=== PATIENT | female | born 1950 | race Caucasian/White ===

== ENCOUNTER → 2016-06-20 | Day surgery (SDC) | payer OTHER ==
[2016-06-10 08:52] VITALS: Ht 162.6 cm; Wt 84.1 kg
[~2016-06-20] VITALS: Ht 162.6 cm; Wt 84.1 kg
[~2016-06-20] MED LIST: ASPI81TA28 PO; CALC600T37 PO; CHOL1TAB42 PO; COEN1CAP7 PO; DEXAMETHASONE SOD INJ 4 MG/ML VIAL ONE; DILT1CAP PO; FLEC100T21 PO; FLEC50TA20 PO; FURO-85 PO; LIDOCAINE HCL 1% MPF 5 ML VIAL ONE; MAGN400T6 PO; OMEP40CA PO; SIMV20TA2 PO; SPIR50TA2 PO
--- NOTE | 2016-06-20 08:09 | History & Physical Bridge - [place] ---
H&P Re-Evaluation Bridge Note: I have examined the patient, reviewed the History & Physical and in the interval since the performance of the History & Physical I have noted the following changes of clinical significance: No changes noted
--- NOTE | 2016-06-20 08:28 | Discharge Instructions-SurgCtr ---
Discharge Instructions Visit Reason for Visit: Scoliosis Of Lumbar Spine, Chronic Low Back Pain Discharge Discharge Diagnosis / Problem: scoliosis Discharge Goals Goal(s): Improve function Activity Recommendations Activity Limitations: resume your previous activity Lifting Limitations: none Exercise/Sports Limitations: none May Resume Sexual Activity: when tolerated Shower/Bathe: no limitations Driving or Machine Use: no limitations Anesthesia . Post Anesthesia Instructions: If you have had General Anesthesia or IV Sedation: * Do not drive today. * Resume driving when surgeon permits. * Do not make important decisions or sign legal documents today. * Call surgeon for: 1. Temperature elevations greater than 101 degrees F. 2. Uncontrollable pain. 3. Excessive bleeding. 4. Persistent nausea and vomiting. 5. Medication intolerance (nausea, vomiting or rash). * For nausea and vomiting use only clear liquids such as: tea, soda, bouillon until nausea subsides, then gradually increase diet as tolerated. * If you have any concerns or questions, call your surgeon's office. If physician is unavailable and it is an emergency, call 911 or go to the nearest emergency room. . Diet Recommendations Home Diet: resume previous diet Fluid Restriction: None Procedures Procedures Performed: LUMBAR EPIDURAL STEROID INJECTION Pending Studies Studies pending at discharge: no Medical Emergencies . Who to Call and When: Medical Emergencies: If at any time you feel your situation is an emergency, please call 911 immediately. . Non-Emergent Contact Non-Emergency issues call your: Surgeon Call Non-Emergent contact if: your pain is concerning you . . "Provider Documentation" section prepared by Tushar Hansen.
--- NOTE | 2016-06-20 08:29 | [facility] Post Operative Brief Note ---
Immediate Operative Summary Operative Date Jun 20, 2016. Pre-Operative Diagnosis SCOLIOSIS Post-Operative Diagnosis SCOLIOSIS Procedure(s) Performed LUMBAR EPIDURAL STEROID INJECTION Surgeon DR. Axel MORRISON Findings severe scoliosis Complication(s) None Disposition Recovery Room / PACU
[2016-06-20 08:32] VITALS: TEMP 36.9
--- NOTE | 2016-06-20 08:36 | OPERATIVE REPORT ---
DATE OF OPERATION: 06/20/2016 PREOPERATIVE DIAGNOSIS: Severe scoliosis lumbar spine. POSTOPERATIVE DIAGNOSIS: Same. PROCEDURE: Epidural steroid L5-S1 lumbar spine. SURGEON: Dr. Hansen. COMPLICATIONS: 0. BLOOD LOSS: 0. DESCRIPTION OF PROCEDURE: The patient was taken to the minor procedure room and placed prone, prepped and draped sterile. We engaged the 22 gauge Tuohy needle to the epidural space. 2 mL of dexamethasone injected without incident. There were no complications. There were no problems. She was discharged home in improved stable condition. I attest to the content of the Intraoperative Record and any orders documented therein. Any exceptio ns are noted below.
[2016-06-20 08:49] VITALS: BP 116/74; PULSE 54; O2SAT 94
== END | disposition home or self-care (01) ==
LOC: X.SURG 06:50
PROVIDERS: ATTEND Orthopaedic Surgery Orthopaedic Surgery of the Spine
DX: M41.87 Other forms of scoliosis, lumbosacral region (principal); I10 Essential (primary) hypertension; Z88.2 Allergy status to sulfonamides; Z96.649 Presence of unspecified artificial hip joint; Z98.890 Other specified postprocedural states; Z90.710 Acquired absence of both cervix and uterus

== ENCOUNTER → 2016-06-28 | Outpatient (CLI) | payer OTHER ==
[~2016-06-28] MED LIST changes: -DEXAMETHASONE SOD INJ 4 MG/ML VIAL ONE; -LIDOCAINE HCL 1% MPF 5 ML VIAL ONE
--- NOTE | 2016-06-28 12:18 | DIAGNOSTIC IMAGING REPORT ---
CHEST 2 VIEWS ROUTINE HISTORY: BRONCHITIS COMPARISON: Chest 11/09/2013. FINDINGS: Chronic elevation of the right hemidiaphragm. Moderate hiatus hernia, unchanged. The heart is normal in size. No new focal lung consolidations to suggest pneumonia. No evidence for pulmonary edema. Stable linear scarlike density within the right lung apex and mild right apical pleural thickening. No pleural effusions. No pneumothorax. Stable linear densities at the left lung base consistent with subsegmental atelectasis or scarring. IMPRESSION: No significant change compared to the prior study. No acute process. Electronically signed by: Stefano Dnonelly M.D. 06/28/2016 12:17 PM Dictated Date/Time: 06/28/2016 12:14 PM
== END | disposition home or self-care (01) ==
LOC: C.RADPV 11:51
PROVIDERS: ATTEND Family Medicine
DX: J40 Bronchitis, not specified as acute or chronic (principal)

== ENCOUNTER → 2017-05-21 | Day surgery (SDC) | payer OTHER ==
[2017-05-16 09:19] VITALS: Ht 160 cm; Wt 84.1 kg
[~2017-05-21] VITALS: Ht 160 cm; Wt 84.1 kg
[~2017-05-21] MED LIST changes: +DEXAMETHASONE SOD INJ 4 MG/ML VIAL ONE; +DILT-115 PO; +DILT120C68 PO; -DILT1CAP PO; -FURO-85 PO; +HYZ/50125 PO; +LIDOCAINE HCL 1% MPF 5 ML VIAL ONE; -OMEP40CA PO; +OMEP40CA41 PO; +SPIR25TA6 PO; -SPIR50TA2 PO; +ZYCAM PO
--- NOTE | 2017-05-21 07:35 | Discharge Instructions-SurgCtr ---
Discharge Instructions Date of Service May 21, 2017. Visit Reason for Visit: Scoliosis Discharge Discharge Diagnosis / Problem: SAME Discharge Goals Goal(s): Improve function Activity Recommendations Activity Limitations: resume your previous activity Anesthesia . Post Anesthesia Instructions: If you have had General Anesthesia or IV Sedation: * Do not drive today. * Resume driving when surgeon permits. * Do not make important decisions or sign legal documents today. * Call surgeon for: 1. Temperature elevations greater than 101 degrees F. 2. Uncontrollable pain. 3. Excessive bleeding. 4. Persistent nausea and vomiting. 5. Medication intolerance (nausea, vomiting or rash). * For nausea and vomiting use only clear liquids such as: tea, soda, bouillon until nausea subsides, then gradually increase diet as tolerated. * If you have any concerns or questions, call your surgeon's office. If physician is unavailable and it is an emergency, call 911 or go to the nearest emergency room. . Diet Recommendations Home Diet: no limitations Procedures Procedures Performed: L4-5, L5-S1 Epidural Steroid Injections Pending Studies Studies pending at discharge: no Medical Emergencies . Who to Call and When: Medical Emergencies: If at any time you feel your situation is an emergency, please call 911 immediately. . Non-Emergent Contact Non-Emergency issues call your: Primary Care Provider . . "Provider Documentation" section prepared by Tushar Hansen. .
--- NOTE | 2017-05-21 07:35 | [facility] Post Operative Brief Note ---
Immediate Operative Summary Operative Date May 21, 2017. Pre-Operative Diagnosis Scoliosis Post-Operative Diagnosis Scoliosis Procedure(s) Performed L4-5, L5-S1 Epidural Steroid Injections Surgeon Dr. Axel Hansen Forgeman Helper Surgeon(s) None Estimated Blood Loss 0 Findings SCOLIOSIS Specimens 0 Complication(s) None Disposition Recovery Room / PACU
[2017-05-21 07:38] VITALS: TEMP 36.6
[2017-05-21 07:45] VITALS: BP 124/77; PULSE 64; O2SAT 96
--- NOTE | 2017-05-21 08:37 | OPERATIVE REPORT ---
DATE OF OPERATION: 05/21/2017 PREOPERATIVE DIAGNOSIS: Stenosis and scoliosis lumbar spine. POSTOPERATIVE DIAGNOSIS: Same. PROCEDURE: Epidural steroid injection L4-L5 and L5-S1 lumbar spine. SURGEON: Dr. Hansen. COMPLICATIONS: None. DESCRIPTION OF PROCEDURE: The patient was taken to the minor procedure room and placed prone, scrubbed, prepped and draped sterile. I advanced the 22 gauge Tuohy needle to the epidural space centrally at L4-L5 and L5-S1. I used a volume acceptance technique. One mL of dexamethasone injected to these areas without incident. There were no complications. The patient returned to recovery room and discharged home. I attest to the content of the Intraoperative Record and any orders documented therein. Any exception s are noted below.
== END | disposition home or self-care (01) ==
LOC: X.SURG 06:30
PROVIDERS: ATTEND Orthopaedic Surgery Orthopaedic Surgery of the Spine
DX: M48.061 Spinal stenosis, lumbar region without neurogenic claudication (principal); M41.9 Scoliosis, unspecified; Z96.649 Presence of unspecified artificial hip joint; Z98.890 Other specified postprocedural states; Z90.710 Acquired absence of both cervix and uterus; Z86.718 Personal history of other venous thrombosis and embolism; I10 Essential (primary) hypertension; Z82.49 Family history of ischemic heart disease and other diseases of the circulatory system; Z82.3 Family history of stroke

== ENCOUNTER → 2017-06-17 | Outpatient (CLI) | payer OTHER ==
[~2017-06-17] MED LIST changes: -DEXAMETHASONE SOD INJ 4 MG/ML VIAL ONE; -HYZ/50125 PO; -LIDOCAINE HCL 1% MPF 5 ML VIAL ONE; -SPIR25TA6 PO; +SPR25 PO; -ZYCAM PO
--- NOTE | 2017-06-17 14:37 | MAMMOGRAPHY REPORT ---
BILATERAL DIGITAL SCREENING MAMMOGRAM TOMOSYNTHESIS WITH CAD: 06/17/2017 CLINICAL HISTORY: Routine screening. Patient has no complaints. TECHNIQUE: Breast tomosynthesis in addition to standard 2D mammography was performed. Current study was also evaluated with a Computer Aided Detection (CAD) system. COMPARISON: Comparison is made to exams dated: 05/07/2016 mammogram, 02/11/2011 mammogram, 09/06/2009 mammogram - [facility], 07/27/2008, 07/22/2007, and 07/16/2006. BREAST COMPOSITION: There are scattered areas of fibroglandular density in both breasts. FINDINGS: There is stable nodularity bilaterally, and stable focal asymmetry in the upper outer midd le one third of the left breast. Mild vascular calcification in the breasts. No new suspicious mass , architectural distortion or cluster of microcalcifications is seen. IMPRESSION: ACR BI-RADS CATEGORY 1: NEGATIVE There is no mammographic evidence of malignancy. A 1 year screening mammogram is recommended. The pa tient will receive written notification of the results. Approximately 10% of breast cancers are not detected with mammography. A negative mammographic report should not delay biopsy if a clinically suggestive mass is present. Debbie Gonzalez M.D. ay/:06/17/2017 08:16:33 V Belt Finisher: Chelle Oshea, [facility] letter sent: Normal 1/2 BI-RADS Code: ACR BI-RADS Category 1: Negative
== END | disposition home or self-care (01) ==
LOC: C.MAMM 07:20
PROVIDERS: ATTEND Family Medicine
DX: Z12.31 Encounter for screening mammogram for malignant neoplasm of breast (principal)

== ENCOUNTER → 2017-07-03 | Day surgery (SDC) | payer OTHER ==
[2017-06-26 09:12] VITALS: Ht 160 cm; Wt 84.1 kg
[~2017-07-03] VITALS: Ht 160 cm; Wt 84.1 kg
[~2017-07-03] MED LIST changes: +ALBUT/IPRATROP 3MG/0.5MG NEB 3 ML VIAL INH ONE; +FENTANYL CITRATE INJ 50 MCG/1 ML 2 ML VIAL ONE; +HYZ/50125 PO; +LIDOCAINE HCL 2% 2 ML VIAL (20MG/ML) ONE; +PROPOFOL IV EMULSION 10 MG/ML 20 ML VIAL IV ONE; +SODIUM CHLORIDE 0.9% 500ML 500 ML IV ONE; +ZYCAM PO
[2017-07-03 14:33] VITALS: TEMP 37
--- NOTE | 2017-07-03 14:33 | Endo History and Physical ---
History & Physical Date of Service: Jul 03, 2017. Chief Complaint: chronic reflux esophagitis Referring Physician: Dr. Amrik Martinez History of Present Illness 67 yo CF who presents for colonoscopy secondary to Chronic GERD. Past Medical History Atrial Fibrillation, Arthritis, Gastrointestinal Disorder, Pulmonary Emboli, Reflux, Hypertension Past Surgical History Hx Cardiac Surgery: Yes (CARDIOVERSION) Hx Internal Defibrillator: No Hx Pacemaker: No Hx Abdominal Surgery: Yes (HERNIA REPAIR, HYSTER (WITHIN 3 SURGERIES)) Hx of Implantable Prosthesis: No Hx Post-Op Nausea and Vomiting: No Hx Cancer Surgery: No Hx Thoracic Surgery: No Hx Orthopedic: Yes (LT DAVID, RT HIP ABCESS REMOVAL) Hx Urinary Tract Surgery: No Family History None Social History Smoking Status: Never Smoker Hx Substance Use: No Hx Alcohol Use: No Allergies Coded Allergies: Penicillins (Verified Allergy, Intermediate, UPSET STOMACH - CAN TOLERATE IF NEEDED, 06/26/17) Sulfa Drugs (Verified Allergy, Intermediate, RASH/HIVES, 06/26/17) Latex1 -Allergic Contact Dermititis (Verified Adverse Reaction, Mild, POWDER IN LATEX GLOVES-->ITCHING, SENSITIVITY NOT ALLERGY, 06/26/17) Codeine (Verified Adverse Reaction, Unknown, PROJECTILE VOMITING,HEADACHE , 06/26/17) Current Medications Reported Home Medications Medications Dose Route/Sig Max Daily Dose Days Date Category [Zycam] 1 Tab PO DAILY PRN 06/26/17 Reported Hyzaar 12.5MG/50MG (HCTZ/Losartan Potassium) Tab 1 Tab PO QAM 06/26/17 Reported Tiazac (Diltiazem HCl) 240 Mg Capcr 240 Mg PO QAM 05/16/17 Reported Tiazac (Diltiazem HCl) 120 Mg Capcr 120 Mg PO HS 05/16/17 Reported Prilosec (Omeprazole) 40 Mg Cap 40 Mg PO QAM 05/16/17 Reported Spironolactone 25 Mg Tab 25 Mg PO QAM 05/16/17 Reported Aspirin Ec (Aspirin) 81 Mg Tab 81 Mg PO QPM 06/20/16 Reported Vitamin D (Cholecalciferol) 5,000 Unit Tab 1 Tab PO QAM 06/10/16 Reported Calcium 600 Mg Tab 2 Tabs PO QAM 06/10/16 Reported Zocor (Simvastatin) 20 Mg Tab 20 Mg PO QPM 06/10/16 Reported Tambocor (Flecainide Acetate) 50 Mg Tab 50 Mg PO HS 06/10/16 Reported Tambocor (Flecainide Acetate) 100 Mg Tab 100 Mg PO QAM 06/10/16 Reported Coq10 (Coenzyme Q10 (Ubidecarenone)) 200 Mg Cap 200 Mg PO QAM 11/09/13 Reported Mag-Ox (Magnesium Oxide) 400 Mg Tab 400 Mg PO BID 11/09/13 Reported Vital Signs Weight (Kilograms): 84.09 Height (Feet): 5 Height (Inches): 3 Physical Exam General Appearance: WD/WN, no apparent distress Respiratory/Chest: Auscultation: breath sounds normal Cardiovascular: Heart Auscultation: RRR Abdomen: Bowel Sounds: normal Inspection & Palpation: soft, non-distended, no tenderness, guarding & rebound Assessment and Plan Assessment: 67 yo CF who presents for colonoscopy secondary to Chronic GERD. Plan: Proceed with EGD.
--- NOTE | 2017-07-03 15:42 | GI REPORT ---
Procedure Date: 07/03/2017 3:03 PM THIS REPORT HAS BEEN AMENDED Addendum Number: 1 Addendum Date: 07/03/2017 3:45:07 PM Start Carafate 1g by mouth Four times daily prior to each meal and at bedtime for 10 days. Procedure: Upper GI endoscopy Indications: Gastro-esophageal reflux disease Medicines: Monitored Anesthesia Care Complications: No immediate complications. Estimated Blood Loss: Estimated blood loss: none. Procedure: Pre-Anesthesia Assessment: - Prior to the procedure, a History and Physical was performed, and patient medications and allergies were reviewed. The patient's tolerance of previous anesthesia was also reviewed. The risks and benefits of the procedure and the sedation options and risks were discussed with the patient. All questions were answered, and informed consent was obtained. Prior Anticoagulants: The patient has taken no previous anticoagulant or antiplatelet agents. ASA Grade Assessment: II - A patient with mild systemic disease. After reviewing the risks and benefits, the patient was deemed in satisfactory condition to undergo the procedure. After obtaining informed consent, the endoscope was passed under direct vision. Throughout the procedure, the patient's blood pressure, pulse, and oxygen saturations were monitored continuously. The scope was introduced through the mouth, and advanced to the second part of duodenum. The upper GI endoscopy was accomplished without difficulty. The patient tolerated the procedure well. Findings: The esophagus was normal. A medium-sized hiatal hernia was present. Two non-bleeding cratered gastric ulcers with no stigmata of bleeding were found in the gastric antrum. The largest lesion was 5 mm in largest dimension. Biopsies were taken with a cold forceps for histology. The examined duodenum was normal. Impression: - Normal esophagus. - Medium-sized hiatal hernia. - Non-bleeding gastric ulcers with no stigmata of bleeding. Biopsied. - Normal examined duodenum. Recommendation: - Resume previous diet. - Continue present medications. - Await pathology results. - Return to primary care physician as previously scheduled. William Karolyn Sarmiento DO 07/03/2017 3:41:40 PM This report has been signed electronically. Note Initiated On: 07/03/2017 3:03 PM I attest to the content of the Intraoperative Record and orders documented therein, exceptions below William MccannRakesh Sarmiento, DO 07/03/2017 3:45:40 PM This report has been signed electronically.
--- NOTE | 2017-07-03 15:44 | Discharge Instructions ---
Endoscopy Patient Instructions Date / Procedure(s) Performed Jul 03, 2017. EGD Allergy Information Coded Allergies: Penicillins (Verified Allergy, Intermediate, UPSET STOMACH - CAN TOLERATE IF NEEDED, 06/26/17) Sulfa Drugs (Verified Allergy, Intermediate, RASH/HIVES, 06/26/17) Latex1 -Allergic Contact Dermititis (Verified Adverse Reaction, Mild, POWDER IN LATEX GLOVES-->ITCHING, SENSITIVITY NOT ALLERGY, 06/26/17) Codeine (Verified Adverse Reaction, Unknown, PROJECTILE VOMITING,HEADACHE , 06/26/17) Discharge Date / Findings Jul 03, 2017. Gastric ulcers s/p biopsies Hiatal hernia Medication Instructions Stopped Medication(s): last dose ASA 07/01 1) Start Carafate 1g by mouth four times daily prior to each meal and at bedtime for 10 days. 2) OK to resume all medications today as prescribed Reported Home Medications Medications Dose Route/Sig Max Daily Dose Days Date Category [Zycam] 1 Tab PO DAILY PRN 06/26/17 Reported Hyzaar 12.5MG/50MG (HCTZ/Losartan Potassium) Tab 1 Tab PO QAM 06/26/17 Reported Tiazac (Diltiazem HCl) 240 Mg Capcr 240 Mg PO QAM 05/16/17 Reported Tiazac (Diltiazem HCl) 120 Mg Capcr 120 Mg PO HS 05/16/17 Reported Prilosec (Omeprazole) 40 Mg Cap 40 Mg PO QAM 05/16/17 Reported Spironolactone 25 Mg Tab 25 Mg PO QAM 05/16/17 Reported Aspirin Ec (Aspirin) 81 Mg Tab 81 Mg PO QPM 06/20/16 Reported Vitamin D (Cholecalciferol) 5,000 Unit Tab 1 Tab PO QAM 06/10/16 Reported Calcium 600 Mg Tab 2 Tabs PO QAM 06/10/16 Reported Zocor (Simvastatin) 20 Mg Tab 20 Mg PO QPM 06/10/16 Reported Tambocor (Flecainide Acetate) 50 Mg Tab 50 Mg PO HS 06/10/16 Reported Tambocor (Flecainide Acetate) 100 Mg Tab 100 Mg PO QAM 06/10/16 Reported Coq10 (Coenzyme Q10 (Ubidecarenone)) 200 Mg Cap 200 Mg PO QAM 11/09/13 Reported Mag-Ox (Magnesium Oxide) 400 Mg Tab 400 Mg PO BID 11/09/13 Reported Provider Instructions Activity Restrictions - No exercising or heavy lifting for 24 hours. - Do not drink alcohol the day of the procedure. - Do not drive a car or operate machinery until the day after the procedure. - Do not make any important decisions or sign important papers in 24 hours after the procedure. Following Day: - Return to full activity which may include returning to work/school. Diet Start your diet with liquids and light foods (jello, soup, juice, toast). Then eat your usual diet if not nauseated. Treatment For Common After Affects For mild abdominal pain, bloating, or excessive gas: - Rest - Eat lightly - Lie on right side Follow-Up Information Follow-up with Dr. Amrik Martinez as scheduled Anesthesia Information What You Should Know You have had a procedure that required some medicine to reduce anxiety and discomfort. This treatment is called moderate sedation. After receiving the treatment, you may be sleepy, but you will be able to breathe on your own. The effects of the treatment may last for several hours. Follow these instructions along with Activity/Diet recommendations noted above: * Do NOT do anything where dizziness or clumsiness would be dangerous. * Rest quietly at home today, then you can be up and about tomorrow. * Have a responsible person stay with you the rest of today. * You may have had an I.V. today. If so, you may take the dressing off later today. Recommendations Call your doctor if: * Trouble breathing * Continuous vomiting for more than 24 hours * Temperature above 101 degrees * Severe abdominal pain or bloating * Pain not relieved by pain medicine ordered * There is increased drainage or redness from any incision * A large amount of rectal bleeding greater than 2-3 tablespoons. (If you had a polyp/s removed or have hemorrhoids, a small amount of blood - from the rectum is to be expected.) * You have any unanswered questions or concerns. IN THE EVENT OF A SERIOUS EMERGENCY, GO TO THE NEAREST EMERGENCY ROOM Your discharge instructions were prepared by provider William Sarmiento. Patient Instructions Signature Page Katya Orozco Patient (or Guardian) Signature/Date: I have read and understand the instructions given to me by my caregivers. Caregiver/RN/Doctor Signature/Date: The above-named patient and/or guardian has received patient instructions on this date. + Original Patient Signature Page (only) stays with chart. Please make copy for patient.
[2017-07-03 16:04] VITALS: BP 168/100; PULSE 71; O2SAT 94
--- NOTE | 2017-07-03 19:48 | Anesthesiology Progress Note ---
Anesthesia Post Op Note Date & Time Jul 03, 2017 at 19:48 Vital Signs Pain Intensity: 0 Vital Signs Past 12 Hours Date Time Temp Pulse Resp B/P (MAP) Pulse Ox O2 Delivery O2 Flow Rate FiO2 07/03/17 16:04 71 20 168/100 (122) 94 Room Air 07/03/17 15:52 74 20 145/69 (94) 96 Room Air 07/03/17 15:46 74 20 134/90 (105) 94 Room Air 07/03/17 15:41 73 20 141/67 (91) 95 Room Air 07/03/17 14:33 37 81 20 154/82 (106) 96 Room Air Notes Mental Status: alert / awake / arousable, participated in evaluation Pt Amnestic to Procedure: Yes Nausea / Vomiting: adequately controlled Pain: adequately controlled Airway Patency, RR, SpO2: stable & adequate BP & HR: stable & adequate Hydration State: stable & adequate Anesthetic Complications: no major complications apparent Patient seen prior. Noted entered in PM.
== END | disposition home or self-care (01) ==
LOC: C.GI 14:07
PROVIDERS: ATTEND Internal Medicine
DX: K21.0 Gastro-esophageal reflux disease with esophagitis (principal); K44.9 Diaphragmatic hernia without obstruction or gangrene; K25.9 Gastric ulcer, unspecified as acute or chronic, without hemorrhage or perforation; K29.00 Acute gastritis without bleeding; K29.50 Unspecified chronic gastritis without bleeding; I48.91 Unspecified atrial fibrillation; M19.90 Unspecified osteoarthritis, unspecified site; Z86.711 Personal history of pulmonary embolism; I10 Essential (primary) hypertension; Z91.040 Latex allergy status; Z88.2 Allergy status to sulfonamides; Z88.5 Allergy status to narcotic agent; Z88.0 Allergy status to penicillin; Z79.899 Other long term (current) drug therapy; Z90.89 Acquired absence of other organs; Z79.82 Long term (current) use of aspirin; Z90.710 Acquired absence of both cervix and uterus; Z98.890 Other specified postprocedural states; Z96.642 Presence of left artificial hip joint

== ENCOUNTER → 2017-08-27 | Day surgery (SDC) | payer OTHER ==
[2017-08-15 08:12] VITALS: Ht 160 cm; Wt 84.1 kg
[~2017-08-27] VITALS: Ht 160 cm; Wt 84.1 kg
[~2017-08-27] MED LIST changes: -ALBUT/IPRATROP 3MG/0.5MG NEB 3 ML VIAL INH ONE; -FENTANYL CITRATE INJ 50 MCG/1 ML 2 ML VIAL ONE; -SODIUM CHLORIDE 0.9% 500ML 500 ML IV ONE
--- NOTE | 2017-08-27 08:29 | Endo History and Physical ---
History & Physical Date of Service: Aug 27, 2017. Chief Complaint: F/U gastric ulcers Referring Physician: Dr Martinez History of Present Illness 67 yo CF who presents for EGD secondary to gastric ulcers. Past Medical History Atrial Fibrillation, Arthritis, Gastrointestinal Disorder, Pulmonary Emboli, Reflux, Hypertension Past Surgical History Hx Cardiac Surgery: Yes (CARDIOVERSION) Hx Internal Defibrillator: No Hx Pacemaker: No Hx Abdominal Surgery: Yes (HERNIA REPAIR, HYSTER (WITHIN 3 SURGERIES)) Hx of Implantable Prosthesis: No Hx Post-Op Nausea and Vomiting: No Hx Cancer Surgery: No Hx Thoracic Surgery: No Hx Orthopedic: Yes (LT DAVID, RT HIP ABCESS REMOVAL) Hx Urinary Tract Surgery: No Family History None Social History Smoking Status: Never Smoker Hx Substance Use: No Hx Alcohol Use: No Allergies Coded Allergies: Penicillins (Verified Allergy, Intermediate, UPSET STOMACH - CAN TOLERATE IF NEEDED, 08/15/17) Sulfa Drugs (Verified Allergy, Intermediate, RASH/HIVES, 08/15/17) Latex1 -Allergic Contact Dermititis (Verified Adverse Reaction, Mild, POWDER IN LATEX GLOVES-->ITCHING, SENSITIVITY NOT ALLERGY, 08/15/17) Codeine (Verified Adverse Reaction, Unknown, PROJECTILE VOMITING,HEADACHE , 08/15/17) Current Medications Reported Home Medications Medications Dose Route/Sig Max Daily Dose Days Date Category [Zycam] 1 Tab PO DAILY PRN 06/26/17 Reported Hyzaar 12.5MG/50MG (HCTZ/Losartan Potassium) Tab 1 Tab PO QAM 06/26/17 Reported Tiazac (Diltiazem HCl) 240 Mg Capcr 240 Mg PO QAM 05/16/17 Reported Tiazac (Diltiazem HCl) 120 Mg Capcr 120 Mg PO HS 05/16/17 Reported Prilosec (Omeprazole) 40 Mg Cap 40 Mg PO QAM 05/16/17 Reported Spironolactone 25 Mg Tab 25 Mg PO QAM 05/16/17 Reported Aspirin Ec (Aspirin) 81 Mg Tab 81 Mg PO QPM 06/20/16 Reported Vitamin D (Cholecalciferol) 5,000 Unit Tab 1 Tab PO QAM 06/10/16 Reported Calcium 600 Mg Tab 2 Tabs PO QAM 06/10/16 Reported Zocor (Simvastatin) 20 Mg Tab 20 Mg PO QPM 06/10/16 Reported Tambocor (Flecainide Acetate) 50 Mg Tab 50 Mg PO HS 06/10/16 Reported Tambocor (Flecainide Acetate) 100 Mg Tab 100 Mg PO QAM 06/10/16 Reported Coq10 (Coenzyme Q10 (Ubidecarenone)) 200 Mg Cap 200 Mg PO QAM 11/09/13 Reported Mag-Ox (Magnesium Oxide) 400 Mg Tab 400 Mg PO BID 11/09/13 Reported Vital Signs Weight (Kilograms): 84.09 Height (Feet): 5 Height (Inches): 3 Date Time Temp Pulse Resp B/P (MAP) Pulse Ox O2 Delivery O2 Flow Rate FiO2 08/27/17 08:24 36.7 71 18 174/80 (111) 96 Room Air Physical Exam General Appearance: WD/WN, no apparent distress Respiratory/Chest: Auscultation: breath sounds normal Cardiovascular: Heart Auscultation: RRR Abdomen: Bowel Sounds: normal Inspection & Palpation: soft, non-distended, no tenderness, guarding & rebound Assessment and Plan Assessment: 67 yo CF who presents for EGD secondary to gastric ulcers. Plan: Proceed with EGD.
--- NOTE | 2017-08-27 09:21 | Discharge Instructions ---
Endoscopy Patient Instructions Date / Procedure(s) Performed Aug 27, 2017. EGD Allergy Information Coded Allergies: Penicillins (Verified Allergy, Intermediate, UPSET STOMACH - CAN TOLERATE IF NEEDED, 08/15/17) Sulfa Drugs (Verified Allergy, Intermediate, RASH/HIVES, 08/15/17) Latex1 -Allergic Contact Dermititis (Verified Adverse Reaction, Mild, POWDER IN LATEX GLOVES-->ITCHING, SENSITIVITY NOT ALLERGY, 08/15/17) Codeine (Verified Adverse Reaction, Unknown, PROJECTILE VOMITING,HEADACHE , 08/15/17) Discharge Date / Findings Aug 27, 2017. Gastric ulcer s/p biopsies Hiatal hernia Medication Instructions 1) Increase Omeprazole to 40mg by mouth twice daily 1/2 hour prior to breakfast and dinner. 2) OK to resume all medications today as prescribed Reported Home Medications Medications Dose Route/Sig Max Daily Dose Days Date Category [Zycam] 1 Tab PO DAILY PRN 06/26/17 Reported Hyzaar 12.5MG/50MG (HCTZ/Losartan Potassium) Tab 1 Tab PO QAM 06/26/17 Reported Tiazac (Diltiazem HCl) 240 Mg Capcr 240 Mg PO QAM 05/16/17 Reported Tiazac (Diltiazem HCl) 120 Mg Capcr 120 Mg PO HS 05/16/17 Reported Prilosec (Omeprazole) 40 Mg Cap 40 Mg PO QAM 05/16/17 Reported Spironolactone 25 Mg Tab 25 Mg PO QAM 05/16/17 Reported Aspirin Ec (Aspirin) 81 Mg Tab 81 Mg PO QPM 06/20/16 Reported Vitamin D (Cholecalciferol) 5,000 Unit Tab 1 Tab PO QAM 06/10/16 Reported Calcium 600 Mg Tab 2 Tabs PO QAM 06/10/16 Reported Zocor (Simvastatin) 20 Mg Tab 20 Mg PO QPM 06/10/16 Reported Tambocor (Flecainide Acetate) 50 Mg Tab 50 Mg PO HS 06/10/16 Reported Tambocor (Flecainide Acetate) 100 Mg Tab 100 Mg PO QAM 06/10/16 Reported Coq10 (Coenzyme Q10 (Ubidecarenone)) 200 Mg Cap 200 Mg PO QAM 11/09/13 Reported Mag-Ox (Magnesium Oxide) 400 Mg Tab 400 Mg PO BID 6/17/14 Reported Provider Instructions Activity Restrictions - No exercising or heavy lifting for 24 hours. - Do not drink alcohol the day of the procedure. - Do not drive a car or operate machinery until the day after the procedure. - Do not make any important decisions or sign important papers in 24 hours after the procedure. Following Day: - Return to full activity which may include returning to work/school. Diet Start your diet with liquids and light foods (jello, soup, juice, toast). Then eat your usual diet if not nauseated. Treatment For Common After Affects For mild abdominal pain, bloating, or excessive gas: - Rest - Eat lightly - Lie on right side Follow-Up Information Follow-up with Dr Martinez as scheduled Anesthesia Information What You Should Know You have had a procedure that required some medicine to reduce anxiety and discomfort. This treatment is called moderate sedation. After receiving the treatment, you may be sleepy, but you will be able to breathe on your own. The effects of the treatment may last for several hours. Follow these instructions along with Activity/Diet recommendations noted above: * Do NOT do anything where dizziness or clumsiness would be dangerous. * Rest quietly at home today, then you can be up and about tomorrow. * Have a responsible person stay with you the rest of today. * You may have had an I.V. today. If so, you may take the dressing off later today. Recommendations Call your doctor if: * Trouble breathing * Continuous vomiting for more than 24 hours * Temperature above 101 degrees * Severe abdominal pain or bloating * Pain not relieved by pain medicine ordered * There is increased drainage or redness from any incision * A large amount of rectal bleeding greater than 2-3 tablespoons. (If you had a polyp/s removed or have hemorrhoids, a small amount of blood - from the rectum is to be expected.) * You have any unanswered questions or concerns. IN THE EVENT OF A SERIOUS EMERGENCY, GO TO THE NEAREST EMERGENCY ROOM Your discharge instructions were prepared by provider William Sarmiento. Patient Instructions Signature Page Katya Orozco Patient (or Guardian) Signature/Date: I have read and understand the instructions given to me by my caregivers. Caregiver/RN/Doctor Signature/Date: The above-named patient and/or guardian has received patient instructions on this date. + Original Patient Signature Page (only) stays with chart. Please make copy for patient.
--- NOTE | 2017-08-27 09:35 | GI REPORT ---
Procedure Date: 08/27/2017 8:18 AM Procedure: Upper GI endoscopy Indications: Follow-up of acute gastric ulcer Medicines: Monitored Anesthesia Care Complications: No immediate complications. Estimated Blood Loss: Estimated blood loss: none. Procedure: Pre-Anesthesia Assessment: - Prior to the procedure, a History and Physical was performed, and patient medications and allergies were reviewed. The patient's tolerance of previous anesthesia was also reviewed. The risks and benefits of the procedure and the sedation options and risks were discussed with the patient. All questions were answered, and informed consent was obtained. Prior Anticoagulants: The patient has taken aspirin, last dose was 1 day prior to procedure. ASA Grade Assessment: III - A patient with severe systemic disease. After reviewing the risks and benefits, the patient was deemed in satisfactory condition to undergo the procedure. After obtaining informed consent, the endoscope was passed under direct vision. Throughout the procedure, the patient's blood pressure, pulse, and oxygen saturations were monitored continuously. The Scope was introduced through the mouth, and advanced to the second part of duodenum. The upper GI endoscopy was accomplished without difficulty. The patient tolerated the procedure well. Findings: The esophagus was normal. A medium-sized hiatal hernia was present. One non-bleeding cratered gastric ulcer with no stigmata of bleeding was found in the gastric antrum. The lesion was 10 mm in largest dimension. Biopsies were taken with a cold forceps for Helicobacter pylori testing. The examined duodenum was normal. Impression: - Normal esophagus. - Medium-sized hiatal hernia. - Non-bleeding gastric ulcer with no stigmata of bleeding. Biopsied. - Normal examined duodenum. Recommendation: - Resume previous diet. - Use Prilosec (omeprazole) 40 mg PO BID. - Await pathology results. - Return to GI office as previously scheduled. William Sarmiento DO 08/27/2017 9:34:38 AM This report has been signed electronically. Note Initiated On: 08/27/2017 8:18 AM I attest to the content of the Intraoperative Record and orders documented therein, exceptions below
--- NOTE | 2017-08-27 09:43 | Anesthesiology Progress Note ---
Anesthesia Post Op Note Date & Time Aug 27, 2017 at 09:43 Vital Signs Vital Signs Past 12 Hours Date Time Temp Pulse Resp B/P (MAP) Pulse Ox O2 Delivery O2 Flow Rate FiO2 08/27/17 09:23 60 18 94/56 (69) 94 Room Air 08/27/17 08:24 36.7 71 18 174/80 (111) 96 Room Air Notes Mental Status: alert / awake / arousable, participated in evaluation Pt Amnestic to Procedure: Yes Nausea / Vomiting: adequately controlled Pain: adequately controlled Airway Patency, RR, SpO2: stable & adequate BP & HR: stable & adequate Hydration State: stable & adequate Anesthetic Complications: no major complications apparent
[2017-08-27 09:56] VITALS: BP 129/59; PULSE 63; O2SAT 98
== END | disposition home or self-care (01) ==
LOC: C.GI 07:44
PROVIDERS: ATTEND Internal Medicine
DX: K25.9 Gastric ulcer, unspecified as acute or chronic, without hemorrhage or perforation (principal); K29.00 Acute gastritis without bleeding; K44.9 Diaphragmatic hernia without obstruction or gangrene; E66.9 Obesity, unspecified; I48.0 Paroxysmal atrial fibrillation; I10 Essential (primary) hypertension; M19.90 Unspecified osteoarthritis, unspecified site; K21.9 Gastro-esophageal reflux disease without esophagitis; Z88.5 Allergy status to narcotic agent; Z88.2 Allergy status to sulfonamides; Z88.0 Allergy status to penicillin; Z91.040 Latex allergy status; Z86.711 Personal history of pulmonary embolism; Z96.642 Presence of left artificial hip joint; Z79.82 Long term (current) use of aspirin

== ENCOUNTER → 2017-09-10 | Outpatient (CLI) | payer OTHER ==
[~2017-09-10] MED LIST changes: -LIDOCAINE HCL 2% 2 ML VIAL (20MG/ML) ONE; -PROPOFOL IV EMULSION 10 MG/ML 20 ML VIAL IV ONE
[2017-09-10 13:24] LABS: ALBUMIN 3.9 gm/dl (3.4-5.0); ALT/SGPT 19 U/L (12-78); AST/SGOT 9 U/L (15-37); BLOOD UREA NITROGEN 20 mg/dl (7-18); CALCIUM 9.2 mg/dl (8.5-10.1); CARBON DIOXIDE 27 mmol/L (21-32); CHOLESTEROL 170 mg/dl (0-200); CREATININE 0.98 mg/dl (0.60-1.20); GLUCOSE 95 mg/dl (70-99); POTASSIUM 3.7 mmol/L (3.5-5.1); SODIUM 138 mmol/L (136-145)
[2017-09-10 13:27] LABS: ALKALINE PHOSPHATASE 80 U/L (45-117); LDL CHOLESTEROL CALCULATED 74 mg/dl
== END | disposition home or self-care (01) ==
LOC: C.LABPVFM 07:29
PROVIDERS: ATTEND Family Medicine
DX: M51.36 Other intervertebral disc degeneration, lumbar region (principal); E78.00 Pure hypercholesterolemia, unspecified; I10 Essential (primary) hypertension; I48.0 Paroxysmal atrial fibrillation; K25.3 Acute gastric ulcer without hemorrhage or perforation

== ENCOUNTER 2019-06-09 04:55 | Inpatient (IN) ==
[2019-06-09] MEDS ORDERED: ONDANSETRON INJ 2 MG/ML 2 ML VIAL IV STA (05:16)
[2019-06-09] MEDS: HYDROmorphone INJ 0.5 MG/0.5 ML SYR IV PRN ×3 (05:36→09:45)
[2019-06-09] MEDS ORDERED: IOVERSOL 100ml IV PRN (05:46)
[2019-06-09 05:51] LABS: Basophils # (auto) 0.05 K/uL (0-0.2); Basophils % (auto) 0.4 %; Eosinophils # (auto) 0.17 K/uL (0-0.5); Eosinophils % (auto) 1.3 %; Hemoglobin 16.6 g/dL (12.0-16.0); Immature Granulocytes # (auto) 0.03 K/uL (0.00-0.02); Immature Granulocytes % (auto) 0.2 %; Lymphocytes # (auto) 1.08 K/uL (1.2-3.4); Lymphocytes % (auto) 8.1 %; Mean Corpuscular Hemoglobin 28.5 pg (25-34); Mean Corpuscular Hgb Conc 33.2 g/dL (32-36); Mean Corpuscular Volume 85.8 fL (80-100); Mean Platelet Volume 10.9 fL (7.4-10.4); Monocytes % (auto) 10.5 %; Neutrophils # (auto) 10.62 K/uL (1.4-6.5); Neutrophils % (auto) 79.5 %; Platelet Count 323 K/uL (130-400); RDW Standard Deviation 46.9 fL (36.4-46.3); Red Blood Count 5.83 M/uL (4.2-5.4); White Blood Count 13.35 K/uL (4.8-10.8)
[2019-06-09 05:55] LABS: iSTAT Creatinine 0.9 mg/dl (0.6-1.3); iSTAT Hemoglobin 17.3 g/dl (12.0-16.0); iSTAT Ionized Calcium 1.15 mmol/l (1.12-1.32); iSTAT Potassium 3.4 mmol/L (3.3-5.0)
[2019-06-09 06:15] LABS: Alanine Aminotransferase 21 U/L (12-78); Albumin Level 3.8 gm/dl (3.4-5.0); Aspartate Aminotransferase 12 U/L (15-37); BUN Creatinine Ratio 16.5 (10-20); Blood Urea Nitrogen 17 mg/dl (7-18); Calcium 9.8 mg/dl (8.5-10.1); Carbon Dioxide 28 mmol/L (21-32); Chloride 101 mmol/L (98-107); Est GFR (African American) 64.9; Glucose 108 mg/dl (70-99); Lipase 55 U/L (73-393); Potassium 3.4 mmol/L (3.5-5.1); Sodium 137 mmol/L (136-145)
[2019-06-09 06:18] LABS: Alkaline Phosphatase 82 U/L (45-117); Bilirubin,Total 1.3 mg/dl (0.2-1); Globulin 3.8 gm/dl (2.5-4.0); Total Protein 7.6 gm/dl (6.4-8.2)
--- NOTE | 2019-06-09 07:25 | CT Scan Report ---
ABDOMEN AND PELVIS CT WITH IV CONTRAST CT DOSE: 1011.38 mGy.cm HISTORY: Acute left hip/groin pain Pt c/o left sided groin pain TECHNIQUE: Multiaxial CT images of the abdomen and pelvis were performed following the IV administrat ion of 93 cc of Optiray 320, A dose lowering technique was utilized adhering to the principles of AL LOLA. COMPARISON STUDY: Left thigh soft tissue ultrasound 03/22/2019, MRI of the pelvis 09/03/2013 FINDINGS: Linear subsegmental bibasilar atelectasis/scarring. Evaluation of the lung bases limited secondary to respiratory motion artifact. No pneumatosis or pneumoperitoneum identified. There is fusiform dilati on of the imaged aortic root, 4.4 x 4.4 cm. Coronary arterial calcifications are noted. Heart is uppe r limits of normal in size. Upper abdomen structures are suboptimally evaluated secondary to respirat ory motion artifact. Within the limitations of the exam, the spleen, adrenal glands and gallbladder a ppear unremarkable. Moderate generalized pancreatic atrophy. Unremarkable appearance of the liver. Multiple subcentimeter bilateral renal hypodensities suggest probable cysts. 2.7 cm renal sinus cyst of the inferior pole left kidney. No renal or ureteral calculi or obstructive uropathy. There is part ial distention of the urinary bladder. Hysterectomy. No adnexal mass lesions. Mild to moderate calcif ied plaque of the aorta without aneurysm. Unremarkable IVC. No adenopathy. Large hiatal hernia. There is no bowel obstruction or bowel wall thickening. Extensive colonic diverticulosis without acute div erticulitis. Terminal ileum is unremarkable. The appendix appears surgically absent. No ascites or me senteric inflammation. Left hip total joint arthroplasty. Streak artifact from the arthroplasty device limits evaluation of the adjacent tissues. Moderate right hip osteoarthritis. Severe levoscoliosis of the lumbar spine wit h multilevel advanced degeneration. No acute fracture identified. No evidence of hardware complicatio n. Small collection adjacent to the greater trochanter of the left proximal femur measures 3.1 x 1.7 cm image 390 series 3 suggestive of a small seroma. Additionally, there is mild to moderate asymmetri c prominence of the left iliacus muscle on image 334 series 3 with minimal adjacent stranding. IMPRESSION: 1. Left hip total joint arthroplasty. Streak artifact from the arthroplasty limits evaluation of the adjacent tissues. No acute fracture or evidence of hardware complication. There is however asymmetric prominence of the left iliacus muscle suggestive of a probable small intramuscular hematoma. This fi nding was called/faxed to the emergency department at time of dictation. 2. No acute intra-abdominal or intrapelvic abnormality. 3. Severe colonic diverticulosis without acute diverticulitis. 4. Large hiatal hernia. 5. Fusiform dilation of the aortic root, 4.4 x 4.4 cm. 6. Additional findings as above. ACT 112: Negative or not required by law. The above report was generated using voice recognition software. It may contain grammatical, syntax o r spelling errors. Electronically signed by: Alonzo Arevalo M.D. 06/09/2019 7:24 AM
[2019-06-09] MEDS ORDERED: cefTRIAXone SODIUM 2,000 MG/70 ML BAG IV STA (07:41)
[2019-06-09] MEDS ORDERED: VANCOMYCIN HCL 1,000 MG/270 ML BAG IV STA (07:43)
[2019-06-09] MEDS ORDERED: VANCOMYCIN CONSULT ACTIVE PRN (07:43)
--- NOTE | 2019-06-09 07:49 | Ultrasound Report ---
US extremity non-vascular ltd HISTORY: 69 years-old Female Pt c/o left leg pain hx of hematoma acute pain of the left inguinal reg ion COMPARISON: CT abdomen and pelvis of same day, ultrasound 03/22/2019 TECHNIQUE: Multiple real-time sonographic images of the left inguinal tissues were obtained assessing grayscale appearance and color flow. FINDINGS: Within the area of clinical concern there is a mildly complex hypoechoic collection measuring 4.9 x 5 .7 x 1.8 cm which appears to be located within the iliacus muscle, deep to the femoral vessels. On pr ior study from 03/14/2019, this collection measured 3.9 x 2.5 x 1.2 cm and on the January exam beatriz ured up to 9.3 cm. IMPRESSION: Mildly increased size of the complex hypoechoic collection of the proximal left thigh sug gestive of an intramuscular hematoma of the iliacus muscle. ACT 112: Negative or not required by law. The above report was generated using voice recognition software. It may contain grammatical, syntax o r spelling errors. Electronically signed by: Alonzo Arevalo M.D. 06/09/2019 7:48 AM
--- NOTE | 2019-06-09 08:16 | History & Physical Report ---
Date of Service June 09, 2019 Assessment & Plan (1) Psoas hematoma, left, secondary to anticoagulant therapy: Will admit to medical with tele due to history of A. fib Consulted surgery and cardiology. Patient states to not have been in a. fib for past 7 year, but patient can silently be in A. fib. will hold eliquis for now. Will place on cardac montior. Patient may need to have eliquis held for an extended period of time. Given her age and sex though her CHADSVASC score is 3. will discuss case with cardiology. (2) Leukocytosis: Patient currently with WBC elevation, however no other signs of infection. Antibiotics ordered prior to admission by other provider in ER. No cultures were drawn prior to ANTIBIOTICS ADMINISTRATION. Order procalcitonin. Doubt underlying infection as patient has no other signs of SIRS. (3) Hypertension: resume home medications (4) Paroxysmal atrial fibrillation: resume home meds (5) Hypercholesterolemia: may need to switch to atorvastatin due to diltiazem interaction History of Present Illness Chief Complaint: Left groin pain Primary Care Provider: Amrik Martinez MD Patient with history of paroxysmal atrial fibrillation, had an injury on August of 2018, and multiple ecchymosis from a fall. In december she noticed L groin pain and was found to have a hematoma diagnosed via ultrasound in January. It was monitored and treated conservatively by Surgery. It decreased in size and was improving on repeat US in February. However yesterday pain in the left groin returned. She did not notice an ecchymosis or swelling in the area. Patient also denies any fever, chills, nausea vomiting, sweats. Patient reports she was doing some house cleaning but did not have any trauma. She recently switched her anticoagulant from xarelto to eliquis as per cardiology for Atrial fibrillation. Allergies Allergy/AdvReac Type Severity Reaction Status Date / Time Penicillins Allergy Intermediate UPSET Verified 06/09/19 06:11 STOMACH - CAN TOLERATE IF NEEDED Sulfa (Sulfonamide Allergy Intermediate RASH/HIVES Verified 06/09/19 06:11 Antibiotics) aspirin Allergy Unknown Unknown Verified 06/09/19 06:11 NSAIDS (Non-Steroidal Allergy Unknown Unknown Verified 06/09/19 06:11 Anti-Inflamma latex AdvReac Mild POWDER IN Verified 06/09/19 06:11 LATEX GLOVES-->ITCHING, SENSITIVITY NOT ALLERGY codeine AdvReac Unknown PROJECTILE Verified 06/09/19 06:11 VOMITING,HEADACHE Home Medications Home Medications Medication Instructions Recorded Confirmed Type calcium carbonate [Calcium 600] 600 mg PO BIDM 08/06/18 06/09/19 History cholecalciferol (vitamin D3) 5,000 unit PO QAM 08/06/18 06/09/19 History [Vitamin D3] coenzyme Q10 [CoQ-10] 200 mg PO QAM 08/06/18 06/09/19 History diltiazem HCl 120 mg PO HS 08/06/18 06/09/19 History flecainide 50 mg PO HS 08/06/18 06/09/19 History omeprazole 40 mg PO QAM 08/06/18 06/09/19 History simvastatin 20 mg PO HS 08/06/18 06/09/19 History magnesium oxide 400 mg PO BID 08/17/18 06/09/19 History loratadine 10 mg tablet 10 mg PO PM PRN tab 11/05/18 06/09/19 History diltiazem HCl 240 mg 240 mg PO QAM #90 cap 12/25/18 06/09/19 Rx capsule,extended release 24 hr spironolactone 25 mg tablet 25 mg PO QAM #90 tab 04/19/19 06/09/19 Rx apixaban 5 mg tablet 5 mg PO BID #60 tab 04/27/19 06/09/19 Rx flecainide 100 mg tablet 100 mg PO QAM #90 tab 05/06/19 06/09/19 Rx losartan 50 mg tablet 50 mg PO QAM #90 tab 05/31/19 06/09/19 Rx hydrochlorothiazide 25 mg PO DAILY 06/09/19 06/09/19 History Past Med/Surg History Medical History Atrial fibrillation Chronic reflux esophagitis (Acute) GERD (gastroesophageal reflux disease) Hypercholesterolemia (Acute) Hyperlipidemia Hypertension Migraine HX OF Osteoarthritis Paroxysmal atrial fibrillation (Acute) Pulmonary embolism OVER 20 YEARS AGO (CAUSED BY HORMONE REPLACEMENT THERAPY) Scoliosis Stomach ulcer Temporomandibular joint disorder Surgical History History of adenoidectomy History of bladder surgery History of dilatation and curettage History of esophagogastroduodenoscopy (EGD) History of hernia repair History of herniorrhaphy History of hysterectomy History of incision and drainage Of Skin Abscess History of knee surgery History of laparoscopy History of tonsillectomy History of tooth extraction History of total abdominal hysterectomy History of total hip arthroplasty LEFT Family History Father Atrial fibrillation COPD (chronic obstructive pulmonary disease) Mother Coronary heart disease Hx of CABG Grandfather (Maternal) Cerebral hemorrhage Sister Atrial fibrillation Leaky heart valve Celiac disease Social History Preferred Language: Czech Communication Ability: Effective Cycle Consultant Required: No Beliefs That Will Affect Care: None marital status: Current Living Situation: Spouse current occupational status: retired Other Information That Helps Us Care for You: No Feels Safe at Home: Yes Safety Concerns: Feels Safe At This Time Smoking Status: Never smoker Second Hand Exposure: Yes ( A CHILD) ; Hx Alcohol Use: Yes Alcohol type: wine Alcohol Intake Frequency: Holidays/Special Occasions Hx Substance Use: No Dental Care, Regularly: Yes Physical Activity Frequency: Does not Exercise Physical Activity Frequency Comment: Due to hematoma Seatbelt Use: always Review of Systems Constitutional: no sweats, no malaise and no weight loss Eyes: no diplopia and no decreased night vision Ear, Nose, Mouth, Throat: no ear trauma and no hyperacusis Respiratory: no change in sputum and no hemoptysis Cardiovascular: no chest pain and no chest pain with activity Gastrointestinal: no bloating Genitourinary: no urinary frequency Musculoskeletal: no radicular pain Integumentary: no rash Neurologic: no falls Psychiatric: no behavioral changes Physical Exam Constitutional: well developed and well nourished Eyes: PERRL, conjunctivae normal, anicteric sclerae ENMT: external ear and nose normal, oropharynx normal Neck: trachea midline, no thyromegaly Respiratory: normal respiratory effort, lungs clear to auscultation Cardiovascular: RRR, no murmur, no edema Gastrointestinal (Abdomen): normal bowel sounds, soft, nontender, no hepatosplenomegaly Musculoskeletal: no cyanosis or clubbing, extremities motor strength 5/5 Neurologic: normal touch/pain/proprioception Psychiatric: A+Ox3, euthymic affect Results & Data Vital Signs (Past 12 Hours) Vital Signs Temp Pulse Pulse Resp BP BP Pulse Ox 06/09/19 07:43 73 20 128/66 91 06/09/19 06:39 68 16 134/84 96 06/09/19 04:57 36.5 C 93 H 16 152/86 H 93 PG Care Time/CCT Total # of Minutes Spent Total Time Spent with Patient: Total time spent is greater than 50% in coordination of care (as documented) at patient's floor/unit and/or counseling patient:
[2019-06-09] MEDS ORDERED: LORATADINE 10 MG TAB PO PRN (08:56)
[2019-06-09 09:23] LABS: Appearance Urine Clear (Clear); Bilirubin Urine Negative (Negative); Blood Urine Negative (Negative); Color Urine Yellow; Glucose Urine UA Negative (Negative); Ketones Urine Negative (Negative); Leukocyte Esterase Urine Negative (Negative); Nitrite Urine Negative (Negative); Protein Urine Negative (Negative); Specific Gravity Urine > 1.045 (1.000-1.030); Urobilinogen Urine Negative (Negative); pH Urine 7.5 (4.5-7.5)
--- NOTE | 2019-06-09 09:23 | Surgery Consultation ---
Date of Consultation June 09, 2019 Assessment & Plan (1) Psoas hematoma, left, secondary to anticoagulant therapy: Hematoma slightly enlarged compared to Oct. Discussed with Dr. Shore, would continue empiric antibiotics. May need to hold anticoagulants for extended time, ? up to 6 months. pt seen. had been doing well with no pain until recently. pain with LE movement/ambulation. hematoma only slightly larger. Unclear to me why this small increase in size would create new pain unless the collection has become infected. pt now with leukocytosis. ? infected hematoma. will start antibiotics. not in an area where we could surgically drain. will consult Ortho to make sure left hip hardware not involved/infected as the source of the pain/leukocytosis. pt requesting Roque/Iman. Could consider seeing if IR could aspirate some fluid/tissue for culture/gram stain. May need to stop anticoagulation for prolonged time until hematoma resolves. Will follow along. History of Present Illness History of Present Illness 69 y/o female with left groin hematoma in Jan 2019 while on Xarelto and was crawling in her camper. Pain improved but never resolved and increased yesterday afternoon while cleaning out her filing cabinet. In the interim she had been changed to Eliquis, she had PT, and had seen Dr. Shore in Oct when hematoma was smaller on U/S. Allergies Allergy/AdvReac Type Severity Reaction Status Date / Time Penicillins Allergy Intermediate UPSET Verified 06/09/19 06:11 STOMACH - CAN TOLERATE IF NEEDED Sulfa (Sulfonamide Allergy Intermediate RASH/HIVES Verified 06/09/19 06:11 Antibiotics) aspirin Allergy Unknown Unknown Verified 06/09/19 06:11 NSAIDS (Non-Steroidal Allergy Unknown Unknown Verified 06/09/19 06:11 Anti-Inflamma latex AdvReac Mild POWDER IN Verified 06/09/19 06:11 LATEX GLOVES-->ITCHING, SENSITIVITY NOT ALLERGY codeine AdvReac Unknown PROJECTILE Verified 06/09/19 06:11 VOMITING,HEADACHE Home Medications Home Medications Medication Instructions Recorded Confirmed Type calcium carbonate [Calcium 600] 600 mg PO BIDM 08/06/18 06/09/19 History cholecalciferol (vitamin D3) 5,000 unit PO QAM 08/06/18 06/09/19 History [Vitamin D3] coenzyme Q10 [CoQ-10] 200 mg PO QAM 08/06/18 06/09/19 History diltiazem HCl 120 mg PO HS 08/06/18 06/09/19 History flecainide 50 mg PO HS 08/06/18 06/09/19 History omeprazole 40 mg PO QAM 08/06/18 06/09/19 History simvastatin 20 mg PO HS 08/06/18 06/09/19 History magnesium oxide 400 mg PO BID 08/17/18 06/09/19 History loratadine 10 mg tablet 10 mg PO PM PRN tab 11/05/18 06/09/19 History diltiazem HCl 240 mg 240 mg PO QAM #90 cap 12/25/18 06/09/19 Rx capsule,extended release 24 hr spironolactone 25 mg tablet 25 mg PO QAM #90 tab 04/19/19 06/09/19 Rx apixaban 5 mg tablet 5 mg PO BID #60 tab 04/27/19 06/09/19 Rx flecainide 100 mg tablet 100 mg PO QAM #90 tab 05/06/19 06/09/19 Rx losartan 50 mg tablet 50 mg PO QAM #90 tab 05/31/19 06/09/19 Rx hydrochlorothiazide 25 mg PO DAILY 06/09/19 06/09/19 History Patient History Medical History Atrial fibrillation Chronic reflux esophagitis (Acute) GERD (gastroesophageal reflux disease) Hypercholesterolemia (Acute) Hyperlipidemia Hypertension Migraine HX OF Osteoarthritis Paroxysmal atrial fibrillation (Acute) Pulmonary embolism OVER 20 YEARS AGO (CAUSED BY HORMONE REPLACEMENT THERAPY) Scoliosis Stomach ulcer Temporomandibular joint disorder Surgical History History of adenoidectomy History of bladder surgery History of dilatation and curettage History of esophagogastroduodenoscopy (EGD) History of hernia repair History of herniorrhaphy History of hysterectomy History of incision and drainage Of Skin Abscess History of knee surgery History of laparoscopy History of tonsillectomy History of tooth extraction History of total abdominal hysterectomy History of total hip arthroplasty LEFT Family History Father Atrial fibrillation COPD (chronic obstructive pulmonary disease) Mother Coronary heart disease Hx of CABG Grandfather (Maternal) Cerebral hemorrhage Sister Atrial fibrillation Leaky heart valve Celiac disease Social History Preferred Language: Estonian Communication Ability: Effective Sprinkler Tender Required: No Beliefs That Will Affect Care: None marital status: Current Living Situation: Spouse current occupational status: retired Other Information That Helps Us Care for You: No Feels Safe at Home: Yes Safety Concerns: Feels Safe At This Time Smoking Status: Never smoker Second Hand Exposure: Yes ( A CHILD) ; Hx Alcohol Use: Yes Alcohol type: wine Alcohol Intake Frequency: Holidays/Special Occasions Hx Substance Use: No Dental Care, Regularly: Yes Physical Activity Frequency: Does not Exercise Physical Activity Frequency Comment: Due to hematoma Seatbelt Use: always Review of Systems Constitutional: no fever and no chills Physical Exam Constitutional: WD/WN, vitals as above Musculoskeletal: Hip: no ecchymosis and normal ROM of hip (pain with internal rotation) Results & Data Vital Signs (Past 12 Hours) Vital Signs Temp Pulse Pulse Resp BP BP Pulse Ox 06/09/19 09:03 77 17 131/65 92 06/09/19 07:43 73 20 128/66 91 06/09/19 06:39 68 16 134/84 96 06/09/19 04:57 36.5 C 93 H 16 152/86 H 93 PG Care Time/CCT Total # of Minutes Spent Total Time Spent with Patient: Total time spent is greater than 50% in coordination of care (as documented) at patient's floor/unit and/or counseling patient:
[2019-06-09] MEDS ORDERED: PATIENT'S HEIGHT AND/OR WEIGHT NEEDED SCH (11:00)
[2019-06-09] MEDS: CHOLECALCIFEROL 1,000 UNITS TAB PO SCH (12:16)
--- NOTE | 2019-06-09 13:20 | Cardiology Consultation ---
Date of Consultation June 09, 2019 Assessment & Plan (1) Psoas hematoma, left, secondary to anticoagulant therapy: Hematoma: This hematoma occurred with what sounds like an injury in December 2018 and has remained, it appears that there was some resolution and now worsening. It could be a rebleed or some other problem such as infection. I agree with withholding anticoagulation for now. (2) Paroxysmal atrial fibrillation: Paroxysmal atrial fibrillation: In the past she has been aware of her atrial arrhythmia, however she could have asymptomatic episodes. If we are going withhold anticoagulation for a long period of time we might want to consider a loop recorder implantation, that way we can be confident as to whether she has atrial fibrillation or not. Since her [id number] score is relatively low (it is 3 by my evaluation, one-point for age, female sex and hypertension) it may not be unreasonable to keep her off of anticoagulation if we are confident she does not have atrial fibrillation. Based on the [id number] score her stroke risk is 3.2 %/year. (3) Anticoagulant long-term use: Anticoagulation: I had switched her to Eliquis hoping that this would have a lower bleeding risk than Xarelto, if this turns out to be a bleed then we may need to consider not using anticoagulant as noted above. For now I agree with withholding it until we are confident as to whether this is a rebleed or some other issue. (4) Hypertension: Hypertension: She does have a history of hypertension, blood pressure was elevated on presentation and has been at other times as well although for the most part it is reasonably well controlled. I have not adjusted her medications. History of Present Illness Reason for Consultation: Psoas bleed Attending Physician: Carlos Sagastume History of Present Illness This is a 69-year-old woman who has a history of atrial fibrillation dating back to about 2006. The first documented episode was in January of 2007 during a hospitalization for an infected hip prosthesis. Subsequently she has continued to have intermittent episodes of atrial fibrillation that have always self terminated and lasted from about one half hour up to 12 hours. She was admitted to [facility] on May 06, 2010 with an episode that lasted about 12 hours and was quite rapid, her heart rate was documented to be about 176 beats per minute and she had some ST-T abnormalities. She also gets chest tightness occasionally with the palpitations which could represent angina although a stress echo (February 15, 2010) was negative for ischemia. She was treated with increasing her rate control medications, and addition of flecainide to try to minimize the frequency of the episodes, and anticoagulation initially with aspirin as outlined below and later with anticoagulants. She was hospitalized with chest discomfort, that appeared to be due to esophageal spasm. This appeared to be associated with a vagal event resulting in bradycardia, endoscopy was unrevealing but a barium swallow did demonstrate spasm. We therefore treated this with diltiazem, on 180 mg daily she had improvement but did have recurrence therefore the dose was increased to 240 mg daily. She also has had hypertension, both here and at home when she takes it. I did add lisinopril 5 mg daily on 06/10/2014 and that has helped with her blood pressure. She developed a dry cough around that time possibly due to her BENJAMIN- inhibitor. We therefore switched this to losartan which seems to be helping with both her blood pressure and her cough. I had initially started flecainide 50 mg twice a day for control of her atrial fibrillation but increased it to 100 milligrams twice a day, she felt she didn't tolerate it and therefore dropped it back to 50 b.i.d. but then with recurrent symptoms she gradually increased the dose to 100 mg in the morning and 50 mg a evening. We discussed anticoagulation but she had preferred to use aspirin, in part because of the high cost of the newer agents. With development of gastric ulcers that was not a option, therefore we had planned on starting Eliquis 5 mg twice daily. That was prescribed but she did not start it due to cost and concern about bleeding. She had a number of endoscopies subsequently and apparently still has a nonhealed ulcer. She was also worried about the risk of bleeding with her ulcers, and additionally she needs back injections every 9-12 months and was concerned about the risk of bleeding at those times. She therefore did not start the medication, however ultimately she did take Xarelto 20 mg daily starting November 05, 2017. She also has hypercholesterolemia and did agree to starting simvastatin, this was started 06/10/2014. She was having dyspnea on exertion and dependent edema when I saw her February 06, 2018, therefore I arranged a dobutamine stress echo which was done March 08, 2018 and was negative for ischemia and her left ventricular function was normal with normal wall motion and mild left ventricular hypertrophy. This continued but did not worsen. She has had some difficulty with bleeding over the last year, it started with a left leg hematoma from an injury in the spring 2018 which per her description ended up with cellulitis, that ultimately resolved. Then more recently in December of 2018 pulled a muscle in her left leg and ended up with a large groin hematoma, that took a long time but had mostly resolved symptomatically by April 2019. She has not had any palpitations recently to suggest recurrent AF. She presents now with recurrent pain in her left groin since June 08, 2019. She came into the emergency room and a vascular ultrasound on June 09, 2019 showed a complex hypoechoic collection located in the iliopsoas muscle, by prior studies the collection was a little bit smaller on March 14, 2019 ultrasound but larger on a January 2019 ultrasound. She has been on Eliquis 5 mg twice a day for treatment of her paroxysmal atrial fibrillation, she took her last dose on the evening of June 08, 2019. She also has an elevated white count for unclear reasons. By symptoms she has no recurrence of her atrial fibrillation, historically she has been quite aware of when she has it but we have not had long-term monitoring recently to see whether she has asymptomatic episodes. She is now on telemetry. Allergies Allergy/AdvReac Type Severity Reaction Status Date / Time Penicillins Allergy Intermediate UPSET Verified 06/09/19 06:11 STOMACH - CAN TOLERATE IF NEEDED Sulfa (Sulfonamide Allergy Intermediate RASH/HIVES Verified 06/09/19 06:11 Antibiotics) aspirin Allergy Unknown Unknown Verified 06/09/19 06:11 NSAIDS (Non-Steroidal Allergy Unknown Unknown Verified 06/09/19 06:11 Anti-Inflamma latex AdvReac Mild POWDER IN Verified 06/09/19 06:11 LATEX GLOVES-->ITCHING, SENSITIVITY NOT ALLERGY codeine AdvReac Unknown PROJECTILE Verified 06/09/19 06:11 VOMITING,HEADACHE Home Medications Home Medications Medication Instructions Recorded Confirmed Type calcium carbonate [Calcium 600] 600 mg PO BIDM 08/06/18 06/09/19 History cholecalciferol (vitamin D3) 5,000 unit PO QAM 08/06/18 06/09/19 History [Vitamin D3] coenzyme Q10 [CoQ-10] 200 mg PO QAM 08/06/18 06/09/19 History diltiazem HCl 120 mg PO HS 08/06/18 06/09/19 History flecainide 50 mg PO HS 08/06/18 06/09/19 History omeprazole 40 mg PO QAM 08/06/18 06/09/19 History simvastatin 20 mg PO HS 08/06/18 06/09/19 History magnesium oxide 400 mg PO BID 08/17/18 06/09/19 History loratadine 10 mg tablet 10 mg PO PM PRN tab 11/05/18 06/09/19 History diltiazem HCl 240 mg 240 mg PO QAM #90 cap 12/25/18 06/09/19 Rx capsule,extended release 24 hr spironolactone 25 mg tablet 25 mg PO QAM #90 tab 04/19/19 06/09/19 Rx apixaban 5 mg tablet 5 mg PO BID #60 tab 04/27/19 06/09/19 Rx flecainide 100 mg tablet 100 mg PO QAM #90 tab 05/06/19 06/09/19 Rx losartan 50 mg tablet 50 mg PO QAM #90 tab 05/31/19 06/09/19 Rx hydrochlorothiazide 25 mg PO DAILY 06/09/19 06/09/19 History Patient History Medical History Atrial fibrillation Chronic reflux esophagitis (Acute) GERD (gastroesophageal reflux disease) Hypercholesterolemia (Acute) Hyperlipidemia Hypertension Migraine HX OF Osteoarthritis Paroxysmal atrial fibrillation (Acute) Pulmonary embolism OVER 20 YEARS AGO (CAUSED BY HORMONE REPLACEMENT THERAPY) Scoliosis Stomach ulcer Temporomandibular joint disorder Surgical History History of adenoidectomy History of bladder surgery History of dilatation and curettage History of esophagogastroduodenoscopy (EGD) History of hernia repair History of herniorrhaphy History of hysterectomy History of incision and drainage Of Skin Abscess History of knee surgery History of laparoscopy History of tonsillectomy History of tooth extraction History of total abdominal hysterectomy History of total hip arthroplasty LEFT Family History Father Atrial fibrillation COPD (chronic obstructive pulmonary disease) Mother Coronary heart disease Hx of CABG Grandfather (Maternal) Cerebral hemorrhage Sister Atrial fibrillation Leaky heart valve Celiac disease Social History Preferred Language: Kenyan Communication Ability: Effective Diagnostic Tech Required: No Beliefs That Will Affect Care: None marital status: Current Living Situation: Spouse current occupational status: retired Other Information That Helps Us Care for You: No Feels Safe at Home: Yes Safety Concerns: Feels Safe At This Time Smoking Status: Never smoker Second Hand Exposure: Yes ( A CHILD) ; Hx Alcohol Use: Yes Alcohol type: wine Alcohol Intake Frequency: Holidays/Special Occasions Hx Substance Use: No Dental Care, Regularly: Yes Physical Activity Frequency: Does not Exercise Physical Activity Frequency Comment: Due to hematoma Seatbelt Use: always Review of Systems Review of Systems: All systems reviewed & are unremarkable except as noted in HPI & below Physical Exam Physical Exam: Constitutional: Alert, cooperative and in no distress. HEENT: Unremarkable Neck: No jugular venous distention, carotid pulses are normal and equal bilaterally without bruits. Pulmonary: Clear to auscultation bilaterally. Cardiac: Regular rhythm with no murmur, gallop or rub. Abdomen: Soft, nontender with normal bowel sounds. Extremities: No edema. Distal pulses intact. Neurologic: No focal findings. Gait is steady. Skin: No rash, ecchymoses or petechiae. Results & Data Vital Signs (Past 12 Hours) Vital Signs Temp Pulse Pulse Resp BP BP Pulse Ox 06/09/19 11:32 37.1 C 77 16 119/72 93 06/09/19 09:49 73 16 129/89 91 06/09/19 09:03 77 17 131/65 92 06/09/19 07:43 73 20 128/66 91 06/09/19 06:39 68 16 134/84 96 06/09/19 04:57 36.5 C 93 H 16 152/86 H 93 Laboratory Results Cardiac Enzymes 06/09/19 Range/Units 05:37 AST 12 L (15-37) U/L CBC 06/09/19 Range/Units 05:37 WBC 13.35 H (4.8-10.8) K/uL RBC 5.83 H (4.2-5.4) M/uL Hgb 16.6 H (12.0-16.0) g/dL Hct 50.0 H (37-47) % Plt Count 323 (130-400) K/uL Neut # (Auto) 10.62 H (1.4-6.5) K/uL Lymph # (Auto) 1.08 L (1.2-3.4) K/uL [place] # (Auto) 1.40 H (0.11-0.59) K/uL Eos # (Auto) 0.17 (0-0.5) K/uL Baso # (Auto) 0.05 (0-0.2) K/uL Comprehensive Metabolic Panel 06/09/19 Range/Units 05:37 Sodium 137 (136-145) mmol/L Potassium 3.4 L (3.5-5.1) mmol/L Chloride 101 (98-107) mmol/L Carbon Dioxide 28 (21-32) mmol/L BUN 17 (7-18) mg/dl Creatinine 1.01 (0.6-1.2) mg/dl Glucose 108 H (70-99) mg/dl Calcium 9.8 (8.5-10.1) mg/dl AST 12 L (15-37) U/L ALT 21 (12-78) U/L Alkaline Phosphatase 82 (45-117) U/L Total Protein 7.6 (6.4-8.2) gm/dl Albumin 3.8 (3.4-5.0) gm/dl Intake and Output 06/08/19 06/09/19 06/09/19 22:59 06:59 14:59 Intake Total 340 / 340 Balance 340 / 340 Intake: IV 340 / 340 VANCOMYCIN HCL 1,000 mg In 270 270 / 270 ml @ 125 mls/hr IV NOW STA Rx#: [id number] ROCEPHIN 2,000 mg In 70 ml @ 70 / 70 140 mls/hr IV NOW STA Rx#: [id number] Other: Weight 0 g 89.9 kg Patient Weight 06/10/19 06:59 Weight 89.9 kg Diagnostic Findings Telemetry: Sinus rhythm, no atrial fibrillation PG Care Time/CCT Total # of Minutes Spent Total Time Spent with Patient: Total time spent is greater than 50% in coordination of care (as documented) at patient's floor/unit and/or counseling patient:
--- NOTE | 2019-06-09 15:02 | Orthopedic Consultation ---
Date of Consultation June 09, 2019 Assessment & Plan (1) Left hip pain: I saw and examined the patient with Dr. Lechuga. We did order a CRP and ESR to be done. We will check those results. If either of those are elevated we did discuss the potential of having radiology aspirating her hip to culture the fluid. However, given her IV antibiotics, the results could be falsely negative. We reviewed her CT of her abdomen and pelvis which was difficult to visualize the left hip due to the metal artifact. We did order a plain x-ray of her left hip. We will review that once it is completed. (2) Leukocytosis: (3) Psoas hematoma, left, secondary to anticoagulant therapy: Supervising Physician Co-Signing Physician Notes I agree with the physicians assistants evaluation note. I also interviewed and examined the patient, as well as reviewed her studies regarding the hip dating back to December. There is a low clinical suspicion for involvement of the hip prosthesis based on her history. Aspiration the hip will provide the best data. If the ESR and CRP are elevated, I recommend contacting radiology for fluoroscopy guided aspiration of the hip. We will continue to follow with these results. History of Present Illness Attending Physician: Carlos Sagastume History of Present Illness Katya is a 69 year old white female who was admitted for a left psoas hematoma early this morning. She says that she woke up this morning with severe pain in her left groin which was similar to the pain she had in December of 2018 when she was rolling on the ground trying to prepare her camper and ended up with a psoas hematoma on the left side. She was treated conservatively by her PCP and last ultrasound showed regression in the size of the hematoma. We were consulted this afternoon due to an WBC count of 13.35 and some concern about the source of her infection coming from her left hip as she had a left DAVID done in [address] Das. She has not had any issues with her hip since then. She has a history of infection into her right hip from 15 years ago which was treated surgically with an I&D. She has not had any problems with her right hip since then. She has received IV antibiotics including Vancomycin and Ceftriaxone since her admission. She denies any weakness, fatigue, fever, chills, weight loss or weight gain. She also denies any night sweats. No other aches or pains. Allergies Allergy/AdvReac Type Severity Reaction Status Date / Time Penicillins Allergy Intermediate UPSET Verified 06/09/19 06:11 STOMACH - CAN TOLERATE IF NEEDED Sulfa (Sulfonamide Allergy Intermediate RASH/HIVES Verified 06/09/19 06:11 Antibiotics) aspirin Allergy Unknown Unknown Verified 06/09/19 06:11 NSAIDS (Non-Steroidal Allergy Unknown Unknown Verified 06/09/19 06:11 Anti-Inflamma latex AdvReac Mild POWDER IN Verified 06/09/19 06:11 LATEX GLOVES-->ITCHING, SENSITIVITY NOT ALLERGY codeine AdvReac Unknown PROJECTILE Verified 06/09/19 06:11 VOMITING,HEADACHE Home Medications Home Medications Medication Instructions Recorded Confirmed Type calcium carbonate [Calcium 600] 600 mg PO BIDM 08/06/18 06/09/19 History cholecalciferol (vitamin D3) 5,000 unit PO QAM 08/06/18 06/09/19 History [Vitamin D3] coenzyme Q10 [CoQ-10] 200 mg PO QAM 08/06/18 06/09/19 History diltiazem HCl 120 mg PO HS 08/06/18 06/09/19 History flecainide 50 mg PO HS 08/06/18 06/09/19 History omeprazole 40 mg PO QAM 08/06/18 06/09/19 History simvastatin 20 mg PO HS 08/06/18 06/09/19 History magnesium oxide 400 mg PO BID 08/17/18 06/09/19 History loratadine 10 mg tablet 10 mg PO PM PRN tab 11/05/18 06/09/19 History diltiazem HCl 240 mg 240 mg PO QAM #90 cap 12/25/18 06/09/19 Rx capsule,extended release 24 hr spironolactone 25 mg tablet 25 mg PO QAM #90 tab 04/19/19 06/09/19 Rx apixaban 5 mg tablet 5 mg PO BID #60 tab 04/27/19 06/09/19 Rx flecainide 100 mg tablet 100 mg PO QAM #90 tab 05/06/19 06/09/19 Rx losartan 50 mg tablet 50 mg PO QAM #90 tab 05/31/19 06/09/19 Rx hydrochlorothiazide 25 mg PO DAILY 06/09/19 06/09/19 History Patient History Medical History Atrial fibrillation Chronic reflux esophagitis (Acute) GERD (gastroesophageal reflux disease) Hypercholesterolemia (Acute) Hyperlipidemia Hypertension Migraine HX OF Osteoarthritis Paroxysmal atrial fibrillation (Acute) Pulmonary embolism OVER 20 YEARS AGO (CAUSED BY HORMONE REPLACEMENT THERAPY) Scoliosis Stomach ulcer Temporomandibular joint disorder Surgical History History of adenoidectomy History of bladder surgery History of dilatation and curettage History of esophagogastroduodenoscopy (EGD) History of hernia repair History of herniorrhaphy History of hysterectomy History of incision and drainage Of Skin Abscess History of knee surgery History of laparoscopy History of tonsillectomy History of tooth extraction History of total abdominal hysterectomy History of total hip arthroplasty LEFT Family History Father Atrial fibrillation COPD (chronic obstructive pulmonary disease) Mother Coronary heart disease Hx of CABG Grandfather (Maternal) Cerebral hemorrhage Sister Atrial fibrillation Leaky heart valve Celiac disease Social History Preferred Language: Georgian Communication Ability: Effective Delinquency Prevention Social Worker Required: No Beliefs That Will Affect Care: None marital status: Current Living Situation: Spouse current occupational status: retired Other Information That Helps Us Care for You: No Feels Safe at Home: Yes Safety Concerns: Feels Safe At This Time Smoking Status: Never smoker Second Hand Exposure: Yes ( A CHILD) ; Hx Alcohol Use: Yes Alcohol type: wine Alcohol Intake Frequency: Holidays/Special Occasions Hx Substance Use: No Dental Care, Regularly: Yes Physical Activity Frequency: Does not Exercise Physical Activity Frequency Comment: Due to hematoma Seatbelt Use: always Review of Systems Review of Systems: All systems reviewed & are unremarkable except as noted in HPI & below Physical Exam Constitutional: WD/WN, vitals as above no acute distress ENMT: external ear and nose normal, oropharynx normal Ears: no hearing impairment Neck: trachea midline, no thyromegaly normal visual inspection and trachea midline Respiratory: normal respiratory effort, lungs clear to auscultation normal respiratory effort; no labored breathing Cardiovascular: Extremities: normal capillary refill; no edema Gastrointestinal (Abdomen): Inspection/Auscultation: abdomen normal to inspection; abdomen not distended Musculoskeletal: no cyanosis or clubbing, extremities motor strength 5/5 Extremities: extremities normal to inspection No pain with hip IR or ER of the left hip. Unable to perform left straight leg raise. Passive hip flexion does illicit mild discomfort. Non-tender to palpation left greater trochanter bursa. Skin: no rashes, warm and dry normal turgor; no rashes and no erythema Skin is normal tone and temperature. Incision over the left hip is well-healed. Psychiatric: A+Ox3, euthymic affect Results & Data Vital Signs (Past 12 Hours) Vital Signs Temp Pulse Pulse Resp BP BP Pulse Ox 06/09/19 11:32 37.1 C 77 16 119/72 93 06/09/19 09:49 73 16 129/89 91 06/09/19 09:03 77 17 131/65 92 06/09/19 07:43 73 20 128/66 91 06/09/19 06:39 68 16 134/84 96 06/09/19 04:57 36.5 C 93 H 16 152/86 H 93 PG Care Time/CCT Total # of Minutes Spent Total Time Spent with Patient: Total time spent is greater than 50% in coordination of care (as documented) at patient's floor/unit and/or counseling patient: Coding Level of Care Code 87379 Initial Inpt Care Lvl 3 Diagnoses Left hip pain M25.552 Leukocytosis D72.829 Psoas hematoma, left, secondary to anticoagulant therapy S30.1XXA
--- NOTE | 2019-06-09 16:31 | XRay Report ---
XR hip LT 2V w pelvis CLINICAL HISTORY: evaluation of hip pain COMPARISON: January 10, 2019 DISCUSSION: There are postsurgical changes of a total left hip arthroplasty. No acute fractures are v isualized. There is an old greater trochanteric avulsion. There is no dislocation IMPRESSION: 1. Postsurgical changes of a total left hip arthroplasty. No acute fractures or dislocations. ACT 112: Negative or not required by law. Electronically signed by: Alexander Nuñez M.D. 06/09/2019 4:30 PM
[2019-06-09] MEDS: CALCIUM CARBONATE 1250MG TAB PO SCH (17:11)
[2019-06-09] MEDS: MAGNESIUM OXIDE 400 MG TAB PO SCH (20:43)
[2019-06-09] MEDS ORDERED: dilTIAZem HCL 120 MG CAPCR PO SCH (21:00)
[2019-06-09] MEDS ORDERED: SIMVASTATIN 20 MG TAB PO SCH (21:00)
[2019-06-09] MEDS ORDERED: FLECAINIDE ACETATE 100 MG TABLET PO SCH (21:00)
[2019-06-10] MEDS: ACETAMINOPHEN 325 MG TAB PO PRN ×3 (00:04→11:26)
[2019-06-10] MEDS ORDERED: CEFAZOLIN 2000MG 2,000 MG/15 ML SYR IV SCH (06:00)
[2019-06-10 06:32] LABS: Basophils # (auto) 0.03 K/uL (0-0.2); Basophils % (auto) 0.4 %; Eosinophils # (auto) 0.27 K/uL (0-0.5); Eosinophils % (auto) 3.3 %; Hematocrit (blood only) 44.7 % (37-47); Hemoglobin 14.9 g/dL (12.0-16.0); Immature Granulocytes # (auto) 0.01 K/uL (0.00-0.02); Immature Granulocytes % (auto) 0.1 %; Lymphocytes # (auto) 1.39 K/uL (1.2-3.4); Lymphocytes % (auto) 16.9 %; Mean Corpuscular Hemoglobin 28.8 pg (25-34); Mean Corpuscular Hgb Conc 33.3 g/dL (32-36); Mean Corpuscular Volume 86.3 fL (80-100); Mean Platelet Volume 10.5 fL (7.4-10.4); Monocytes # (auto) 0.96 K/uL (0.11-0.59); Monocytes % (auto) 11.7 %; Neutrophils # (auto) 5.57 K/uL (1.4-6.5); Neutrophils % (auto) 67.6 %; Platelet Count 260 K/uL (130-400); RDW Coefficient of Variation 15.1 % (11.5-14.5); Red Blood Count 5.18 M/uL (4.2-5.4); White Blood Count 8.23 K/uL (4.8-10.8)
[2019-06-10] MEDS: CALCIUM CARBONATE 1250MG TAB PO SCH ×2 (08:12→16:22)
[2019-06-10] MEDS: CHOLECALCIFEROL 1,000 UNITS TAB PO SCH (08:12)
[2019-06-10] MEDS: MAGNESIUM OXIDE 400 MG TAB PO SCH (08:12)
[2019-06-10] MEDS ORDERED: PANTOprazole 40 MG TAB PO SCH (09:00)
[2019-06-10] MEDS ORDERED: NON-FORMULARY MEDICATION (Coenzyme Q10 [Coq-10] 200 MG) PO SCH (09:00)
[2019-06-10] MEDS ORDERED: dilTIAZem HCL 240 MG CAPCR PO SCH (09:00)
[2019-06-10] MEDS ORDERED: SPIRONOLACTONE 25 MG TAB PO SCH (09:00)
[2019-06-10] MEDS ORDERED: LOSARTAN POTASSIUM 50 MG TAB PO SCH (09:00)
[2019-06-10] MEDS ORDERED: FLECAINIDE ACETATE 100 MG TABLET PO SCH (09:00)
[2019-06-10] MEDS ORDERED: hydroCHLOROthiazide 25 MG TAB PO SCH (09:00)
[2019-06-10] MEDS ORDERED: cefTRIAXone SODIUM 2,000 MG in DEXTROSE 5% 50 ML IV SCH (09:00)
--- NOTE | 2019-06-10 09:14 | Surgery Progress Note ---
Date of Service June 10, 2019 Assessment & Plan (1) Psoas hematoma, left, secondary to anticoagulant therapy: hematoma not in an area where we would drain she is seeing some improvement since starting antibiotics. +elevated ESR and CRP. WBC improved today. will defer to ID and ortho agree with potential aspiration for gram stain/culture will sign off. please call if we can assist. (2) Left hip pain: Subjective pt seen. still having groin pain with movement but improved since admission. no new complaints. Physical Exam Physical Exam: alert. nad abd: soft. mild groin ttp. pain with hip motion Results & Data Vital Signs (Past 12 Hours) Vital Signs Temp Pulse Pulse Resp BP Pulse Ox 06/10/19 07:28 70 06/10/19 07:20 37.1 C 72 18 109/71 95 06/10/19 04:37 74 06/10/19 04:00 36.8 C 70 18 96/56 L 94 06/09/19 23:17 36.9 C 84 19 111/74 93 PG Care Time/CCT Total # of Minutes Spent Total Time Spent with Patient: Total time spent is greater than 50% in coordination of care (as documented) at patient's floor/unit and/or counseling patient:
[2019-06-10 09:19] LABS: Blood Urea Nitrogen 16 mg/dl (7-18); Calcium 8.8 mg/dl (8.5-10.1); Carbon Dioxide 30 mmol/L (21-32); Chloride 104 mmol/L (98-107); Est GFR (African American) 73.6; Est GFR (Non-African American) 63.5; Glucose 92 mg/dl (70-99); Potassium 3.4 mmol/L (3.5-5.1); Sodium 139 mmol/L (136-145)
--- NOTE | 2019-06-10 09:38 | Infectious Disease Consult ---
Date of Consultation June 10, 2019 Assessment & Plan (1) Psoas hematoma, left, secondary to anticoagulant therapy: Her elevated wbc and esr may be due to hematoma, now wbc normal. she is afrebile with negative procalcitonin, agree with holding additional abx at this time, especially if she is to have an aspiration of fluid/hematoma - holding abx will maximize yield of fluid culture. will check blood cultures as well. History of Present Illness Attending Physician: Carlos Sagastume pt admitted with left hip pain. she has known hematoma which is now slightly larger. she had wbc in ER13, now 8. given ctx and vanco in ER, currently on no abx. ESR mildly elevated 48. afebrile since admission. eating breakfast on my exam. denies cp,sob, cough, no n/v/d/abd pain. states hip is sore. surgery came in for eval during my exam. states no surgical indication but now ortho is following and will be discussing with IR for drainage of fluid - unsure if from hip joint or hematoma. no blood cultures obtained. ID consulted to determine if abx appropriate at this time. Allergies Allergy/AdvReac Type Severity Reaction Status Date / Time Penicillins Allergy Intermediate UPSET Verified 06/09/19 06:11 STOMACH - CAN TOLERATE IF NEEDED Sulfa (Sulfonamide Allergy Intermediate RASH/HIVES Verified 06/09/19 06:11 Antibiotics) aspirin Allergy Unknown Unknown Verified 06/09/19 06:11 NSAIDS (Non-Steroidal Allergy Unknown Unknown Verified 06/09/19 06:11 Anti-Inflamma latex AdvReac Mild POWDER IN Verified 06/09/19 06:11 LATEX GLOVES-->ITCHING, SENSITIVITY NOT ALLERGY codeine AdvReac Unknown PROJECTILE Verified 06/09/19 06:11 VOMITING,HEADACHE Home Medications Home Medications Medication Instructions Recorded Confirmed Type calcium carbonate [Calcium 600] 600 mg PO BIDM 08/06/18 06/09/19 History cholecalciferol (vitamin D3) 5,000 unit PO QAM 08/06/18 06/09/19 History [Vitamin D3] coenzyme Q10 [CoQ-10] 200 mg PO QAM 08/06/18 06/09/19 History diltiazem HCl 120 mg PO HS 08/06/18 06/09/19 History flecainide 50 mg PO HS 08/06/18 06/09/19 History omeprazole 40 mg PO QAM 08/06/18 06/09/19 History simvastatin 20 mg PO HS 08/06/18 06/09/19 History magnesium oxide 400 mg PO BID 08/17/18 06/09/19 History loratadine 10 mg tablet 10 mg PO PM PRN tab 11/05/18 06/09/19 History diltiazem HCl 240 mg 240 mg PO QAM #90 cap 12/25/18 06/09/19 Rx capsule,extended release 24 hr spironolactone 25 mg tablet 25 mg PO QAM #90 tab 04/19/19 06/09/19 Rx apixaban 5 mg tablet 5 mg PO BID #60 tab 04/27/19 06/09/19 Rx flecainide 100 mg tablet 100 mg PO QAM #90 tab 05/06/19 06/09/19 Rx losartan 50 mg tablet 50 mg PO QAM #90 tab 05/31/19 06/09/19 Rx hydrochlorothiazide 25 mg PO DAILY 06/09/19 06/09/19 History Patient History Medical History Atrial fibrillation Chronic reflux esophagitis (Acute) GERD (gastroesophageal reflux disease) Hypercholesterolemia (Acute) Hyperlipidemia Hypertension Migraine HX OF Osteoarthritis Paroxysmal atrial fibrillation (Acute) Pulmonary embolism OVER 20 YEARS AGO (CAUSED BY HORMONE REPLACEMENT THERAPY) Scoliosis Stomach ulcer Temporomandibular joint disorder Surgical History History of adenoidectomy History of bladder surgery History of dilatation and curettage History of esophagogastroduodenoscopy (EGD) History of hernia repair History of herniorrhaphy History of hysterectomy History of incision and drainage Of Skin Abscess History of knee surgery History of laparoscopy History of tonsillectomy History of tooth extraction History of total abdominal hysterectomy History of total hip arthroplasty LEFT Family History Father Atrial fibrillation COPD (chronic obstructive pulmonary disease) Mother Coronary heart disease Hx of CABG Grandfather (Maternal) Cerebral hemorrhage Sister Atrial fibrillation Leaky heart valve Celiac disease Social History Preferred Language: [place] Communication Ability: Effective Wheel Inspector Required: No Beliefs That Will Affect Care: None marital status: Current Living Situation: Spouse current occupational status: retired Other Information That Helps Us Care for You: No Feels Safe at Home: Yes Safety Concerns: Feels Safe At This Time Smoking Status: Never smoker Second Hand Exposure: Yes ( A CHILD) ; Hx Alcohol Use: Yes Alcohol type: wine Alcohol Intake Frequency: Holidays/Special Occasions Hx Substance Use: No Dental Care, Regularly: Yes Physical Activity Frequency: Does not Exercise Physical Activity Frequency Comment: Due to hematoma Seatbelt Use: always Review of Systems Review of Systems: All systems reviewed & are unremarkable except as noted in HPI & below Physical Exam Constitutional: WD/WN, vitals as above Eyes: PERRL, conjunctivae normal, anicteric sclerae ENMT: external ear and nose normal, oropharynx normal Neck: normal visual inspection Respiratory: normal respiratory effort, lungs clear to auscultation Cardiovascular: RRR, no murmur, no edema Gastrointestinal (Abdomen): normal bowel sounds, soft, nontender, no hepatosplenomegaly Musculoskeletal: no cyanosis or clubbing, extremities motor strength 5/5 Skin: no rashes, warm and dry Psychiatric: A+Ox3, euthymic affect Results & Data Vital Signs (Past 12 Hours) Vital Signs Temp Pulse Pulse Resp BP Pulse Ox 06/10/19 07:28 70 06/10/19 07:20 37.1 C 72 18 109/71 95 06/10/19 04:37 74 06/10/19 04:00 36.8 C 70 18 96/56 L 94 06/09/19 23:17 36.9 C 84 19 111/74 93 PG Care Time/CCT Total # of Minutes Spent Total Time Spent with Patient: Total time spent is greater than 50% in coordination of care (as documented) at patient's floor/unit and/or counseling patient:
--- NOTE | 2019-06-10 14:58 | Cardiology Progress Note ---
Date of Service June 10, 2019 Assessment & Plan (1) Psoas hematoma, left, secondary to anticoagulant therapy: Hematoma: This hematoma occurred with what sounds like an injury in December 2018 and has remained, it appears that there was some resolution and now worsening. It could be a rebleed or some other problem such as infection. I agree with withholding anticoagulation for now. It does not appear to be infected but I believe the final determination has yet to be made. (2) Paroxysmal atrial fibrillation: Paroxysmal atrial fibrillation: In the past she has been aware of her atrial arrhythmia, however she could have asymptomatic episodes. If we are going withhold anticoagulation for a long period of time we might want to consider a loop recorder implantation, that way we can be confident as to whether she has atrial fibrillation or not. Since her [id number] score is relatively low (it is 3 by my evaluation, one-point for age, female sex and hypertension) it may not be unreasonable to keep her off of anticoagulation if we are confident she does not have atrial fibrillation. Based on the [id number] score her stroke risk is 3.2 %/year. She is agreeable to a loop recorder. I discussed the indications, procedure, risks and alternatives with her and her and she agrees to proceed. Consent obtained. We will not be using sedation. (3) Anticoagulant long-term use: Anticoagulation: I had switched her to Eliquis hoping that this would have a lower bleeding risk than Xarelto, we may want to consider not using anticoagulant as noted above. For now I agree with stopping it and we will monitor her for atrial fibrillation using the implanted recorder.. (4) Hypertension: Hypertension: She does have a history of hypertension, blood pressure was elevated on presentation and has been at other times as well although for the most part it is reasonably well controlled. I have not adjusted her medications. Subjective She is feeling better today, she has considerably less pain Physical Exam Physical Exam: Constitutional: Alert, cooperative and in no distress. HEENT: Unremarkable Neck: No jugular venous distention, carotid pulses are normal and equal bilaterally without bruits. Pulmonary: Clear to auscultation bilaterally. Cardiac: Regular rhythm with no murmur, gallop or rub. Abdomen: Soft, nontender with normal bowel sounds. Extremities: No edema. Distal pulses intact. Neurologic: No focal findings. Gait is steady. Skin: No rash, ecchymoses or petechiae. Results & Data Vital Signs (Past 12 Hours) Vital Signs Temp Pulse Pulse Resp BP Pulse Ox 06/10/19 14:46 64 17 137/87 94 06/10/19 11:25 36.8 C 63 18 133/76 91 06/10/19 07:28 70 06/10/19 07:20 37.1 C 72 18 109/71 95 06/10/19 04:37 74 06/10/19 04:00 36.8 C 70 18 96/56 L 94 Laboratory Results CBC 06/10/19 Range/Units 06:00 WBC 8.23 (4.8-10.8) K/uL RBC 5.18 (4.2-5.4) M/uL Hgb 14.9 (12.0-16.0) g/dL Hct 44.7 (37-47) % Plt Count 260 (130-400) K/uL Neut # (Auto) 5.57 (1.4-6.5) K/uL Lymph # (Auto) 1.39 (1.2-3.4) K/uL [place] # (Auto) 0.96 H (0.11-0.59) K/uL Eos # (Auto) 0.27 (0-0.5) K/uL Baso # (Auto) 0.03 (0-0.2) K/uL Comprehensive Metabolic Panel 06/10/19 Range/Units 05:57 Sodium 139 (136-145) mmol/L Potassium 3.4 L (3.5-5.1) mmol/L Chloride 104 (98-107) mmol/L Carbon Dioxide 30 (21-32) mmol/L BUN 16 (7-18) mg/dl Creatinine 0.91 (0.6-1.2) mg/dl Glucose 92 (70-99) mg/dl Calcium 8.8 (8.5-10.1) mg/dl Intake and Output 06/10/19 06/10/19 06/10/19 06:59 14:59 22:59 Intake Total 300 / 1340 665 / 665 Balance 300 / 1340 665 / 665 Intake: Oral 300 / 1000 665 / 665 Other: Weight 89.2 kg Diagnostic Findings Telemetry: Sinus rhythm rate 60 to 80 bpm, no atrial fibrillation PG Care Time/CCT Total # of Minutes Spent Total Time Spent with Patient: Total time spent is greater than 50% in coordination of care (as documented) at patient's floor/unit and/or counseling patient:
[2019-06-10] MEDS ORDERED: LACTATED RINGER'S 1,000 ML IV SCH (15:00)
[2019-06-10] MEDS ORDERED: LIDOCAINE HCL 1% 20 ML VIAL ONE (15:03)
[2019-06-10] MEDS ORDERED: ACETAMINOPHEN 325 MG TAB PO PRN (15:31)
--- NOTE | 2019-06-10 15:31 | Operative Report ---
PG Post Operative Report Pre & Post Diagnosis Operation Date: 06/10/19 15:00 Preoperative diagnosis: Paroxysmal atrial fibrillation Postoperative diagnosis: Same I identified the patient and participated in the time-out.: Yes Procedure Operation Date: 06/10/19 15:00 Actual Procedures p Loop Insertion - Faraz Jackson MD Surgeon Faraz Jackson MD Needle Loom Setter None Estimated Blood Loss 2 Findings Consistent with Post-Op Diagnosis Specimens None Anesthesia Type Local Complications none Disposition Accompanied Patient To Recovery: Yes Disposition: Recovery Room Description of Procedure After obtaining informed consent for the procedure, the patient was brought to the laboratory. The patient was prepped and draped in the standard sterile manner for a loop recorder implantation. An area at the fourth left intercostal space and 1 cm left of the left sternal border was infiltrated with 1% lidocaine local anesthetic and a 0.5 cm incision was made through the skin. Using the loop recorder insertion tool the loop recorder was inserted through the incision at a 45 downward and leftward angle. The incision was closed with a subcutaneous continuous closure of 4-0 Vicryl followed by a running subcuticular skin closure of 4-0 Vicryl. Steri-Strips were applied and bacitracin ointment was placed on the incision. A dressing was applied. I attest to the content of the Intraoperative Record and any orders documented therein. Any exceptions are noted below.
--- NOTE | 2019-06-10 16:27 | Orthopedic Progress Note ---
Date of Service June 10, 2019 Assessment & Plan (1) Left hip pain: She is clinically improved. It is encouraging that she thinks the symptoms are identical to her previous episode with a hematoma related pain this fall. She has a mild bump in her inflammatory markers and some hip pain, but this may be attributed to the psoas hematoma. Periprosthetic infection can be excluded with a hip aspiration with a radiology consult. If she is otherwise stable, improving with regard to hip pain, and without signs of sepsis, periprosthetic infection can be worked up as an outpatient while we wait for symptoms to improve from the hematoma after discontinuing her anticoagulant. I recommend a follow-up with Dr. Brigido Nevarez or Godfrey Gonzalez with regard to the possible periprosthetic infection. We will continue to follow her course and review the results of the aspiration if obtained on this admission. (2) Psoas hematoma, left, secondary to anticoagulant therapy: Subjective Patient reports that she had dramatic improvement in her hip pain. She is able to walk to the bathroom with minimal discomfort. She still has pain in the groin particular when she flexes her hip. She reports that it feels tight. She is encouraged that her white count has gone down. Review of Systems Review of Systems: All systems reviewed & are unremarkable except as noted in HPI & below Physical Exam Physical Exam: She is in no acute distress, alert awake and oriented x3. Left lower extremity: She is able to actively flex and extend the knee without pain. She can flex hip but she does have discomfort. Her exam is essentially unchanged yesterday. Results & Data Vital Signs (Past 12 Hours) Vital Signs Temp Pulse Pulse Resp BP Pulse Ox 06/10/19 15:35 62 17 127/72 92 06/10/19 15:19 60 06/10/19 14:46 64 17 137/87 94 06/10/19 11:25 36.8 C 63 18 133/76 91 06/10/19 07:28 70 06/10/19 07:20 37.1 C 72 18 109/71 95 06/10/19 04:37 74 Selected Entries Laboratory Results 06/10/19 11:25 Temperature 36.8 C Laboratory Tests 04/27/19 05/27/19 06/09/19 11:38 12:04 05:37 WBC 13.57 H 9.67 13.35 H Immature Gran % (Auto) 0.2 ESR C-Reactive Protein 06/09/19 06/09/19 06/10/19 05:37 05:37 06:00 WBC 8.23 Immature Gran % (Auto) 0.1 ESR 48 H C-Reactive Protein 0.82 H Diagnostic Findings X-rays are unremarkable. They demonstrate well fixed implant with no interval change from her previous x-rays this year. PG Care Time/CCT Total # of Minutes Spent Total Time Spent with Patient: Total time spent is greater than 50% in coordination of care (as documented) at patient's floor/unit and/or counseling patient: Coding Level of Care Code 53566 Subseq Hosp Care Lvl 3 Diagnoses Left hip pain M25.552 Psoas hematoma, left, secondary to anticoagulant therapy S30.1XXA
[2019-06-11] MEDS ORDERED: CEFAZOLIN 250 MG/ML 1 GM VIAL IV SCH (06:00)
--- NOTE | 2019-06-11 19:44 | Emergency Department Note ---
Entered by Kip Carpio acting as a scribe for History of Present Illness General Chief complaint: Groin Pain Stated complaint: GROIN PAIN Time Seen by Provider: 06/09/19 05:05 Source: patient History of Present Illness Onset (ago): day(s) (yesterday at 1500) Location: abdomen (groin) Severity: similar to prior episodes Pain Consistency: + constant Maximum Pain Intensity: 8 The patient is a 69 year old female who presents to the emergency department with complaints of constant left-sided groin pain beginning at 1500 yesterday. The patient states that she had a similar episode of groin pain five months ago. She notes that nothing was found at that time and she was sent to physical therapy. She reports that a hematoma was found in the area a few weeks later. The patient states that she is on Eliquis. Home Medications Home Medications Medication Instructions Recorded Confirmed Type calcium carbonate [Calcium 600] 600 mg PO BIDM 08/06/18 06/09/19 History cholecalciferol (vitamin D3) 5,000 unit PO QAM 08/06/18 06/09/19 History [Vitamin D3] coenzyme Q10 [CoQ-10] 200 mg PO QAM 08/06/18 06/09/19 History diltiazem HCl 120 mg PO HS 08/06/18 06/09/19 History flecainide 50 mg PO HS 08/06/18 06/09/19 History omeprazole 40 mg PO QAM 08/06/18 06/09/19 History magnesium oxide 400 mg PO BID 08/17/18 06/09/19 History loratadine 10 mg tablet 10 mg PO PM PRN tab 11/05/18 06/09/19 History diltiazem HCl 240 mg 240 mg PO QAM #90 cap 12/25/18 06/09/19 Rx capsule,extended release 24 hr spironolactone 25 mg tablet 25 mg PO QAM #90 tab 04/19/19 06/09/19 Rx flecainide 100 mg tablet 100 mg PO QAM #90 tab 05/06/19 06/09/19 Rx losartan 50 mg tablet 50 mg PO QAM #90 tab 05/31/19 06/09/19 Rx hydrochlorothiazide 25 mg PO DAILY 06/09/19 06/09/19 History rosuvastatin 5 mg PO HS #30 tab 06/10/19 Rx Allergies Allergy/AdvReac Type Severity Reaction Status Date / Time Penicillins Allergy Intermediate UPSET Verified 06/09/19 06:11 STOMACH - CAN TOLERATE IF NEEDED Sulfa (Sulfonamide Allergy Intermediate RASH/HIVES Verified 06/09/19 06:11 Antibiotics) aspirin Allergy Unknown Unknown Verified 06/09/19 06:11 NSAIDS (Non-Steroidal Allergy Unknown Unknown Verified 06/09/19 06:11 Anti-Inflamma latex AdvReac Mild POWDER IN Verified 06/09/19 06:11 LATEX GLOVES-->ITCHING, SENSITIVITY NOT ALLERGY codeine AdvReac Unknown PROJECTILE Verified 06/09/19 06:11 VOMITING,HEADACHE Past Med/Surg History Medical History Atrial fibrillation Chronic reflux esophagitis (Acute) GERD (gastroesophageal reflux disease) Hypercholesterolemia (Acute) Hyperlipidemia Hypertension Migraine HX OF Osteoarthritis Paroxysmal atrial fibrillation (Acute) Pulmonary embolism OVER 20 YEARS AGO (CAUSED BY HORMONE REPLACEMENT THERAPY) Scoliosis Stomach ulcer Temporomandibular joint disorder Surgical History History of adenoidectomy History of bladder surgery History of dilatation and curettage History of esophagogastroduodenoscopy (EGD) History of hernia repair History of herniorrhaphy History of hysterectomy History of incision and drainage Of Skin Abscess History of knee surgery History of laparoscopy History of tonsillectomy History of tooth extraction History of total abdominal hysterectomy History of total hip arthroplasty LEFT Family History Father Atrial fibrillation COPD (chronic obstructive pulmonary disease) Mother Coronary heart disease Hx of CABG Grandfather (Maternal) Cerebral hemorrhage Sister Atrial fibrillation Leaky heart valve Celiac disease Social History Preferred Language: Croatian Communication Ability: Effective 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 and A total of 10 systems reviewed and were otherwise negative Physical Exam Vital Signs Vital Signs - 24 hr 06/09/19 04:57 Temperature 97.7 F Temperature Source Oral Pulse Rate 93 H Respiratory Rate 16 Blood Pressure 152/86 H Blood Pressure Mean 108 Blood Pressure Position Sitting Pulse Oximetry 93 Oxygen Delivery Method Room Air Sepsis Recent Fever Within 48 Hours No Sepsis New/Unexplained Change in Mental Status No Sepsis Action Taken by Nursing No Action Required GENERAL: Awake, alert, well-appearing, in no acute distress HENT: Normocephalic, atraumatic. Oropharynx unremarkable. EYES: Normal conjunctiva. Sclera non-icteric. NECK: Supple. No nuchal rigidity. FROM. No JVD. RESPIRATORY: Clear to auscultation. CARDIAC: Regular rate, normal rhythm. Extremities warm and well perfused. Pulses equal. ABDOMEN: Soft, non-distended. No rebound or guarding. No masses. Tender to LLQ. RECTAL: Deferred. MUSCULOSKELETAL: Chest examination reveals no tenderness. The back is symmetrical on inspection without obvious abnormality. There is no CVA tenderness to palpation. No joint edema. LOWER EXTREMITIES: Calves are equal size bilaterally and non-tender. No edema. No discoloration. NEURO: Normal sensorium. No sensory or motor deficits noted. SKIN: No rash or jaundice noted. Course Course 05: The patient was evaluated in room A11. A complete history and physical exam was performed. Administered Medications Discontinued Medications Acetaminophen (Tylenol) 650 mg PO Q4H PRN PRN Reason: Pain Stop: 07/09/19 18:21 Last Admin: 06/10/19 11:26 Dose: 650 mg Documented by: [id number] Admin: 06/10/19 05:55 Dose: 650 mg Documented by: [id number] Admin: 06/10/19 00:04 Dose: 650 mg Documented by: [id number] Calcium Carbonate (Os-Sandeep 500) 1,250 mg PO BIDM [facility] Stop: 07/09/19 16:59 Last Admin: 06/10/19 16:22 Dose: 1,250 mg Documented by: [id number] Admin: 06/10/19 08:12 Dose: 1,250 mg Documented by: [id number] Admin: 06/09/19 17:11 Dose: 1,250 mg Documented by: [id number] Diltiazem HCl (Cardizem Cd) 120 mg PO HS [facility] Stop: 07/09/19 20:59 Last Admin: 06/09/19 20:43 Dose: 120 mg Documented by: [id number] Diltiazem HCl (Cardizem Cd) 240 mg PO QAM [facility] Stop: 07/10/19 08:59 Last Admin: 06/10/19 08:12 Dose: 240 mg Documented by: [id number] Diphenhydramine HCl (Benadryl Capsule) 25 mg PO HS PRN PRN Reason: Insomnia Stop: 07/09/19 18:24 Last Admin: 06/09/19 20:41 Dose: 25 mg Documented by: [id number] Flecainide Acetate (Tambocor) 50 mg PO HS [facility] Stop: 07/09/19 20:59 Last Admin: 06/09/19 20:42 Dose: 50 mg Documented by: [id number] Flecainide Acetate (Tambocor) 100 mg PO QAM [facility] Stop: 07/10/19 08:59 Last Admin: 06/10/19 08:12 Dose: 100 mg Documented by: [id number] Hydrochlorothiazide (Hctz) 25 mg PO DAILY [facility] Stop: 07/10/19 08:59 Last Admin: 06/10/19 08:12 Dose: 25 mg Documented by: [id number] Hydromorphone HCl (Dilaudid) 0.5 mg IV Q15M PRN PRN Reason: Pain Stop: 06/23/19 05:15 Last Admin: 06/09/19 09:45 Dose: 0.5 mg Documented by: [id number] Admin: 06/09/19 06:24 Dose: 0.5 mg Documented by: [id number] Admin: 06/09/19 05:36 Dose: 0.5 mg Documented by: [id number] Ceftriaxone Sodium (Rocephin) 2,000 mg in 70 mls @ 140 mls/hr IV NOW STA Stop: 06/09/19 08:10 Last Infusion: 06/09/19 08:27 Dose: 0 mls/hr Documented by: [id number] Admin: 06/09/19 07:57 Dose: 140 mls/hr Documented by: [id number] Vancomycin HCl (Vancomycin Hcl) 1,000 mg in 270 mls @ 125 mls/hr IV NOW STA Stop: 06/09/19 09:52 Last Infusion: 06/09/19 12:08 Dose: 0 mls/hr Documented by: [id number] Admin: 06/09/19 08:45 Dose: 125 mls/hr Documented by: [id number] Lactated Ringer's (Lr) 1,000 mls @ 15 mls/hr IV .Q24H [facility] Stop: 06/11/19 14:59 Last Admin: 06/10/19 16:14 Dose: Not Given Documented by: [id number] Cefazolin Sodium (Ancef 2000mg) 2,000 mg in 15 mls @ 3.75 mls/min IV PREOP [facility]; Protocol Stop: 06/10/19 18:00 Last Admin: 06/10/19 15:13 Dose: 3.75 mls/min Documented by: [id number] Ioversol (Optiray 320 100ml) 100 ml IV ONCE PRN PRN Reason: Interaction Checking Stop: 06/13/19 05:45 Last Admin: 06/09/19 05:47 Dose: 93 ml Documented by: [id number] Lidocaine HCl (Xylocaine 1% (Local)) Confirm Administered Dose 20 ml .ROUTE .STK-MED ONE Stop: 06/10/19 15:04 Last Admin: 06/10/19 16:15 Dose: Not Given Documented by: [id number] Losartan Potassium (Cozaar) 50 mg PO QAM [facility] Stop: 07/10/19 08:59 Last Admin: 06/10/19 08:12 Dose: 50 mg Documented by: [id number] Magnesium Oxide (Mag-Ox) 400 mg PO BID [facility] Stop: 07/09/19 20:59 Last Admin: 06/10/19 08:12 Dose: 400 mg Documented by: [id number] Admin: 06/09/19 20:43 Dose: 400 mg Documented by: [id number] Ondansetron HCl (Zofran) 4 mg IV NOW STA Stop: 06/09/19 05:17 Last Admin: 06/09/19 05:36 Dose: 4 mg Documented by: [id number] Pantoprazole Sodium (Protonix) 40 mg PO QAM [facility] Stop: 07/10/19 08:59 Last Admin: 06/10/19 08:12 Dose: 40 mg Documented by: [id number] Simvastatin (Zocor) 20 mg PO HS [facility] Stop: 07/09/19 20:59 Last Admin: 06/09/19 20:43 Dose: 20 mg Documented by: [id number] Spironolactone (Aldactone) 25 mg PO [facility] Stop: 07/10/19 08:59 Last Admin: 06/10/19 08:12 Dose: 25 mg Documented by: [id number] Vitamin D (Vitamin D3) 5,000 units PO [facility] Stop: 07/09/19 10:59 Last Admin: 06/10/19 08:12 Dose: 5,000 units Documented by: [id number] Admin: 06/09/19 12:16 Dose: Not Given Documented by: [id number] Medical Decision Making Differential Diagnosis Differential diagnosis: Etiologies such as biliary colic, cholecystitis, hepatitis, pancreatitis, ca rdiac disease, pancreatitis, gastritis, peptic ulcer disease, appendicitis, cystitis, diverticulitis, mesenteric ischemia, inflammatory bowel disease, ileus, bowel obstruction, testicular torsion, aortic pathology, shingles, as well as others were considered. Medical Records Attestation: I reviewed the patient's medical records. Home Medications Current Medication List: was personally reviewed by me Laboratory Data Attestation: I reviewed the patient's lab results. Result diagrams: 06/10/19 06:00 06/10/19 05:57 Lab Results 06/09/19 06/09/19 06/09/19 Range/Units 05:37 05:37 05:37 WBC 13.35 H (4.8-10.8) K/uL RBC 5.83 H (4.2-5.4) M/uL Hgb 16.6 H (12.0-16.0) g/dL POC Hgb (12.0-16.0) g/dl Hct 50.0 H (37-47) % POC Hct (37-47) % MCV 85.8 (80-100) fL MCH 28.5 (25-34) pg MCHC 33.2 (32-36) g/dL RDW Std Deviation 46.9 H (36.4-46.3) fL RDW Coeff of Jeffery 15.0 H (11.5-14.5) % Plt Count 323 (130-400) K/uL MPV 10.9 H (7.4-10.4) fL Immature Gran % (Auto) 0.2 % Neut % (Auto) 79.5 % Lymph % (Auto) 8.1 % Cotton % (Auto) 10.5 % Eos % (Auto) 1.3 % Baso % (Auto) 0.4 % Immature Gran # (Auto) 0.03 H (0.00-0.02) K/uL Neut # (Auto) 10.62 H (1.4-6.5) K/uL Lymph # (Auto) 1.08 L (1.2-3.4) K/uL Cotton # (Auto) 1.40 H (0.11-0.59) K/uL Eos # (Auto) 0.17 (0-0.5) K/uL Baso # (Auto) 0.05 (0-0.2) K/uL ESR 48 H (0-21) mm/hr POC Sodium (135-144) mmol/L Sodium 137 (136-145) mmol/L POC Potassium (3.3-5.0) mmol/L Potassium 3.4 L (3.5-5.1) mmol/L POC Chloride (101-112) mmol/L Chloride 101 (98-107) mmol/L Carbon Dioxide 28 (21-32) mmol/L POC Total CO2 (24-31) mEq/l Anion Gap 8.0 (3-11) POC Anion Gap (16-25) mmol/L POC BUN (7-18) mg/dl BUN 17 (7-18) mg/dl Creatinine 1.01 (0.6-1.2) mg/dl POC Creatinine (0.6-1.3) mg/dl Est Cr Clr Drug Dosing Not Reportable Est GFR ( Amer) 64.9 Est GFR (Non-Af Amer) 56.0 BUN/Creatinine Ratio 16.5 (10-20) Glucose 108 H (70-99) mg/dl POC Glucose (other) (70-99) mg/dl Calcium 9.8 (8.5-10.1) mg/dl POC Ioniz Calcium Alexander (1.12-1.32) mmol/l Total Bilirubin 1.3 H (0.2-1) mg/dl AST 12 L (15-37) U/L ALT 21 (12-78) U/L Alkaline Phosphatase 82 (45-117) U/L C-Reactive Protein (0-0.29) mg/dl Total Protein 7.6 (6.4-8.2) gm/dl Albumin 3.8 (3.4-5.0) gm/dl Globulin 3.8 (2.5-4.0) gm/dl Albumin/Globulin Ratio 1.0 (0.9-2) Lipase 55 L (73-393) U/L Procalcitonin (0-0.5) ng/ml 06/09/19 06/09/19 06/09/19 Range/Units 05:37 05:42 08:44 WBC (4.8-10.8) K/uL RBC (4.2-5.4) M/uL Hgb (12.0-16.0) g/dL POC Hgb 17.3 H (12.0-16.0) g/dl Hct (37-47) % POC Hct 51 H (37-47) % MCV (80-100) fL MCH (25-34) pg MCHC (32-36) g/dL RDW Std Deviation (36.4-46.3) fL RDW Coeff of Jeffery (11.5-14.5) % Plt Count (130-400) K/uL MPV (7.4-10.4) fL Immature Gran % (Auto) % Neut % (Auto) % Lymph % (Auto) % Cotton % (Auto) % Eos % (Auto) % Baso % (Auto) % Immature Gran # (Auto) (0.00-0.02) K/uL Neut # (Auto) (1.4-6.5) K/uL Lymph # (Auto) (1.2-3.4) K/uL Cotton # (Auto) (0.11-0.59) K/uL Eos # (Auto) (0-0.5) K/uL Baso # (Auto) (0-0.2) K/uL ESR (0-21) mm/hr POC Sodium 137 (135-144) mmol/L Sodium (136-145) mmol/L POC Potassium 3.4 (3.3-5.0) mmol/L Potassium (3.5-5.1) mmol/L POC Chloride 99 L (101-112) mmol/L Chloride (98-107) mmol/L Carbon Dioxide (21-32) mmol/L POC Total CO2 27 (24-31) mEq/l Anion Gap (3-11) POC Anion Gap 15.0 L (16-25) mmol/L POC BUN 15 (7-18) mg/dl BUN (7-18) mg/dl Creatinine (0.6-1.2) mg/dl POC Creatinine 0.9 (0.6-1.3) mg/dl Est Cr Clr Drug Dosing Est GFR ( Amer) Est GFR (Non-Af Amer) BUN/Creatinine Ratio (10-20) Glucose (70-99) mg/dl POC Glucose (other) 111 H (70-99) mg/dl Calcium (8.5-10.1) mg/dl POC Ioniz Calcium Alexander 1.15 (1.12-1.32) mmol/l Total Bilirubin (0.2-1) mg/dl AST (15-37) U/L ALT (12-78) U/L Alkaline Phosphatase (45-117) U/L C-Reactive Protein 0.82 H (0-0.29) mg/dl Total Protein (6.4-8.2) gm/dl Albumin (3.4-5.0) gm/dl Globulin (2.5-4.0) gm/dl Albumin/Globulin Ratio (0.9-2) Lipase (73-393) U/L Procalcitonin < 0.05 (0-0.5) ng/ml Imaging Data Radiologist's Impression: [place], [place] [phone] CT Scan Report Patient: JCARLOS PRINCE Date: 06/09/19 MR#: [id number]: Mario [address] Acct ID:[id number]: Date: 1950[facility] Zip: [place] [address] Age: 69Location: ED Sex: F Room/Bed: Att Phy:Diagnosis: GROIN PAIN Pia Phy: Amrik Martinez MDService Date: 06/09/19 Fam Phy:Interpreting Phy: Stone Arevalo Admit Phy: Ordering Phy: Jluis Hobbs MD cc: ~ ABDOMEN AND PELVIS CT WITH IV CONTRAST CT DOSE: 1011.38 mGy.cm HISTORY: Acute left hip/groin pain Pt c/o left sided groin pain TECHNIQUE: Multiaxial CT images of the abdomen and pelvis were performed following the IV administration of 93 cc of Optiray 320, A dose lowering technique was utilized adhering to the principles of ALARA. COMPARISON STUDY: Left thigh soft tissue ultrasound 03/22/2019, MRI of the pelvis 09/03/2013 FINDINGS: Linear subsegmental bibasilar atelectasis/scarring. Evaluation of the lung bases limited secondary to respiratory motion artifact. No pneumatosis or pneumoperitoneum identified. There is fusiform dilation of the imaged aortic root, 4.4 x 4.4 cm. Coronary arterial calcifications are noted. Heart is upper limits of normal in size. Upper abdomen structures are suboptimally evaluated secondary to respiratory motion artifact. Within the limitations of the exam, the spleen, adrenal glands and gallbladder appear unremarkable. Moderate generalized pancreatic atrophy. Unremarkable appearance of the liver. Multiple subcentimeter bilateral renal hypodensities suggest probable cysts. 2.7 cm renal sinus cyst of the inferior pole left kidney. No renal or ureteral calculi or obstructive uropathy. There is partial distention of the urinary bladder. Hysterectomy. No adnexal mass lesions. Mild to moderate calcified plaque of the aorta without aneurysm. Unremarkable IVC. No adenopathy. Large hiatal hernia. There is no bowel obstruction or bowel wall thickening. Extensive colonic diverticulosis without acute diverticulitis. Terminal ileum is unremarkable. The appendix appears surgically absent. No ascites or mesenteric inflammation. Left hip total joint arthroplasty. Streak artifact from the arthroplasty device limits evaluation of the adjacent tissues. Moderate right hip osteoarthritis. Severe levoscoliosis of the lumbar spine with multilevel advanced degeneration. No acute fracture identified. No evidence of hardware complication. Small collection adjacent to the greater trochanter of the left proximal femur measures 3.1 x 1.7 cm image 390 series 3 suggestive of a small seroma. Additionally, there is mild to moderate asymmetric prominence of the left iliacus muscle on image 334 series 3 with minimal adjacent stranding. IMPRESSION: 1. Left hip total joint arthroplasty. Streak artifact from the arthroplasty limits evaluation of the adjacent tissues. No acute fracture or evidence of hardware complication. There is however asymmetric prominence of the left iliacus muscle suggestive of a probable small intramuscular hematoma. This finding was called/faxed to the emergency department at time of dictation. 2. No acute intra-abdominal or intrapelvic abnormality. 3. Severe colonic diverticulosis without acute diverticulitis. 4. Large hiatal hernia. 5. Fusiform dilation of the aortic root, 4.4 x 4.4 cm. 6. Additional findings as above. ACT 112: Negative or not required by law. The above report was generated using voice recognition software. It may contain grammatical, syntax or spelling errors. Electronically signed by: Alonzo Arevalo M.D. 06/09/2019 7:24 AM Dictated: 06/09/19 0710 Transcribed: 06/09/19 07 [place], [place] [phone] Ultrasound Report Patient: JCARLOS PRINCE Date: 06/09/19 MR#: [id number] [address] Acct ID:[id number]: Date: 1950City Zip: [place] [address] Age: 69Location: ED Sex: F Room/Bed: Att Phy:Diagnosis: GROIN PAIN Pia Phy: Amrik Martinez MDService Date: 06/09/19 Fam Phy:Interpreting Phy: Stone Arevalo Admit Phy: Ordering Phy: Jluis Hobbs MD cc: ~ US extremity non-vascular ltd HISTORY: 69 years-old Female Pt c/o left leg pain hx of hematoma acute pain of the left inguinal region COMPARISON: CT abdomen and pelvis of same day, ultrasound 03/22/2019 TECHNIQUE: Multiple real-time sonographic images of the left inguinal tissues were obtained assessing grayscale appearance and color flow. FINDINGS: Within the area of clinical concern there is a mildly complex hypoechoic collection measuring 4.9 x 5.7 x 1.8 cm which appears to be located within the iliacus muscle, deep to the femoral vessels. On prior study from 03/14/2019, this collection measured 3.9 x 2.5 x 1.2 cm and on the January exam measured up to 9.3 cm. IMPRESSION: Mildly increased size of the complex hypoechoic collection of the proximal left thigh suggestive of an intramuscular hematoma of the iliacus muscle. ACT 112: Negative or not required by law. The above report was generated using voice recognition software. It may contain grammatical, syntax or spelling errors. Electronically signed by: Alonzo Arevalo M.D. 06/09/2019 7:48 AM Dictated: 06/09/1945 Transcribed: 06/09/19744 Prescription Drug Monitoring [place] Drug Monitoring Program reviewed and no issues identified Blood Pressure Blood Pressure Findings: Normal blood pressure MDM Narrative This is a 69-year-old female who presents emergency department complaining of left leg pain. Using shared medical decision making with the patient and family decision was made to send the patient for CAT scan of the abdomen pelvis. This was concerning for a possible intramuscular bleed. In addition the patient was also sent for an ultrasound which confirmed a hematoma. I did discuss the case with the surgeon on-call who asked that the patient be admitted to the medicine service. Patient was discussed with medicine service and started on antibiotics including Rocephin and vancomycin. Patient was in agreement with the treatment plan. Impression & Plan Psoas hematoma, left, secondary to anticoagulant therapy, Anticoagulant long- term use, Leukocytosis, Left hip pain Discharge Plan Visit Data *Final* Discharge Date/Time: 06/09/19 09:49 Chief Complaint: Groin Pain Stated Complaint: GROIN PAIN ED Provider: Jluis Hobbs Discharge Problem: Psoas hematoma, left, secondary to anticoagulant therapy, Anticoagulant long- term use, Leukocytosis, Left hip pain Patient Disposition: Admitted As Inpatient Discharge Instructions Interventions: ED Discharge Assessment Last Done: 06/09/19 09:49 Discharge Problem: Psoas hematoma, left, secondary to anticoagulant therapy Qualifiers: Encounter type: initial encounter Qualified Code(s): S30.1XXA - Contusion of abdominal wall, initial encounter Leukocytosis Qualifiers: Leukocytosis type: unspecified Qualified Code(s): D72.829 - Elevated white blood cell count, unspecified The scribe's documentation has been prepared under my direction and personally reviewed by me in its entirety. I confirm that the note above accurately reflects all work, treatment, procedures, and medical decision making performed by me.
--- NOTE | 2019-06-16 00:25 | Discharge Summary ---
Date of Service June 10, 2019 Admission HPI Per Admitting Provider Patient with history of paroxysmal atrial fibrillation, had an injury on August of 2018, and multiple ecchymosis from a fall. In december she noticed L groin pain and was found to have a hematoma diagnosed via ultrasound in January. It was monitored and treated conservatively by Surgery. It decreased in size and was improving on repeat US in February. However yesterday pain in the left groin returned. She did not notice an ecchymosis or swelling in the area. Patient also denies any fever, chills, nausea vomiting, sweats. Patient reports she was doing some house cleaning but did not have any trauma. She recently switched her anticoagulant from xarelto to eliquis as per cardiology for Atrial fibrillation. Principal Diagnosis hematoma Discharge Exam Constitutional: well developed and well nourished Eyes: PERRL, conjunctivae normal, anicteric sclerae ENMT: external ear and nose normal, oropharynx normal Neck: trachea midline, no thyromegaly Respiratory: normal respiratory effort, lungs clear to auscultation Cardiovascular: RRR, no murmur, no edema Gastrointestinal (Abdomen): normal bowel sounds, soft, nontender, no hepatosplenomegaly Musculoskeletal: no cyanosis or clubbing, extremities motor strength 5/5 Neurologic: normal touch/pain/proprioception Psychiatric: A+Ox3, euthymic affect Discharge Data Allergies Allergy/AdvReac Type Severity Reaction Status Date / Time Penicillins Allergy Intermediate UPSET Verified 06/09/19 06:11 STOMACH - CAN TOLERATE IF NEEDED Sulfa (Sulfonamide Allergy Intermediate RASH/HIVES Verified 06/09/19 06:11 Antibiotics) aspirin Allergy Unknown Unknown Verified 06/09/19 06:11 NSAIDS (Non-Steroidal Allergy Unknown Unknown Verified 06/09/19 06:11 Anti-Inflamma latex AdvReac Mild POWDER IN Verified 06/09/19 06:11 LATEX GLOVES-->ITCHING, SENSITIVITY NOT ALLERGY codeine AdvReac Unknown PROJECTILE Verified 06/09/19 06:11 VOMITING,HEADACHE Consultations 06/09/19 07:44 Consult General Surgery Stat 06/09/19 07:57 ED Decision to Admit Stat 06/09/19 09:59 Consult Cardiology Routine 06/09/19 11:23 Consult Orthopedic Surgery Routine 06/09/19 18:11 Consult Infectious Diseases Routine Procedures Performed Operation Date: 06/10/19 15:00 Actual Procedures p Implant Cardiac Event Recorder(Left) - Faraz Jackson MD Ordered Studies 06/09/19 05:15 CT abd pelvis IV con only Urgent 06/09/19 06:43 US extremity non-vascular ltd Stat 06/10/19 14:56 CL Cath Imgs for PACS use only Routine Hospital Course (1) Psoas hematoma, left, secondary to anticoagulant therapy: Will admit to medical with tele due to history of A. fib Consulted surgery and cardiology. Patient states to not have been in a. fib for past 7 year, but patient can silently be in A. fib. will hold eliquis for now. Will place on cardac montior. Patient may need to have eliquis held for an extended period of time. Given her age and sex though her CHADSVASC score is 3. Cardio agrees with holding eliquis. Patient understands risk of holding anticoag, vs continuing with hematoma. (2) Leukocytosis: Patient presented with WBC elevation, however no other signs of infection. Antibiotics ordered prior to admission by other provider in ER. No cultures were drawn prior to ANTIBIOTICS ADMINISTRATION. Order procalcitonin this was negative Doubt underlying infection as patient has no other signs of SIRS. No need for further antibiotics (3) Hypertension: resume home medications (4) Paroxysmal atrial fibrillation: resume home meds (5) Hypercholesterolemia: may need to switch to atorvastatin due to diltiazem interaction Total Time Total Time Spent Total Time Spent (In Minutes): 32 Total Time Includes: Examination of the Patient, Discharge Planning and Medication Reconciliation Discharge Plan Discharge Items Patient Disposition: Home - Self-Care Reason For Visit: HEMATOMA IN GROIN, H/O AFIB Discharge Diagnosis: Hematoma in groin, H/O AFIB Activity: Resume your previous activity Non-emergency contact: Primary Care Provider Call non-emergency contact if: you have any medication questions Follow-up/Referrals: Faraz Jackson MD [Physician] - 06/14/19 10:00 am Amrik Martinez MD [Primary Care Provider] - Diet: Regular Addtl Attending Provider Instructions: Periprosthetic infection can be excluded with a hip aspiration, however you are stable and pain is improving. You also do not have signs of sepsis. Periprosthetic infection can be worked up as an outpatient while we wait for symptoms to improve from the hematoma after discontinuing THE BLOOD THINNER. Recommend a follow-up with Dr. Brigido Nevarez or Godfrey Gonzalez with regard to the possible periprosthetic infection. We will schedule this. Will be done in 2-3 weeks. Switching simvastatin to rosuvastatin as simvastatin has an interaction with diltiazem. Muscle cramps are a possibility with any statin. Please let your primary care doctor know if you have any new symptoms. ACTIVITY RECOMMENDATIONS: * Do not raise affected arm over head for 2 weeks. SPECIAL CARE INSTRUCTIONS: * If bleeding occurs, apply direct pressure to area for 5 minutes. * Call your doctor if you have severe pain, fever, drainage or bleeding at site. * Keep dressing on and dry for 72 hours then remove. * Keep any scheduled doctor's appointment. * Implant Card - hand held device with website information given. FOLLOW UP VISIT: Keep any scheduled doctor appointments. Pending Studies at Discharge: No Stand-Alone Forms: My [employer], Smoking Cessation Medications and DC Order Prescriptions: New rosuvastatin 5 mg tablet 5 mg PO HS Qty: 30 RF: 0 Continued diltiazem HCl 240 mg capsule,extended release 24hr 240 mg PO QAM Qty: 90 RF: 1 spironolactone 25 mg tablet 25 mg PO QAM Qty: 90 RF: 1 flecainide 100 mg tablet 100 mg PO QAM Qty: 90 RF: 3 losartan 50 mg tablet 50 mg PO QAM Qty: 90 RF: 3 loratadine 10 mg tablet 10 mg PO PM PRN (Reason: allergies) RF: 0 omeprazole 40 mg capsule,delayed release(DR/EC) 40 mg PO QAM RF: 0 calcium carbonate [Calcium 600] 600 mg calcium (1,500 mg) Tablet 600 mg PO BIDM RF: 0 flecainide 50 mg tablet 50 mg PO HS RF: 0 diltiazem HCl 120 mg capsule,extended release 24hr 120 mg PO HS RF: 0 coenzyme Q10 [CoQ-10] 100 mg Capsule 200 mg PO QAM RF: 0 cholecalciferol (vitamin D3) [Vitamin D3] 5,000 unit Tablet 5,000 unit PO QAM RF: 0 magnesium oxide 400 mg Capsule 400 mg PO BID RF: 0 hydrochlorothiazide 25 mg tablet 25 mg PO DAILY RF: 0 Discontinued Eliquis 5 mg tablet 5 mg PO BID Qty: 60 RF: 2 simvastatin 20 mg tablet 20 mg PO HS RF: 0 Discharge Orders: Discharge Order (Routine); Ordered 06/10/19 Ordered By: Carlos Shea/Other Patient Handouts: Rosuvastatin Calcium Oral tablet Admission Data Admit Date/Time: 06/09/19 08:50 Attending Provider: Carlos Sagastume Admit Provider: Carlos Sagastume Primary Care Provider: Amrik Martinez Other Providers: Gurpreet Shore ; Carlos Sagastume ; Faraz Jackson ; Dudley Nevarez ; Kenya Lopez Other Interventions: Discharge Summary Assessment (RN) Last Done: 06/10/19 19:03 DC Date/Time DO NOT enter until pt leaves facility: 06/10/19 19:53
== END 2019-06-10 19:53 | disposition home or self-care (01) | DRG 983 ==
LOC: ED 04:55 → 2N 08:50 → 2S 06-10 15:58

== ENCOUNTER 2020-12-06 23:20 | Inpatient (IN) ==
[2020-12-07] MEDS ORDERED: SODIUM CHLORIDE 0.9% 1000ML 500 ML IV ONE (00:28)
--- NOTE | 2020-12-07 00:34 | Emergency Department Note ---
Impression & Plan Symptomatic bradycardia, Paroxysmal A-fib ED Provider Note Name: JCARLOS PRINCE Age: 70 Sex: F Arrives Via: Walk-In Informant: Patient, ED Provider: Christiano Lisa MD Chief Complaint: Palpitations Impression: Symptomatic Bradycardia Paroxysmal Afib Medical Decision Makin yr old female with history of known P-Afib who has had loop recorder for some time. She arrives due to worsening palpations at home, as well as episodes of lightheaded/blurry vision. She has no evidence of stroke by examination at this time. After arrival she notes resolution of palpitations and on my evaluation is in NSR with episodes of PVCs & bigeminy though I will note that EKG prior to my evaluation is junctional bradycardia. CXR, labs. Review by [employer] reveals multiple episodes over last 2 weeks of significant bradycardic episodes with HR < 30 for 15-30 seconds at a time. She is hemodynamically stable, is comfortable and in no distress. Symptoms do not seem to be consistent with acs, dissection, pe, nor infectious etiology. She previous has had significant bleeding events while on anticoagulation and thus was not started on heparin at this time. Given possible need for pace maker and symptomatic nature, along with admitting she is worried her won't be able to catch her if she falls while lightheaded, hospitalist was consulted for further management. Patient and comfortable with this plan. Prior Medical Record and Triage/Nursing Notes reviewed by Me Additional history obtained from chart Differentials:Premature contractions, electrolyte abnormality, cardiac dysrhythmia, thyroid dysfunction, pulmonary embolism, infection, gastrointestinal, as well as other pathologies. Vital Signs: reviewed and remarkable for no significant abnormalities Interventions: saline lock, 1 L NSS Bolus Labs:Reviewed and remarkable for no significant abnormalities Imaging:X ray results are stated below per my interpretation: Chest: 1 view: No infiltrate, no effusion, normal cardiac border. EKG:Per My Interpretation: Indication Palpitations: Junctional bradycadia 55 bpm, qtc 449. No Ectopy. No Ischemia. Compared to EKG 08/06/18 she is now junctional bradycardia. Cardiac/Tele Monitoring: Cardiac Monitoring: An Order was placed for continuous cardiac monitoring. The monitor shows a rate of 60 with a normal sinus rhythm. Consults:Dr Caitlin KOCH Hospitalist. [employer] ([employer]) - multiple episodes of severe bradycardia Plan: Disposition:Hospitalization. Condition: Good History of Present Illness:70 yr old arrives for evaluation of palpitations. Patient notes history of intermittent Afib with failure of Anticoagulation (Xarelto & Eliquis with significant bleeding). Currently on Cardizem and ASA 81mg daily for management of afib. She states she had a loop recorder placed about a year or 2 ago. The last 2 days with some lightheadedness and at times feeling like vision getting blurry. This evening noted palpitations and not feeling right. No chest pain, sob, syncope, leg swelling (left always bigger than right), rashes, abdominal pain, back pain, fevers, chills, nausea, vomiting, ,urinary/bowel symptoms nor other symptoms. Notes previously cardiology has advised discussion of Pace-Maker and possible Watchman device, though she was concerned for need for anticoagulation thus had held off. ROS: See above HPI for pertinent positives & negatives. A total of 10 systems reviewed and were otherwise negative. Past Medical History:See Below Past Surgical History:See Below Family History:See Below Social History:See Below Home Medications:See Below Allergies:PNC, Sulfa, NSAIDs, Codeine Vitals:Blood Pressure: 145/67, Pulse 58, RR 19, T 36.9C, O2 94% on RA Physical Exam: GENERAL: Patient is anxious appearing and in minimal distress. EYES: No scleral icterus, unremarkable pupils. ENT: Mucous membranes moist, no nasal congestion. NECK: No masses appreciated, nomeningismus, trachea is midline. RESPIRATORY: No dyspnea. Clear to auscultation and equal bilaterally. No wheeze, no rhonchi. CARDIOVASCULAR: Regular rate and rhythm.No murmurs, rubs, gallops appreciated. GASTROINTESTINAL: Abdomen soft, non-tender, no peritonitis.Bowel sounds positive.No masses appreciated. BACK: No midline tenderness, no CVA tenderness EXTREMITIES: Normal motion all extremities, no cyanosis, no edema. NEUROLOGIC: Alert and oriented, no acute motor or sensory deficits, no focal weakness, cranial nerves grossly intact. SKIN: No rash, no jaundice, no diaphoresis. PSYCH: Appropriate GCS: 15 ED Course: Times/Reassessments: stable, feeling much better, no distress Crhistiano Lisa MD Past Med/Surg History Medical History (Updated 12/07/20 @ 05:12 by Christiano Lisa MD) Gastric ulcer GERD (gastroesophageal reflux disease) Low iron IV INFUSIONS PRN Migraine HX OF Osteoarthritis Psoas hematoma, left, secondary to anticoagulant therapy Pulmonary embolism OVER 20 YEARS AGO (CAUSED BY HORMONE REPLACEMENT THERAPY) Scoliosis Temporomandibular joint disorder Surgical History History of adenoidectomy History of bladder surgery History of dilatation and curettage History of esophagogastroduodenoscopy (EGD) History of hernia repair History of herniorrhaphy History of incision and drainage Of Skin Abscess History of knee surgery History of laparoscopy History of oophorectomy History of tonsillectomy History of tooth extraction History of total abdominal hysterectomy History of total hip arthroplasty LEFT Family History (Updated 11/29/20 @ 10:23 by Faraz Jackson MD) Father Atrial fibrillation COPD (chronic obstructive pulmonary disease) Mother Coronary heart disease Hx of CABG Grandfather (Maternal) Cerebral hemorrhage Sister Atrial fibrillation Leaky heart valve Celiac disease Son Myocardial infarction [place] at age 51 Denies family history of Ovarian cancer Prostate cancer Crohn's disease Breast cancer Colorectal cancer Social History Smoking Status: Never smoker Second Hand Exposure: Yes ( A CHILD); Hx Alcohol Use: Yes Alcohol type: wine Hx Substance Use: No Preferred Language: Telugu Communication Ability: Effective Durability Technician Required: No Beliefs That Will Affect Care: None marital status: Current Living Situation: Spouse current occupational status: retired Feels Safe at Home: Yes Dental Care, Regularly: Yes Physical Activity Frequency: Does not Exercise Physical Activity Frequency Comment: Due to hematoma Seatbelt Use: always Sunscreen Use: Yes Assistive Devices: Glasses and Walker Allergies Allergies Allergy/AdvReac Type Severity Reaction Status Date / Time Penicillins Allergy Intermediate UPSET Verified 11/13/20 10:19 STOMACH - CAN TOLERATE IF NEEDED Sulfa (Sulfonamide Allergy Intermediate RASH/HIVES Verified 11/13/20 10:19 Antibiotics) NSAIDS (Non-Steroidal Allergy Unknown Unknown Verified 11/13/20 10:19 Anti-Inflamma codeine AdvReac Unknown PROJECTILE Verified 11/13/20 10:19 VOMITING,HEADACHE Home Meds Home Medications Medication Instructions Recorded Confirmed calcium carbonate 600 mg calcium 600 mg PO BIDM 08/06/18 12/07/20 (1,500 mg) tablet (Calcium) cholecalciferol (vitamin D3) 125 5,000 unit PO QAM 08/06/18 12/07/20 mcg (5,000 unit) tablet (Vitamin D3) coenzyme Q10 100 mg capsule 200 mg PO QAM 08/06/18 12/07/20 (CoQ-10) magnesium oxide 400 mg PO BID 08/17/18 12/07/20 aspirin 81 mg tablet,delayed 81 mg PO DAILY 10/01/19 12/07/20 release (Adult Low Dose Aspirin) cetirizine 10 mg tablet (Zyrtec) 5 mg PO QPM PRN tab 05/22/20 12/07/20 Previous Rx's Medication Instructions Recorded albuterol sulfate 90 mcg/actuation 2 puffs INH Q6H PRN #18 gm 11/26/19 aerosol inhaler (ProAir HFA) CPAP Machine #1 ea 02/08/20 diclofenac sodium 1 % topical gel 2 g TOP QID #100 gm 03/29/20 hydrochlorothiazide 25 mg tablet 25 mg PO DAILY #90 tab 05/09/20 losartan 50 mg tablet 50 mg PO QAM #90 tab 06/20/20 spironolactone 25 mg tablet 25 mg PO QAM #90 tab 06/22/20 omeprazole 40 mg capsule,delayed See Rx Instructions .ROUTE 06/27/20 release .COMPLEX #180 cap rosuvastatin 5 mg tablet 5 mg PO HS #30 tab 10/04/20 diltiazem HCl 120 mg 120 mg PO HS #90 cap 10/19/20 capsule,extended release 24 hr diltiazem HCl 240 mg See Rx Instructions .ROUTE 11/27/20 capsule,extended release 24 hr .COMPLEX #90 capsule furosemide 20 mg tablet (Lasix) 20 mg PO Q OTHER DAY PRN #45 tab 11/27/20 flecainide 150 mg tablet 150 mg PO Q12H #60 tab 11/29/20 Results & Data (ED) Vital Signs Vital Signs - 24 hr 12/06/20 23:30 12/06/20 23:39 Temperature 36.9 C Temperature Source Temporal Artery Scan Pulse Rate 58 L 57 L Respiratory Rate 19 22 Respiratory Effort / Characteristics Non-Labored Respiratory Depth Normal Respiratory Pattern Regular Blood Pressure 145/67 H 138/81 Blood Pressure Mean 93 100 Pulse Oximetry 94 Oxygen Delivery Method Room Air Sepsis Recent Fever Within 48 Hours No Sepsis New/Unexplained Change in Mental Status N/A Sepsis Action Taken by Nursing No Action Required Laboratory Data Result diagrams: 12/07/20 00:14 12/07/20 01:34 Lab Results 12/07/20 12/07/20 12/07/20 Range/Units 00:14 00:14 00:40 WBC 16.26 H (4.8-10.8) K/uL RBC 5.84 H (4.2-5.4) M/uL Hgb 15.7 (12.0-16.0) g/dL Hct 47.0 (37-47) % MCV 80.5 (80-100) fL MCH 26.9 (25-34) pg MCHC 33.4 (32-36) g/dL RDW Std Deviation 45.9 (36.4-46.3) fL RDW Coeff of Jeffery 15.7 H (11.5-14.5) % Plt Count 333 (130-400) K/uL MPV 11.5 H (7.4-10.4) fL Immature Gran % (Auto) 0.2 % Neut % (Auto) 77.3 % Lymph % (Auto) 12.3 % Glascock % (Auto) 8.2 % Eos % (Auto) 1.7 % Baso % (Auto) 0.3 % Neut # (Auto) 12.55 H (1.4-6.5) K/uL Lymph # (Auto) 2.00 (1.2-3.4) K/uL Glascock # (Auto) 1.34 H (0.11-0.59) K/uL Eos # (Auto) 0.28 (0-0.5) K/uL Baso # (Auto) 0.05 (0-0.2) K/uL Immature Gran # (Auto) 0.04 H (0.00-0.02) K/uL Sodium 139 (136-145) mmol/L Potassium (3.5-5.1) mmol/L Chloride 107 (98-107) mmol/L Carbon Dioxide 28 (21-32) mmol/L Anion Gap 4.0 (3-11) BUN 27 H (7-18) mg/dl Creatinine 1.06 (0.6-1.2) mg/dl Est Cr Clr Drug Dosing Not Reportable Est GFR ( Amer) 60.8 ml/min Est GFR (Non-Af Amer) 52.4 ml/min BUN/Creatinine Ratio 25.5 H (10-20) Glucose 128 H (70-99) mg/dl Calcium 8.9 (8.5-10.1) mg/dl Magnesium (1.8-2.4) mg/dl Total Bilirubin 0.4 (0.2-1) mg/dl Direct Bilirubin (0-0.2) mg/dl AST (15-37) U/L ALT 23 (12-78) U/L Alkaline Phosphatase 107 (45-117) U/L Troponin I < 0.015 (0-0.045) ng/ml Total Protein 7.1 (6.4-8.2) gm/dl Albumin 3.7 (3.4-5.0) gm/dl Lipase 103 (73-393) U/L TSH 4.200 (0.300-4.500) uIu/ml COVID-19 Eval Order Covid19 at [facility] SARS-CoV-2 (PCR) (Negative) 12/07/20 Range/Units 00:40 WBC (4.8-10.8) K/uL RBC (4.2-5.4) M/uL Hgb (12.0-16.0) g/dL Hct (37-47) % MCV (80-100) fL MCH (25-34) pg MCHC (32-36) g/dL RDW Std Deviation (36.4-46.3) fL RDW Coeff of Jeffery (11.5-14.5) % Plt Count (130-400) K/uL MPV (7.4-10.4) fL Immature Gran % (Auto) % Neut % (Auto) % Lymph % (Auto) % Glascock % (Auto) % Eos % (Auto) % Baso % (Auto) % Neut # (Auto) (1.4-6.5) K/uL Lymph # (Auto) (1.2-3.4) K/uL Glascock # (Auto) (0.11-0.59) K/uL Eos # (Auto) (0-0.5) K/uL Baso # (Auto) (0-0.2) K/uL Immature Gran # (Auto) (0.00-0.02) K/uL Sodium (136-145) mmol/L Potassium (3.5-5.1) mmol/L Chloride (98-107) mmol/L Carbon Dioxide (21-32) mmol/L Anion Gap (3-11) BUN (7-18) mg/dl Creatinine (0.6-1.2) mg/dl Est Cr Clr Drug Dosing Est GFR ( Amer) ml/min Est GFR (Non-Af Amer) ml/min BUN/Creatinine Ratio (10-20) Glucose (70-99) mg/dl Calcium (8.5-10.1) mg/dl Magnesium (1.8-2.4) mg/dl Total Bilirubin (0.2-1) mg/dl Direct Bilirubin (0-0.2) mg/dl AST (15-37) U/L ALT (12-78) U/L Alkaline Phosphatase (45-117) U/L Troponin I (0-0.045) ng/ml Total Protein (6.4-8.2) gm/dl Albumin (3.4-5.0) gm/dl Lipase (73-393) U/L TSH (0.300-4.500) uIu/ml COVID-19 Eval Order SARS-CoV-2 (PCR) NEGATIVE (Negative) Administered Medications Discontinued Medications Sodium Chloride (Nss 1000ml) 500 mls @ 999 mls/hr IV .Q31M ONE Stop: 12/07/20 00:58 Last Infusion: 12/07/20 01:20 Dose: 0 mls/hr Documented by: [id number] Admin: 12/07/20 00:51 Dose: 999 mls/hr Documented by: [id number] Potassium Chloride (K Dante / Wtr) 10 meq in 100 mls @ 100 mls/hr IV ONE ONE Stop: 12/07/20 03:10 Last Infusion: 12/07/20 03:27 Dose: 0 mls/hr Documented by: [id number] Admin: 12/07/20 02:27 Dose: 100 mls/hr Documented by: [id number] Potassium Chloride (Potassium Chloride Crtab 20 Meq Tabcr) 40 meq PO NOW STA Stop: 12/07/20 02:12 Last Admin: 12/07/20 02:27 Dose: 40 meq Documented by: [id number] Discharge Plan Visit Data Chief Complaint: Cardiac Assessment Stated Complaint: AFIB, HYPERTENSION ED Provider: Christiano Lisa Discharge Problem: Symptomatic bradycardia, Paroxysmal A-fib
[2020-12-07 01:41] LABS: Appearance Urine Clear (Clear); Bacteria Urine Automated 1+ (Negative); Bilirubin Urine Negative (Negative); Blood Urine Negative (Negative); Color Urine Yellow; Epithelial Cell Urine Auto 20-30 /lpf (0-5); Glucose Urine UA Negative (Negative); Ketones Urine Negative (Negative); Leukocyte Esterase Urine 2+ (Negative); Nitrite Urine Negative (Negative); Protein Urine Negative (Negative); RBC Urine Automated 0-4 /hpf (0-4); Specific Gravity Urine 1.023 (1.000-1.030); Urobilinogen Urine Negative (Negative); pH Urine 6.5 (4.5-7.5)
[2020-12-07 01:43] LABS: Hemoglobin 15.7 g/dL (12.0-16.0); Mean Corpuscular Hemoglobin 26.9 pg (25-34); Mean Corpuscular Hgb Conc 33.4 g/dL (32-36); Mean Corpuscular Volume 80.5 fL (80-100); Mean Platelet Volume 11.5 fL (7.4-10.4); Platelet Count 333 K/uL (130-400); RDW Coefficient of Variation 15.7 % (11.5-14.5); RDW Standard Deviation 45.9 fL (36.4-46.3); Red Blood Count 5.84 M/uL (4.2-5.4); White Blood Count 16.26 K/uL (4.8-10.8)
[2020-12-07 01:47] LABS: Basophils # (auto) 0.05 K/uL (0-0.2); Basophils % (auto) 0.3 %; Eosinophils # (auto) 0.28 K/uL (0-0.5); Eosinophils % (auto) 1.7 %; Immature Granulocytes # (auto) 0.04 K/uL (0.00-0.02); Immature Granulocytes % (auto) 0.2 %; Lymphocytes % (auto) 12.3 %; Monocytes # (auto) 1.34 K/uL (0.11-0.59); Monocytes % (auto) 8.2 %; Neutrophils # (auto) 12.55 K/uL (1.4-6.5); Neutrophils % (auto) 77.3 %
[2020-12-07 01:48] LABS: Alanine Aminotransferase 23 U/L (12-78); Albumin Level 3.7 gm/dl (3.4-5.0); Alkaline Phosphatase 107 U/L (45-117); BUN Creatinine Ratio 25.5 (10-20); Bilirubin,Total 0.4 mg/dl (0.2-1); Blood Urea Nitrogen 27 mg/dl (7-18); Calcium 8.9 mg/dl (8.5-10.1); Carbon Dioxide 28 mmol/L (21-32); Chloride 107 mmol/L (98-107); Est GFR (African American) 60.8 ml/min; Est GFR (Non-African American) 52.4 ml/min; Glucose 128 mg/dl (70-99); Lipase 103 U/L (73-393); Sodium 139 mmol/L (136-145); Total Protein 7.1 gm/dl (6.4-8.2); Troponin I < 0.015 ng/ml (0-0.045)
[2020-12-07 01:51] LABS: Partial Thromboplastin Time 26.5 Seconds (21.0-31.0)
[2020-12-07 02:05] LABS: Potassium 3.4 mmol/L (3.5-5.1)
[2020-12-07] MEDS ORDERED: POTASSIUM CHLORIDE / WTR 10 MEQ/100 ML PLCT IV ONE (02:11)
[2020-12-07] MEDS ORDERED: POTASSIUM CHLORIDE CRTAB 20 MEQ TABCR PO STA (02:11)
[2020-12-07 02:12] LABS: Aspartate Aminotransferase 9 U/L (15-37); Bilirubin Direct < 0.1 mg/dl (0-0.2); Magnesium 2.1 mg/dl (1.8-2.4)
--- NOTE | 2020-12-07 03:24 | History & Physical Report ---
Date of Service December 07, 2020 Assessment & Plan (1) Tachy-milagros syndrome: Plan: Tachy-milagros syndrome/paroxysmal atrial fibrillation/symptomatic bradycardia/hypertension- Patient had had a loop recorder implanted to follow with episodes of paroxysmal atrial fibrillation. However, her [employer] loop recorder revealed several episodes of heart rate down into the 30s, that were likely causing her most recent symptoms of lightheadedness and near syncope The patient will be admitted to telemetry for serial cardiac enzymes, serial EKG's, cardiac rhythm monitoring and a 2-D echocardiogram with Dopplers. Laboratory showed a potassium of 3.4, for which she received Klor-Con 40 mEq p.o., and 1K rider while in the ED. Reduce her diltiazem extended release from 240 mg in the morning to 120 mg in the morning to 120 mg p.o. twice daily. Continue flecainide 150 mg p.o. every 12 hours Hold HCTZ due to hypokalemia Continue aspirin 81 mg daily, losartan 50 mg p.o. every morning and spironolactone 25 mg p.o. every morning Consult her radiation technician Dr. Jackson (2) Paroxysmal A-fib: Plan: See above (3) Symptomatic bradycardia: Plan: See above (4) History of loop recorder: Plan: See above (5) Hypercholesterolemia: Plan: Continue rosuvastatin 5 mg daily (6) Chronic reflux esophagitis: Plan: Continue omeprazole 40 mg p.o. twice daily/pantoprazole 40 mg p.o. twice daily (7) Hypertension: Plan: See above (8) BERTRAM on CPAP: Plan: CPAP at bedtime as needed History of Present Illness Chief Complaint: The patient presents to the emergency department with worsening palpitations, lightheadedness, dizziness and blurry vision Primary Care Provider: Patricia Gillis MD The patient is a 70-year-old female with a past medical history including paroxysmal atrial fibrillation, lower extremity edema, history of loop recorder, polycythemia, nocturnal hypoxemia, BERTRAM on CPAP, hypertension, dyspnea exertion, hypercholesterolemia, right chronic reflux esophagitis and long-term anticoagulant use. She presents because the above symptoms. Analysis of her loop recording from Medtr[employer] device shows several episodes of bradycardia into the 30s. Allergies Allergy/AdvReac Type Severity Reaction Status Date / Time Penicillins Allergy Intermediate UPSET Verified 11/13/20 10:19 STOMACH - CAN TOLERATE IF NEEDED Sulfa (Sulfonamide Allergy Intermediate RASH/HIVES Verified 11/13/20 10:19 Antibiotics) NSAIDS (Non-Steroidal Allergy Unknown Unknown Verified 11/13/20 10:19 Anti-Inflamma codeine AdvReac Unknown PROJECTILE Verified 11/13/20 10:19 VOMITING,HEADACHE Home Medications Medication Instructions Recorded Confirmed Type calcium carbonate 600 mg calcium 600 mg PO BIDM 08/06/18 12/07/20 History (1,500 mg) tablet (Calcium) cholecalciferol (vitamin D3) 125 5,000 unit PO QAM 08/06/18 12/07/20 History mcg (5,000 unit) tablet (Vitamin D3) coenzyme Q10 100 mg capsule 200 mg PO QAM 08/06/18 12/07/20 History (CoQ-10) magnesium oxide 400 mg PO BID 08/17/18 12/07/20 History aspirin 81 mg tablet,delayed 81 mg PO DAILY 10/01/19 12/07/20 History release (Adult Low Dose Aspirin) albuterol sulfate 90 mcg/actuation 2 puffs INH Q6H PRN #18 gm 11/26/19 12/07/20 Rx aerosol inhaler (ProAir HFA) CPAP Machine #1 ea 02/08/20 11/13/20 Rx diclofenac sodium 1 % topical gel 2 g TOP QID #100 gm 03/29/20 12/07/20 Rx hydrochlorothiazide 25 mg tablet 25 mg PO DAILY #90 tab 05/09/20 12/07/20 Rx cetirizine 10 mg tablet (Zyrtec) 5 mg PO QPM PRN tab 05/22/20 12/07/20 History losartan 50 mg tablet 50 mg PO QAM #90 tab 06/20/20 12/07/20 Rx spironolactone 25 mg tablet 25 mg PO QAM #90 tab 06/22/20 12/07/20 Rx omeprazole 40 mg capsule,delayed See Rx Instructions .ROUTE 06/27/20 12/07/20 Rx release .COMPLEX #180 cap rosuvastatin 5 mg tablet 5 mg PO HS #30 tab 10/04/20 12/07/20 Rx diltiazem HCl 120 mg 120 mg PO HS #90 cap 10/19/20 12/07/20 Rx capsule,extended release 24 hr diltiazem HCl 240 mg See Rx Instructions .ROUTE 11/27/20 12/07/20 Rx capsule,extended release 24 hr .COMPLEX #90 capsule furosemide 20 mg tablet (Lasix) 20 mg PO Q OTHER DAY PRN #45 tab 11/27/20 12/07/20 Rx flecainide 150 mg tablet 150 mg PO Q12H #60 tab 11/29/20 12/07/20 Rx Past Med/Surg History Medical History (Updated 12/07/20 @ 05:42 by Pedro Tucker MD) Gastric ulcer GERD (gastroesophageal reflux disease) Low iron IV INFUSIONS PRN Migraine HX OF Osteoarthritis Psoas hematoma, left, secondary to anticoagulant therapy Pulmonary embolism OVER 20 YEARS AGO (CAUSED BY HORMONE REPLACEMENT THERAPY) Scoliosis Temporomandibular joint disorder Surgical History History of adenoidectomy History of bladder surgery History of dilatation and curettage History of esophagogastroduodenoscopy (EGD) History of hernia repair History of herniorrhaphy History of incision and drainage Of Skin Abscess History of knee surgery History of laparoscopy History of oophorectomy History of tonsillectomy History of tooth extraction History of total abdominal hysterectomy History of total hip arthroplasty LEFT Family History (Updated 11/29/20 @ 10:23 by Faraz Jackson MD) Father Atrial fibrillation COPD (chronic obstructive pulmonary disease) Mother Coronary heart disease Hx of CABG Grandfather (Maternal) Cerebral hemorrhage Sister Atrial fibrillation Leaky heart valve Celiac disease Son Myocardial infarction [place] at age 51 Denies family history of Ovarian cancer Prostate cancer Crohn's disease Breast cancer Colorectal cancer Social History Smoking Status: Never smoker Second Hand Exposure: Yes ( A CHILD); Hx Alcohol Use: Yes Alcohol type: wine Hx Substance Use: No Preferred Language: Citizen Of [place] Communication Ability: Effective Family Protection Specialist Required: No Beliefs That Will Affect Care: None marital status: Current Living Situation: Spouse current occupational status: retired Feels Safe at Home: Yes Dental Care, Regularly: Yes Physical Activity Frequency: Does not Exercise Physical Activity Frequency Comment: Due to hematoma Seatbelt Use: always Sunscreen Use: Yes Assistive Devices: Cane, CPAP and Glasses Review of Systems Review of Systems: The patient denies chest pain, lower extremity swelling, sore throat, fevers, chills, sweats, nausea, vomiting, diarrhea , constipation, abdominal pain, pelvic pain, blood in urine or stool, dysuria, urinary frequency or urgency, memory loss, loss of consciousness, rash, abnormal bruising or bleeding, focal weakness, numbness or tingling in arms or legs, generalized arthralgias or myalgias, back or neck pain, or night sweats. The review of systems is otherwise negative other than for that already noted above, and at least 10 systems have been reviewed. Physical Exam Physical Exam: The patient is awake, alert and oriented 3, well developed and well nourished, normocephalic and atraumatic, lying in bed and in no acute distress. HEENT--PERRL, EOMI, mucous membranes and oropharynx dry. Neck--supple. No JVD. No bruits. Thyroid normal, trachea midline, no adenopathy. Heart--normal S1 and S2, with PVCs. Intermittent atrial fibrillation. No murmurs, rubs or gallops. Lungs--clear bilaterally, no respiratory distress, no accessory muscle use. Abdomen--normal bowel sounds and soft. Nontender. Nondistended. Obese Extremities--no cyanosis or clubbing. No edema. Dermatologic--normal skin turgor, normal color, no abnormal lymph nodes, no rash. Neurologic--cranial nerves II through XII grossly intact. Rheumatologic--normal range of motion. Psychiatric--normal affect. Results & Data Results & Data ([facility]) Vital Signs (Past 12 Hours) Vital Signs Temp Pulse Resp BP Pulse Ox 12/07/20 02:03 61 20 135/44 L 94 12/06/20 23:39 57 L 22 138/81 12/06/20 23:30 98.4 F 58 L 19 145/67 H 94 Laboratory Results Laboratory Results WBC 16.26 K/uL (4.8-10.8) H 12/07/20 00:14 RBC 5.84 M/uL (4.2-5.4) H 12/07/20 00:14 Hgb 15.7 g/dL (12.0-16.0) 12/07/20 00:14 Hct 47.0 % (37-47) 12/07/20 00:14 MCV 80.5 fL (80-100) 12/07/20 00:14 MCH 26.9 pg (25-34) 12/07/20 00:14 MCHC 33.4 g/dL (32-36) 12/07/20 00:14 RDW Std Deviation 45.9 fL (36.4-46.3) 12/07/20 00:14 RDW Coeff of Jeffery 15.7 % (11.5-14.5) H 12/07/20 00:14 Plt Count 333 K/uL (130-400) 12/07/20 00:14 MPV 11.5 fL (7.4-10.4) H 12/07/20 00:14 Immature Gran % (Auto) 0.2 % 12/07/20 00:14 Neut % (Auto) 77.3 % 12/07/20 00:14 Lymph % (Auto) 12.3 % 12/07/20 00:14 Starr % (Auto) 8.2 % 12/07/20 00:14 Eos % (Auto) 1.7 % 12/07/20 00:14 Baso % (Auto) 0.3 % 12/07/20 00:14 Neut # (Auto) 12.55 K/uL (1.4-6.5) H 12/07/20 00:14 Lymph # (Auto) 2.00 K/uL (1.2-3.4) 12/07/20 00:14 Starr # (Auto) 1.34 K/uL (0.11-0.59) H 12/07/20 00:14 Eos # (Auto) 0.28 K/uL (0-0.5) 12/07/20 00:14 Baso # (Auto) 0.05 K/uL (0-0.2) 12/07/20 00:14 Immature Gran # (Auto) 0.04 K/uL (0.00-0.02) H 12/07/20 00:14 PT 10.0 Seconds (9.0-12.0) 12/07/20 01:33 INR 1.0 (0.9-1.1) 12/07/20 01:33 APTT 26.5 Seconds (21.0-31.0) 12/07/20 01:33 PTT Ratio 1.0 12/07/20 01:33 Sodium 139 mmol/L (136-145) 12/07/20 00:14 Potassium 3.4 mmol/L (3.5-5.1) L 12/07/20 01:34 Chloride 107 mmol/L (98-107) 12/07/20 00:14 Carbon Dioxide 28 mmol/L (21-32) 12/07/20 00:14 Anion Gap 4.0 (3-11) 12/07/20 00:14 BUN 27 mg/dl (7-18) H 12/07/20 00:14 Creatinine 1.06 mg/dl (0.6-1.2) 12/07/20 00:14 Est Cr Clr Drug Dosing Not Reportable 12/07/20 00:14 Est GFR ( Amer) 60.8 ml/min 12/07/20 00:14 Est GFR (Non-Af Amer) 52.4 ml/min 12/07/20 00:14 BUN/Creatinine Ratio 25.5 (10-20) H 12/07/20 00:14 Glucose 128 mg/dl (70-99) H 12/07/20 00:14 Calcium 8.9 mg/dl (8.5-10.1) 12/07/20 00:14 Magnesium 2.1 mg/dl (1.8-2.4) 12/07/20 01:34 Total Bilirubin 0.4 mg/dl (0.2-1) 12/07/20 00:14 Direct Bilirubin < 0.1 mg/dl (0-0.2) 12/07/20 01:34 AST 9 U/L (15-37) L 12/07/20 01:34 ALT 23 U/L (12-78) 12/07/20 00:14 Alkaline Phosphatase 107 U/L (45-117) 12/07/20 00:14 Troponin I < 0.015 ng/ml (0-0.045) 12/07/20 00:14 Total Protein 7.1 gm/dl (6.4-8.2) 12/07/20 00:14 Albumin 3.7 gm/dl (3.4-5.0) 12/07/20 00:14 Lipase 103 U/L (73-393) 12/07/20 00:14 TSH 4.200 uIu/ml (0.300-4.500) 12/07/20 00:14 Urine Color Yellow 12/07/20 01:19 Urine Appearance Clear (Clear) 12/07/20 01:19 Urine pH 6.5 (4.5-7.5) 12/07/20 01:19 Ur Specific [place] 1.023 (1.000-1.030) 12/07/20 01:19 Urine Protein Negative (Negative) 12/07/20 01:19 Urine Glucose (UA) Negative (Negative) 12/07/20 01:19 Urine Ketones Negative (Negative) 12/07/20 01:19 Urine Blood Negative (Negative) 12/07/20 01:19 Urine Nitrite Negative (Negative) 12/07/20 01:19 Urine Bilirubin Negative (Negative) 12/07/20 01:19 Urine Urobilinogen Negative (Negative) 12/07/20 01:19 Ur Leukocyte Esterase 2+ (Negative) H 12/07/20 01:19 Urine WBC (Auto) 10-30 /hpf (0-5) H 12/07/20 01:19 Urine RBC (Auto) 0-4 /hpf (0-4) 12/07/20 01:19 U Hyaline Cast (Auto) 1-5 /lpf (0-5) 12/07/20 01:19 U Epithel Cells (Auto) 20-30 /lpf (0-5) H 12/07/20 01:19 Urine Bacteria (Auto) 1+ (Negative) H 12/07/20 01:19 COVID-19 Eval Order Covid19 at [facility] 12/07/20 00:40 SARS-CoV-2 (PCR) NEGATIVE (Negative) 12/07/20 00:40 Code Status & VTE Plan Code Status Full code VTE Prophylaxis Plan VTE Prophylaxis will be ordered: Yes PG Care Time/CCT Total # of Minutes Spent Total Time Spent with Patient: Total time spent is greater than 50% in coordination of care (as documented) at patient's floor/unit and/or counseling patient: Coding Level of Care Code 53588 Initial Inpt Care Lvl 3 Diagnoses Tachy-milagros syndrome I49.5 Paroxysmal A-fib I48.0 Symptomatic bradycardia R00.1 History of loop recorder Z98.890 Hypercholesterolemia E78.00 Chronic reflux esophagitis K21.0 Hypertension I10 Hypertension type: primary hypertension BERTRAM on CPAP G47.33; Z99.89 (1) Hypertension Hypertension type: primary hypertension Qualified Code(s): I10 - Essential (primary) hypertension
[2020-12-07] MEDS ORDERED: ONDANSETRON INJ 2 MG/ML 2 ML VIAL IV PRN (05:08)
[2020-12-07] MEDS ORDERED: CETIRIZINE HCL 10 MG TABLET PO PRN (05:08)
[2020-12-07] MEDS ORDERED: NITROGLYCERIN SL 0.4 MG/TAB TAB SL PRN (05:08)
[2020-12-07] MEDS ORDERED: DICLOFENAC SOD 1% GEL 100 GM TUBE EXT PRN (05:08)
--- NOTE | 2020-12-07 06:57 | XRay Report ---
XR chest 1V portable CLINICAL HISTORY: afib, RVR COMPARISON STUDY: Chest radiograph August 06, 2018. FINDINGS: Lung volumes are normal. No pneumothorax or pleural effusion is noted. There is a moderate sized hiatal hernia. Mild cardiomegaly is noted. There is pulmonary vascular congestion. There may be mild left basilar opacity. IMPRESSION: 1. Pulmonary vascular congestion without overt pulmonary edema. 2. Moderate sized hiatal hernia. 3. Mild cardiomegaly. ACT 112: Negative or not required by law. Electronically signed by: Rj Sin M.D. 12/07/2020 6:56 AM
--- NOTE | 2020-12-07 07:37 | Hospitalist Progress Note ---
Date of Service December 07, 2020 Assessment & Plan (1) Tachy-milagros syndrome: Plan: Tachy-milagros syndrome/paroxysmal atrial fibrillation/symptomatic bradycardia/hypertension- Patient had had a loop recorder implanted to follow with episodes of paroxysmal atrial fibrillation. 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 every 12 hours Hold HCTZ due to hypokalemia Continue aspirin 81 mg daily, losartan 50 mg p.o. every morning and spironolactone 25 mg p.o. every morning (2) Paroxysmal A-fib: Plan: See above (3) Symptomatic bradycardia: Plan: See above (4) History of loop recorder: Plan: See above (5) Hypercholesterolemia: Plan: Continue rosuvastatin 5 mg daily (6) Chronic reflux esophagitis: Plan: Continue omeprazole 40 mg p.o. twice daily/pantoprazole 40 mg p.o. twice daily (7) Hypertension: Plan: See above (8) BERTRAM on CPAP: Plan: CPAP at bedtime as needed Admission and Anticipated Discharge Date Admission Date: December 07, 2020 Subjective Patient presented to the emergency department with palpitations and li ghtheadedness found to be bradycardic at times. Implanted loop recorder did show significant episodes of bradycardia Results & Data Results & Data ([facility]) Vital Signs (Past 12 Hours) Vital Signs Temp Pulse Pulse Resp BP BP Pulse Ox 12/07/20 04:38 58 L 20 138/55 L 94 12/07/20 04:01 63 21 145/65 H 95 12/07/20 02:03 61 20 135/44 L 94 12/06/20 23:39 57 L 22 138/81 12/06/20 23:30 98.4 F 58 L 19 145/67 H 94 PG Care Time/CCT Total # of Minutes Spent Total Time Spent with Patient: Total time spent is greater than 50% in coordination of care (as documented) at patient's floor/unit and/or counseling patient: Coding Level of Care Code None Diagnoses Tachy-milagros syndrome I49.5 Paroxysmal A-fib I48.0 Symptomatic bradycardia R00.1 History of loop recorder Z98.890 Hypercholesterolemia E78.00 Chronic reflux esophagitis K21.0 Hypertension I10 Hypertension type: primary hypertension BERTRAM on CPAP G47.33; Z99.89 (1) Hypertension Hypertension type: primary hypertension Qualified Code(s): I10 - Essential (primary) hypertension
[2020-12-07] MEDS: LOSARTAN POTASSIUM 50 MG TAB PO SCH (08:08)
[2020-12-07] MEDS: CALCIUM 600MG + VIT D 400 IU TAB PO SCH ×2 (08:08→17:30)
[2020-12-07] MEDS: MAGNESIUM OXIDE 400 MG TAB PO SCH ×2 (08:08→20:42)
[2020-12-07] MEDS: FLECAINIDE ACETATE 100 MG TABLET PO SCH ×2 (08:08→20:48)
[2020-12-07] MEDS: ASPIRIN 81 MG ECTAB PO SCH (08:09)
[2020-12-07] MEDS: PANTOprazole 40 MG TAB PO SCH ×2 (08:11→20:43)
[2020-12-07] MEDS ORDERED: NON-FORMULARY MEDICATION (Coenzyme Q10 [Coq-10] 100 mg Capsule) PO SCH (09:00)
[2020-12-07] MEDS ORDERED: dilTIAZem HCL 120 MG CAPCR PO SCH ×2 (09:00→21:00)
[2020-12-07] MEDS: SPIRONOLACTONE 25 MG TAB PO SCH (09:37)
[2020-12-07] MEDS: CHOLECALCIFEROL 1,000 UNITS 25 MCG TAB PO SCH (09:38)
--- NOTE | 2020-12-07 10:15 | Cardiology Consultation ---
Date of Consultation December 07, 2020 Assessment & Plan (1) Symptomatic bradycardia: She presents now with symptomatic bradycardia (sinus bradycardia with lightheadedness) and heart rates as low as about 30 bpm. Some of this is very likely medication induced although she does have tachybradycardia syndrome, however she continues to have palpitations and atrial fibrillation and needs medications for rate control. At this point we do not have any option other than pacemaker implantation. I discussed the indications, procedure, risks and alternatives of pacemaker implantation with her and her and they understand and she agrees to proceed. We will plan on a pacemaker this afternoon at about 3:00. Consent obtained. (2) Paroxysmal A-fib: Her atrial fibrillation appears to be reasonably well controlled on her current medications although she does still have symptoms and may still have some atrial fibrillation. If we cannot control it we may have to use amiodarone. The pacemaker will have algorithms designed to terminate atrial f ibrillation and may help in that regard, additionally sometimes supporting the atrial rate helps control atrial fibrillation. (3) Tachy-milagros syndrome: She has tachybradycardia syndrome manifest by paroxysmal atrial fibrillation and sinus bradycardia. Some of the bradycardia may be medication induced but they required. (4) History of loop recorder: She has a loop recorder in place, that will be removed when the pacemaker is implanted. (5) Anticoagulant long-term use: We have not been using an anticoagulant due to her risk of bleeding, our approach is to try to control her rhythm and that has been somewhat successful although not entirely so. The pacemaker may help with rhythm control. She is not on an anticoagulant at this time. History of Present Illness Attending Physician: Pedro Tucker MD History of Present Illness This is a 70-year-old woman who has a history of atrial fibrillation dating back to about 2006. The first documented episode was in January of 2007 during a hospitalization for an infected hip prosthesis. Subsequently she has continued to have intermittent episodes of atrial fibrillation that have always self terminated and lasted from about one half hour up to 12 hours. She was admitted to [facility] on May 06, 2010 with an episode that lasted about 12 hours and was quite rapid, her heart rate was documented to be about 176 beats per minute and she had some ST-T abnormalities. She also gets chest tightness occasionally with the palpitations which could represent angina alt cheryl a stress echo (February 15, 2010) was negative for ischemia. She was treated with increasing her rate control medications, and addition of flecainide to try to minimize the frequency of the episodes, and anticoagulation initially with aspirin as outlined below and later with anticoagulants. She was hospitalized with chest discomfort, that appeared to be due to esophageal spasm. This appeared to be associated with a vagal event resulting in bradycardia, endoscopy was unrevealing but a barium swallow did demonstrate spasm. We therefore treated this with diltiazem, on 180 mg daily she had improvement but did have recurrence therefore the dose was increased to 240 mg daily. She also has had hypertension, both here and at home when she takes it. I did add lisinopril 5 mg daily on 06/10/2014 and that has helped with her blood pressure. She developed a dry cough around that time possibly due to her BENJAMIN- inhibitor. We therefore switched this to losartan which seems to be helping with both her blood pressure and her cough. I had initially started flecainide 50 mg twice a day for control of her atrial fibrillation but increased it to 100 milligrams twice a day, she felt she didn't tolerate it and therefore dropped it back to 50 b.i.d. but then with recurrent symptoms she gradually increased the dose to 100 mg in the morning and 50 mg a evening, subsequently to 100 mg twice a day. We discussed anticoagulation but she had preferred to use aspirin, in part because of the high cost of the newer agents. With development of gastric ulcers that was not a option, therefore we had planned on starting Eliquis 5 mg twice daily. That was prescribed but she did not start it due to cost and concern about bleeding. She had a number of endoscopies subsequently and apparently still has a nonhealed ulcer. She was also worried about the risk of bleeding with her ulcers, and additionally she needs back injections every 9-12 months and was concerned about the risk of bleeding at those times. She therefore did not start the medication, however ultimately she did take Xarelto 20 mg daily starting November 05, 2017. She also has hypercholesterolemia and did agree to starting simvastatin, this was started 06/10/2014. Subsequently this was changed to rosuvastatin 5 mg at bedtime. She was having dyspnea on exertion and dependent edema when I saw her February 06, 2018, therefore I arranged a dobutamine stress echo which was done March 08, 2018 and was negative for ischemia and her left ventricular function was normal with normal wall motion and mild left ventricular hypertrophy. This continued but did not worsen. She had some difficulty with bleeding, it started with a left leg hematoma from an injury in the spring 2018 which per her description ended up with cellulitis, that ultimately resolved. Subsequently I believe in December of 2018 she pulled a muscle in her left leg and ended up with a large groin hematoma, that took a long time to resolve. She then presented with recurrent left groin discomfort on June 08, 2019, a vascular ultrasound on June 09, 2019 showed a complex hypoechoic collection in the iliopsoas muscle, which seemed somewhat larger. She was on Eliquis 5 mg twice a day at the time and was not having symptoms of atrial fibrillation. With her [id number] score of 3 (age, female sex and hypertension) we were hesitant to leave her off of anticoagulation but were hesitant since we did not really know her atrial fibrillation burden. I therefore implanted a loop recorder on June 10, 2019. I did have her evaluated at [facility] for the use of a watchman device, she was evaluated on October 30, [address] Hoang. She was deemed to be a candidate for the procedure, however requires anticoagulation for at least 6 weeks with the possibility of remaining on an anticoagulant longer. It was left for her to contact [facility] if she wanted to proceed. In follow-up she has continued to have episodes of atrial fibrillation of which she is unaware. She has remained off of anticoagulation, however she is now back on aspirin (I believe due to a diagnosis of polycythemia not for the atrial fibrillation). She presents now with intermittent lightheadedness and documentation of heart rates as low as 30 bpm which appear to be due to sinus arrest. On presentation she was in a junctional rhythm with occasional sinus speech which did conduct. She did not appear to be in heart block. Allergies Allergy/AdvReac Type Severity Reaction Status Date / Time Sulfa (Sulfonamide Allergy Intermediate RASH/HIVES Verified 11/13/20 10:19 Antibiotics) NSAIDS (Non-Steroidal Allergy Unknown Unknown Verified 11/13/20 10:19 Anti-Inflamma Penicillins AdvReac Intermediate UPSET Verified 12/07/20 12:04 STOMACH - CAN TOLERATE IF NEEDED codeine AdvReac Unknown PROJECTILE Verified 11/13/20 10:19 VOMITING,HEADACHE Home Medications Medication Instructions Recorded Confirmed Type calcium carbonate 600 mg calcium 600 mg PO BIDM 08/06/18 12/07/20 History (1,500 mg) tablet (Calcium) cholecalciferol (vitamin D3) 125 5,000 unit PO QAM 08/06/18 12/07/20 History mcg (5,000 unit) tablet (Vitamin D3) coenzyme Q10 100 mg capsule 200 mg PO QAM 08/06/18 12/07/20 History (CoQ-10) magnesium oxide 400 mg PO BID 08/17/18 12/07/20 History aspirin 81 mg tablet,delayed 81 mg PO DAILY 10/01/19 12/07/20 History release (Adult Low Dose Aspirin) albuterol sulfate 90 mcg/actuation 2 puffs INH Q6H PRN #18 gm 11/26/19 12/07/20 Rx aerosol inhaler (ProAir HFA) CPAP Machine #1 ea 02/08/20 11/13/20 Rx diclofenac sodium 1 % topical gel 2 g TOP QID #100 gm 03/29/20 12/07/20 Rx hydrochlorothiazide 25 mg tablet 25 mg PO DAILY #90 tab 05/09/20 12/07/20 Rx cetirizine 10 mg tablet (Zyrtec) 5 mg PO QPM PRN tab 05/22/20 12/07/20 History losartan 50 mg tablet 50 mg PO QAM #90 tab 06/20/20 12/07/20 Rx spironolactone 25 mg tablet 25 mg PO QAM #90 tab 06/22/20 12/07/20 Rx omeprazole 40 mg capsule,delayed See Rx Instructions .ROUTE 06/27/20 12/07/20 Rx release .COMPLEX #180 cap rosuvastatin 5 mg tablet 5 mg PO HS #30 tab 10/04/20 12/07/20 Rx diltiazem HCl 120 mg 120 mg PO HS #90 cap 10/19/20 12/07/20 Rx capsule,extended release 24 hr diltiazem HCl 240 mg See Rx Instructions .ROUTE 11/27/20 12/07/20 Rx capsule,extended release 24 hr .COMPLEX #90 capsule furosemide 20 mg tablet (Lasix) 20 mg PO Q OTHER DAY PRN #45 tab 11/27/20 12/07/20 Rx flecainide 150 mg tablet 150 mg PO Q12H #60 tab 11/29/20 12/07/20 Rx Patient History Medical History (Updated 12/07/20 @ 05:42 by Pedro Tucker MD) Gastric ulcer GERD (gastroesophageal reflux disease) Low iron IV INFUSIONS PRN Migraine HX OF Osteoarthritis Psoas hematoma, left, secondary to anticoagulant therapy Pulmonary embolism OVER 20 YEARS AGO (CAUSED BY HORMONE REPLACEMENT THERAPY) Scoliosis Temporomandibular joint disorder Surgical History History of adenoidectomy History of bladder surgery History of dilatation and curettage History of esophagogastroduodenoscopy (EGD) History of hernia repair History of herniorrhaphy History of incision and drainage Of Skin Abscess History of knee surgery History of laparoscopy History of oophorectomy History of tonsillectomy History of tooth extraction History of total abdominal hysterectomy History of total hip arthroplasty LEFT Family History (Updated 11/29/20 @ 10:23 by Faraz Jackson MD) Father Atrial fibrillation COPD (chronic obstructive pulmonary disease) Mother Coronary heart disease Hx of CABG Grandfather (Maternal) Cerebral hemorrhage Sister Atrial fibrillation Leaky heart valve Celiac disease Son Myocardial infarction [place] at age 51 Denies family history of Ovarian cancer Prostate cancer Crohn's disease Breast cancer Colorectal cancer Social History Smoking Status: Never smoker Second Hand Exposure: Yes ( A CHILD); Hx Alcohol Use: Yes Alcohol type: wine Hx Substance Use: No Preferred Language: Armenian Communication Ability: Effective Roll Icer Required: No Beliefs That Will Affect Care: None marital status: Current Living Situation: Spouse current occupational status: retired Feels Safe at Home: Yes Dental Care, Regularly: Yes Physical Activity Frequency: Does not Exercise Physical Activity Frequency Comment: Due to hematoma Seatbelt Use: always Sunscreen Use: Yes Assistive Devices: Cane, CPAP and Glasses Physical Exam Physical Exam: Constitutional: Alert, cooperative and in no distress. HEENT: Unremarkable Neck: No jugular venous distention, carotid pulses are normal and equal bilaterally without bruits. Pulmonary: Clear to auscultation bilaterally. Cardiac: Regular slow rhythm with premature beats and no murmur, gallop or rub. Abdomen: Soft, nontender with normal bowel sounds. Extremities: No edema. Distal pulses intact. Neurologic: No focal findings. Gait is steady. Skin: The device site is well-healed without erythema, swelling or tenderness. No rash, ecchymoses or petechiae. Results & Data ([facility]) Vital Signs (Past 12 Hours) Vital Signs Temp Pulse Pulse Resp BP BP Pulse Ox 12/07/20 08:00 18 98/48 L 12/07/20 07:51 47 L 12/07/20 04:38 58 L 20 138/55 L 94 12/07/20 04:01 63 21 145/65 H 95 12/07/20 02:03 61 20 135/44 L 94 12/06/20 23:39 57 L 22 138/81 12/06/20 23:30 36.9 C 58 L 19 145/67 H 94 Laboratory Results Cardiac Enzymes 12/07/20 12/07/20 12/07/20 Range/Units 00:14 01:34 05:25 AST 9 L (15-37) U/L Troponin I < 0.015 < 0.015 (0-0.045) ng/ml Coagulation 12/07/20 Range/Units 01:33 PT 10.0 (9.0-12.0) Seconds APTT 26.5 (21.0-31.0) Seconds CBC 12/07/20 12/07/20 Range/Units 00:14 11:07 WBC 16.26 H 11.97 H (4.8-10.8) K/uL RBC 5.84 H 5.21 (4.2-5.4) M/uL Hgb 15.7 13.7 (12.0-16.0) g/dL Hct 47.0 41.9 (37-47) % Plt Count 333 308 (130-400) K/uL Neut # (Auto) 12.55 H 9.19 H (1.4-6.5) K/uL Lymph # (Auto) 2.00 1.13 L (1.2-3.4) K/uL Walker # (Auto) 1.34 H 1.46 H (0.11-0.59) K/uL Eos # (Auto) 0.28 0.14 (0-0.5) K/uL Baso # (Auto) 0.05 0.03 (0-0.2) K/uL Comprehensive Metabolic Panel 12/07/20 12/07/20 Range/Units 00:14 01:34 Sodium 139 (136-145) mmol/L Potassium 3.4 L (3.5-5.1) mmol/L Chloride 107 (98-107) mmol/L Carbon Dioxide 28 (21-32) mmol/L BUN 27 H (7-18) mg/dl Creatinine 1.06 (0.6-1.2) mg/dl Glucose 128 H (70-99) mg/dl Calcium 8.9 (8.5-10.1) mg/dl Direct Bilirubin < 0.1 (0-0.2) mg/dl AST 9 L (15-37) U/L ALT 23 (12-78) U/L Alkaline Phosphatase 107 (45-117) U/L Total Protein 7.1 (6.4-8.2) gm/dl Albumin 3.7 (3.4-5.0) gm/dl Intake and Output 12/07/20 12/07/20 12/07/20 06:59 14:59 22:59 Intake Total 600 / 600 Output Total 200 / 200 Balance 600 / 600 -200 / -200 Intake: IV 600 / 600 Potassium Chloride / Wtr 10 meq 100 / 100 In 100 ml @ 100 mls/hr IV ONE ONE Rx#:[id number] Sodium Chloride 0.9% 1000ML 500 500 / 500 ml @ 999 mls/hr IV .Q31M ONE Rx#:[id number] Output: Other 200 / 200 Other: Weight 97.976 kg Weight Measurement Method Built in [facility] Diagnostic Findings Telemetry: Extreme sinus bradycardia with predominantly a junctional rhythm, occasional AV conduction from her sinus bradycardia. PG Care Time/CCT Total # of Minutes Spent Total Time Spent with Patient: Total time spent is greater than 50% in coordination of care (as documented) at patient's floor/unit and/or counseling patient: Coding Level of Care Code 24755 Initial Inpt Care Lvl 3 Diagnoses Symptomatic bradycardia R00.1 Paroxysmal A-fib I48.0 Tachy-milagros syndrome I49.5 History of loop recorder Z98.890 Anticoagulant long-term use Z79.01
[2020-12-07] MEDS ORDERED: LACTATED RINGER'S 1,000 ML IV SCH (10:45)
[2020-12-07 11:16] LABS: Basophils # (auto) 0.03 K/uL (0-0.2); Basophils % (auto) 0.3 %; Eosinophils # (auto) 0.14 K/uL (0-0.5); Eosinophils % (auto) 1.2 %; Hematocrit (blood only) 41.9 % (37-47); Hemoglobin 13.7 g/dL (12.0-16.0); Immature Granulocytes # (auto) 0.02 K/uL (0.00-0.02); Immature Granulocytes % (auto) 0.2 %; Lymphocytes # (auto) 1.13 K/uL (1.2-3.4); Lymphocytes % (auto) 9.4 %; Mean Corpuscular Hemoglobin 26.3 pg (25-34); Mean Corpuscular Hgb Conc 32.7 g/dL (32-36); Mean Corpuscular Volume 80.4 fL (80-100); Mean Platelet Volume 10.6 fL (7.4-10.4); Monocytes # (auto) 1.46 K/uL (0.11-0.59); Monocytes % (auto) 12.2 %; Neutrophils # (auto) 9.19 K/uL (1.4-6.5); Neutrophils % (auto) 76.7 %; Platelet Count 308 K/uL (130-400); RDW Coefficient of Variation 15.7 % (11.5-14.5); RDW Standard Deviation 45.7 fL (36.4-46.3); Red Blood Count 5.21 M/uL (4.2-5.4); White Blood Count 11.97 K/uL (4.8-10.8)
[2020-12-07] MEDS ORDERED: LORazepam 0.5 MG/1 ML VIAL IV STA (13:55)
[2020-12-07] MEDS ORDERED: WATER, STERILE FOR INJ 10 ML VIAL ONE (14:18)
[2020-12-07] MEDS ORDERED: LIDOCAINE 1% LOCAL 20 ML VIAL ONE (14:18)
[2020-12-07] MEDS ORDERED: VANCOMYCIN HCL 1000MG/20ML VIAL ONE (14:19)
[2020-12-07] MEDS ORDERED: BACITRACIN OINT 0.9 GM PKT ONE (14:19)
--- NOTE | 2020-12-07 14:59 | Pre Anesthesia Assessment ---
Date of Service December 07, 2020 Pre Sedation Assessment Vital Signs Temp Pulse Pulse Resp BP BP Pulse Ox 12/07/20 14:54 42 L 16 12/07/20 13:33 36.9 C 41 L 17 127/63 94 12/07/20 10:17 67 18 127/69 12/07/20 10:00 68 26 H 127/69 12/07/20 08:00 49 L 22 98/48 L 98/48 L 93 12/07/20 07:51 47 L 12/07/20 07:30 67 23 113/57 L 94 12/07/20 07:00 46 L 23 139/73 95 12/07/20 06:30 44 L 18 134/70 94 12/07/20 06:00 46 L 23 110/55 L 93 12/07/20 05:30 54 L 19 128/60 94 12/07/20 04:38 58 L 20 138/55 L 94 12/07/20 04:01 63 21 145/65 H 95 12/07/20 02:03 61 20 135/44 L 94 12/06/20 23:39 57 L 22 138/81 12/06/20 23:30 36.9 C 58 L 19 145/67 H 94 Cardiovascular + regular rate and + bradycardic Pre-Sedation Airway Assessment Smoking Status: Never smoker Short, Thick Neck: No Thyromental Distance: > or= 3.5 Finger Breadths Oral Cavity: + WNL Mallampati Class: III ASA: ASA3 NPO Status Date of Last Intake of Fluids: 12/07/20 Time of Last Intake of Fluids: 08:00 Date of Last Intake of Solid Food: 12/07/20 Time of Last Intake of Solid Foods: 08:00 Notes The planned sedation has been discussed with the patient. Informed Consent was obtained. I have identified the patient, determined the appropriateness of sedation and have assessed the patient immediately prior to the procedure. All medicine(s) and interventions are by my order.
[2020-12-07] MEDS ORDERED: fentaNYL citrate 100 MCG/2 ML VIAL ONE ×2 (15:03→16:07)
[2020-12-07] MEDS ORDERED: MIDAZOLAM HCL 5 MG/ML 1 ML VIAL ONE (15:03)
[2020-12-07] MEDS ORDERED: MIDAZOLAM HCL 1 MG/ML 2ML VIAL ONE (16:07)
--- NOTE | 2020-12-07 16:43 | Electrophysiology Report ---
Date of Service December 07, 2020 Electrophysiology Procedure Electrophysiology Procedure Report Preoperative diagnosis: Sick sinus syndrome with symptomatic bradycardia Postoperative diagnosis: Same Procedure: Dual-chamber pacemaker implantation Linq explant Surgeon: Faraz Jackson MD Estimated blood loss: 20 cc Complications: None Disposition: Field Collector recovery Procedure details: After obtaining informed consent for the procedure, the patient was brought to the laboratory and prepped and draped in the standard sterile manner. The left prepectoral region was anesthetized with 1% lidocaine local anesthetic and left axillary venipuncture was performed by percutaneous technique and a guidewire placed through the left subclavian vein into the superior vena cava. The area was further infiltrated with 1% lidocaine local anesthetic and a 5 cm incision was made parallel to the left clavicle and 2 cm below it and carried down to the anterior pectoralis fascia. A pacemaker pocket was formed by blunt dissection anterior to the pectoralis fascia and a vancomycin-soaked sponge was placed in the pocket. An 8 Albanian Medtronic lead introducer was placed over the guidewire into the left subclavian vein, the dilator and guidewire were removed and a bipolar active fixation steroid tipped ventricular lead was advanced through the introducer into the superior vena cava. A guidewire was placed through the introducer and the introducer was stripped from the lead and guidewire. Another 8 Albanian Medtronic lead introducer was placed over the guidewire into the left subclavian vein, the dilator and guidewire were removed and a bipolar active fixation steroid tipped atrial lead was advanced through the introducer into the superior vena cava. A guidewire was placed back through the introducer and the introducer was stripped from the lead and guidewire. Using a curved stylette the ventricular lead was advanced through the right ventricular outflow tract into the pulmonary artery and then using a straight stylette was positioned in the right ventricular apex. The screw was extended fixing the lead in position. Pacing and sensing thresholds were evaluated in bipolar configuration and are recorded on the implant data sheet. Using a curved stylette the atrial lead was positioned in the region of the atrial appendage and the screw extended fixing the lead in position. Pacing and sensing thresholds were evaluated in bipolar configuration and are recorded on the implant data sheet. Once the leads were in position they were attached to the anterior pectoralis fascia using 2 sutures of 2-0 silk around each lead collar. The vancomycin- soaked sponge was removed from the pocket, hemostasis was obtained, the pacemaker was attached to the leads and placed in the pocket with the leads coiled beneath it. The incision was closed with a running double subcutaneous closure of 3-0 Vicryl absorbable suture, followed by running subcuticular skin closure of 4-0 Vicryl absorbable suture. Bacitracin ointment was placed on the incision and a dressing applied. The area near the loop recorder implantation site was infiltrated with 1% lidocaine local anesthetic and a 1 cm incision was made through the old implant scar and carried down to the loop recorder. The loop recorder was dissected free of tissue and explanted. The incision was closed with a subcutaneous continuous closure of 4-0 Vicryl followed by running subcuticular skin closure of 4-0 Vicryl. Steri-Strips were applied and bacitracin ointment was placed on the incision. A dressing was applied. [facility] Electrophysiology codes Indication for Procedure (1) Tachy-milagros syndrome: Pacing Procedure 1: Pacin Insert/Replace Pacer A & V Implantable Monitors Procedure 1: Implantable Monitors: [id number] Loop Recorder Explant PG Moderate Sedation Codes Moderate Sedation Codes Procedure 1: Sedation/Anesthesia: 04683 Mod Sedation by the same physician;Init15 Min Child Age 5 & Up Procedure 2: Sedation/Anesthesia: 33404 Mod Sedation by the same physician; Ea [id number] Minutes
[2020-12-07] MEDS ORDERED: dilTIAZem HCL 240 MG CAPCR PO SCH (16:45)
--- NOTE | 2020-12-07 16:46 | Electrocardiogram Report ---
Test Reason : Blood Pressure : / mmHG Vent. Rate : 055 BPM Atrial Rate : 050 BPM P-R Int : 000 ms QRS Dur : 106 ms QT Int : 470 ms P-R-T Axes : 000 015 009 degrees QTc Int : 449 ms Junctional rhythm Abnormal ECG When compared with ECG of 06-AUG-2018 17:36, Junctional rhythm has replaced Sinus rhythm Confirmed by Nik Glasgow ([id number]) on 12/07/2020 4:46:00 PM Referred By: REFERRED SELF Confirmed By:Moustapha Glasgow
--- NOTE | 2020-12-07 17:07 | Post Anesthesia Assessment ---
Date of Service December 07, 2020 Post Sedation Assessment Vital Signs Temp Pulse Pulse Resp BP BP Pulse Ox 12/07/20 16:42 61 177/99 H 92 12/07/20 16:30 60 20 110/62 94 12/07/20 15:27 45 L 12/07/20 14:54 42 L 16 12/07/20 13:33 36.9 C 41 L 17 127/63 94 12/07/20 10:17 67 18 127/69 12/07/20 10:00 68 26 H 127/69 12/07/20 08:00 49 L 22 98/48 L 98/48 L 93 12/07/20 07:51 47 L 12/07/20 07:30 67 23 113/57 L 94 12/07/20 07:00 46 L 23 139/73 95 12/07/20 06:30 44 L 18 134/70 94 12/07/20 06:00 46 L 23 110/55 L 93 12/07/20 05:30 54 L 19 128/60 94 12/07/20 04:38 58 L 20 138/55 L 94 12/07/20 04:01 63 21 145/65 H 95 12/07/20 02:03 61 20 135/44 L 94 12/06/20 23:39 57 L 22 138/81 12/06/20 23:30 36.9 C 58 L 19 145/67 H 94 Recovery Score Activity: Moves 4 extremities Respiration: Deep Breath/Cough Circulation: +/-20% PreAnes Value Consciousness: Fully Awake Oxygen Saturation: > 92% On Room Air Post Anesthesia Score: 10 Discharge Sedation Level of Care: Fast Track Phase II Post Sedation Plan On clinical assessment, the patient appears to have tolerated the sedation without complications. Patient is recovering as anticipated. Patient will continue to be monitored by nursing and may be discharged when sedation discharge criteria are met per below protocol. Upon Completions of procedure up to 15 minutes continue every 5 minute vital signs and the P.A.R. score; then discharge to a Phase I or Fast Track to Phase I I per the following guidelines: * Discharge Patient to appropriate Phase II area if PAR is 8 or greater or return to pre- procedure baseline. The post - procedure orders will be as directed. * If PAR score is less than 8 or not return to pre-procedure baseline then patient will follow Phase I monitoring till PAR is reached for Phase II. The Phase I may be done in procedure room or may call to secure a Phase I area. * If naloxone or flumazenil are used for reversal, hold in Phase I for continued monitoring from when last reversal dose was given for a minimum of 60 minutes or longer pending the nurse and/or physician discretion of patient condition before discharge to Phase II. Please call the Sedation Physician to re-evaluate and complete post-note for discharge to Phase II area. Do NOT discharge from procedure sedation or Phase 1 until post- sedation evaluation note is complete by procedure /sedation MD Sedation Discharge Instructions to be given to the patient at discharge to home.
[2020-12-07] MEDS ORDERED: ALBUTEROL 0.083% NEBU SOLN 3 ML VIAL NEB PRN (18:25)
[2020-12-07] MEDS ORDERED: SODIUM CHLORIDE 0.9% 500 ML IV SCH (18:30)
[2020-12-07] MEDS: ACETAMINOPHEN 325 MG TAB PO PRN (20:43)
[2020-12-07] MEDS ORDERED: ROSUVASTATIN CALCIUM 5 MG TAB PO SCH (21:00)
[2020-12-07] MEDS ORDERED: MoRPHine SULFATE 2 MG/ML CARP IV STA (23:21)
[2020-12-08] MEDS: ACETAMINOPHEN 325 MG TAB PO PRN (02:56)
--- NOTE | 2020-12-08 07:11 | XRay Report ---
XR chest 2V PA/lateral HISTORY: 70 years-old Female EXACT TIME ORDERED Evaluate for pneumothorax and l status post placemen t of a left subclavian pacer COMPARISON: 12/07/2020 TECHNIQUE: PA and lateral views of the chest FINDINGS: Cardiac silhouette is enlarged. Pulmonary vascular congestion. Interval removal of the loop recorder device. Status post placement of a 3-lead left subclavian pacer. No postprocedural pneumothorax. Unch anged right hemidiaphragmatic elevation. Moderate sized hiatal hernia. Mild blunting of the costophre william angles suggestive of trace effusions. Mild bibasilar densities, likely atelectatic. Degenerative changes of the shoulders and spine. IMPRESSION: Status post placement of a left subclavian pacer. No postprocedural pneumothorax. ACT 112: Negative or not required by law. The above report was generated using voice recognition software. It may contain grammatical, syntax o r spelling errors. Electronically signed by: Stone Arevalo M.D. 12/08/2020 7:09 AM
[2020-12-08 08:10] LABS: Basophils # (auto) 0.05 K/uL (0-0.2); Basophils % (auto) 0.5 %; Eosinophils # (auto) 0.27 K/uL (0-0.5); Eosinophils % (auto) 2.8 %; Hematocrit (blood only) 43.1 % (37-47); Hemoglobin 13.7 g/dL (12.0-16.0); Immature Granulocytes # (auto) 0.02 K/uL (0.00-0.02); Immature Granulocytes % (auto) 0.2 %; Lymphocytes % (auto) 12.6 %; Mean Corpuscular Hemoglobin 26.2 pg (25-34); Mean Corpuscular Hgb Conc 31.8 g/dL (32-36); Mean Corpuscular Volume 82.4 fL (80-100); Mean Platelet Volume 11.1 fL (7.4-10.4); Monocytes # (auto) 0.92 K/uL (0.11-0.59); Monocytes % (auto) 9.6 %; Neutrophils # (auto) 7.09 K/uL (1.4-6.5); Neutrophils % (auto) 74.3 %; Platelet Count 280 K/uL (130-400); RDW Coefficient of Variation 15.8 % (11.5-14.5); RDW Standard Deviation 47.8 fL (36.4-46.3); Red Blood Count 5.23 M/uL (4.2-5.4); White Blood Count 9.55 K/uL (4.8-10.8)
[2020-12-08 08:17] LABS: Partial Thromboplastin Time 27.1 Seconds (21.0-31.0); Prothrombin Time 10.5 Seconds (9.0-12.0)
--- NOTE | 2020-12-08 08:18 | Hospitalist Progress Note ---
Date of Service December 08, 2020 Assessment & Plan (1) Tachy-milagros syndrome: Plan: Tachy-milagros syndrome/paroxysmal atrial fibrillation/symptomatic bradycardia/hypertension- Patient had had a loop recorder implanted to follow with episodes of paroxysmal atrial fibrillation. However, her [employer] loop recorder revealed several episodes of heart rate down into the 30s, that were likely causing her most recent symptoms of lightheadedness and near syncope s/p pacemaker by Dr. Jackson on 12/07 Continue flecainide 150 mg p.o. every 12 hours Holding HCTZ due to hypokalemia Continue aspirin 81 mg daily, losartan 50 mg p.o. every morning and spironolactone 25 mg p.o. every morning (2) Paroxysmal A-fib: Plan: See above (3) Symptomatic bradycardia: Plan: See above (4) History of loop recorder: Plan: See above (5) Hypercholesterolemia: Plan: Continue rosuvastatin 5 mg daily (6) Chronic reflux esophagitis: Plan: Continue omeprazole 40 mg p.o. twice daily/pantoprazole 40 mg p.o. twice daily (7) Hypertension: Plan: See above (8) BERTRAM on CPAP: Plan: CPAP at bedtime as needed Admission and Anticipated Discharge Date Admission Date: December 07, 2020 Results & Data Results & Data ([facility]) Vital Signs (Past 12 Hours) Vital Signs Temp Pulse Pulse Pulse Resp BP Pulse Ox 12/08/20 07:59 36.8 C 60 18 126/76 92 12/08/20 07:30 60 12/08/20 03:01 36.6 C 62 20 128/68 92 12/08/20 00:56 60 12/07/20 23:13 35.6 C L 60 18 140/84 97 12/07/20 21:50 83 16 94 12/07/20 20:19 60 18 104/67 96 Laboratory Results 12/08/20 12/08/20 12/08/20 Range/Units 07:48 07:48 07:48 WBC 9.55 (4.8-10.8) K/uL RBC 5.23 (4.2-5.4) M/uL Hgb 13.7 (12.0-16.0) g/dL Hct 43.1 (37-47) % MCV 82.4 (80-100) fL MCH 26.2 (25-34) pg MCHC 31.8 L (32-36) g/dL RDW Std Deviation 47.8 H (36.4-46.3) fL RDW Coeff of Jeffery 15.8 H (11.5-14.5) % Plt Count 280 (130-400) K/uL MPV 11.1 H (7.4-10.4) fL Immature Gran % (Auto) 0.2 % Neut % (Auto) 74.3 % Lymph % (Auto) 12.6 % Sierra % (Auto) 9.6 % Eos % (Auto) 2.8 % Baso % (Auto) 0.5 % Neut # (Auto) 7.09 H (1.4-6.5) K/uL Lymph # (Auto) 1.20 (1.2-3.4) K/uL Sierra # (Auto) 0.92 H (0.11-0.59) K/uL Eos # (Auto) 0.27 (0-0.5) K/uL Baso # (Auto) 0.05 (0-0.2) K/uL Immature Gran # (Auto) 0.02 (0.00-0.02) K/uL PT 10.5 (9.0-12.0) Seconds INR 1.0 (0.9-1.1) APTT 27.1 (21.0-31.0) Seconds PTT Ratio 1.0 Sodium Pending Potassium Pending Chloride Pending Carbon Dioxide Pending Anion Gap Pending BUN Pending Creatinine Pending Est Cr Clr Drug Dosing Pending Est GFR ( Amer) Pending Est GFR (Non-Af Amer) Pending BUN/Creatinine Ratio Pending Glucose Pending Calcium Pending Magnesium Pending Total Bilirubin Pending AST Pending ALT Pending Alkaline Phosphatase Pending Total Protein Pending Albumin Pending Globulin Pending Albumin/Globulin Ratio Pending 12/07/20 Range/Units 11:07 WBC 11.97 H (4.8-10.8) K/uL RBC 5.21 (4.2-5.4) M/uL Hgb 13.7 (12.0-16.0) g/dL Hct 41.9 (37-47) % MCV 80.4 (80-100) fL MCH 26.3 (25-34) pg MCHC 32.7 (32-36) g/dL RDW Std Deviation 45.7 (36.4-46.3) fL RDW Coeff of Jeffery 15.7 H (11.5-14.5) % Plt Count 308 (130-400) K/uL MPV 10.6 H (7.4-10.4) fL Immature Gran % (Auto) 0.2 % Neut % (Auto) 76.7 % Lymph % (Auto) 9.4 % Sierra % (Auto) 12.2 % Eos % (Auto) 1.2 % Baso % (Auto) 0.3 % Neut # (Auto) 9.19 H (1.4-6.5) K/uL Lymph # (Auto) 1.13 L (1.2-3.4) K/uL Sierra # (Auto) 1.46 H (0.11-0.59) K/uL Eos # (Auto) 0.14 (0-0.5) K/uL Baso # (Auto) 0.03 (0-0.2) K/uL Immature Gran # (Auto) 0.02 (0.00-0.02) K/uL PT (9.0-12.0) Seconds INR (0.9-1.1) APTT (21.0-31.0) Seconds PTT Ratio Sodium Potassium Chloride Carbon Dioxide Anion Gap BUN Creatinine Est Cr Clr Drug Dosing Est GFR ( Amer) Est GFR (Non-Af Amer) BUN/Creatinine Ratio Glucose Calcium Magnesium Total Bilirubin AST ALT Alkaline Phosphatase Total Protein Albumin Globulin Albumin/Globulin Ratio Diagnostic Findings Chest X-Ray 12/08/20 07:00 XR chest 2V PA/lateral HISTORY: 70 years-old Female EXACT TIME ORDERED Evaluate for pneumothorax and l status post placement of a left subclavian pacer COMPARISON: 12/07/2020 TECHNIQUE: PA and lateral views of the chest FINDINGS: Cardiac silhouette is enlarged. Pulmonary vascular congestion. Interval removal of the loop recorder device. Status post placement of a 3-lead left subclavian pacer. No postprocedural pneumothorax. Unchanged right hemidiaphragmatic elevation. Moderate sized hiatal hernia. Mild blunting of the costophrenic angles suggestive of trace effusions. Mild bibasilar densities, likely atelectatic. Degenerative changes of the shoulders and spine. IMPRESSION: Status post placement of a left subclavian pacer. No postprocedural pneumothorax. ACT 112: Negative or not required by law. The above report was generated using voice recognition software. It may contain grammatical, syntax or spelling errors. Electronically signed by: Stone Arevalo M.D. 12/08/2020 7:09 AM PG Care Time/CCT Total # of Minutes Spent Total Time Spent with Patient: Total time spent is greater than 50% in coordination of care (as documented) at patient's floor/unit and/or counseling patient: Coding Diagnoses Tachy-milagros syndrome I49.5 Paroxysmal A-fib I48.0 Symptomatic bradycardia R00.1 History of loop recorder Z98.890 Hypercholesterolemia E78.00 Chronic reflux esophagitis K21.0 Hypertension I10 Hypertension type: primary hypertension BERTRAM on CPAP G47.33; Z99.89 (1) Hypertension Hypertension type: primary hypertension Qualified Code(s): I10 - Essential (primary) hypertension
[2020-12-08] MEDS: FLECAINIDE ACETATE 100 MG TABLET PO SCH (08:28)
[2020-12-08] MEDS: PANTOprazole 40 MG TAB PO SCH (08:29)
[2020-12-08] MEDS: LOSARTAN POTASSIUM 50 MG TAB PO SCH (08:29)
[2020-12-08] MEDS: CALCIUM 600MG + VIT D 400 IU TAB PO SCH (08:29)
[2020-12-08] MEDS: MAGNESIUM OXIDE 400 MG TAB PO SCH (08:29)
[2020-12-08] MEDS: SPIRONOLACTONE 25 MG TAB PO SCH (08:30)
[2020-12-08] MEDS: ASPIRIN 81 MG ECTAB PO SCH (08:30)
[2020-12-08] MEDS: CHOLECALCIFEROL 1,000 UNITS 25 MCG TAB PO SCH (08:30)
[2020-12-08 08:53] LABS: BUN Creatinine Ratio 20.5 (10-20); Calcium 8.6 mg/dl (8.5-10.1); Creatinine Clr Calc Pharmacy 68.6 ml/min; Est GFR (African American) 82.9 ml/min; Est GFR (Non-African American) 71.5 ml/min; Potassium 3.9 mmol/L (3.5-5.1)
[2020-12-08] MEDS ORDERED: dilTIAZem HCL 240 MG CAPCR PO SCH (09:00)
--- NOTE | 2020-12-08 09:51 | Discharge Summary ---
Date of Service December 08, 2020 Admission HPI Per Admitting Provider The patient is a 70-year-old female with a past medical history including paroxysmal atrial fibrillation, lower extremity edema, history of loop recorder, polycythemia, nocturnal hypoxemia, BERTRAM on CPAP, hypertension, dyspnea exertion, hypercholesterolemia, right chronic reflux esophagitis and long-term anticoagulant use. She presents because the above symptoms. Analysis of her loop recording from [employer] device shows several episodes of bradycardia into the 30s. Admission Exam Per Admitting Provider The patient is awake, alert and oriented 3, well developed and well nourished, normocephalic and atraumatic, lying in bed and in no acute distress. HEENT--PERRL, EOMI, mucous membranes and oropharynx dry. Neck--supple. No JVD. No bruits. Thyroid normal, trachea midline, no adenopathy. Heart--normal S1 and S2, with PVCs. Intermittent atrial fibrillation. No murmurs, rubs or gallops. Lungs--clear bilaterally, no respiratory distress, no accessory muscle use. Abdomen--normal bowel sounds and soft. Nontender. Nondistended. Obese Extremities--no cyanosis or clubbing. No edema. Dermatologic--normal skin turgor, normal color, no abnormal lymph nodes, no rash. Neurologic--cranial nerves II through XII grossly intact. Rheumatologic--normal range of motion. Psychiatric--normal affect. Principal Diagnosis Tachy-Zoltan Syndrome Discharge Exam Constitutional WD/WN, vitals as above (NAD) Eyes + anicteric sclerae and PERRL ENMT mmm Neck trachea midline, no thyromegaly Respiratory normal respiratory effort, lungs clear to auscultation Cardiovascular RRR, no murmur, no edema Chest (Breasts) Additional Comments: pacemaker to L chest, site c/d/i. no significant bleeding appreciated, minimally tender to palpation Gastrointestinal (Abdomen) normal bowel sounds, soft, nontender, no hepatosplenomegaly Musculoskeletal no cyanosis or clubbing, extremities motor strength 5/5 Skin no rashes, warm and dry Neurologic PERRL, EOMI, accommodation nl, no face palsy, no dysarthria Psychiatric A+Ox3, euthymic affect Lymphatic no cervical or axillary lymphadenopathy Discharge Data Allergies Allergy/AdvReac Type Severity Reaction Status Date / Time Sulfa (Sulfonamide Allergy Intermediate RASH/HIVES Verified 11/13/20 10:19 Antibiotics) NSAIDS (Non-Steroidal Allergy Unknown Unknown Verified 11/13/20 10:19 Anti-Inflamma Penicillins AdvReac Intermediate UPSET Verified 12/07/20 12:04 STOMACH - CAN TOLERATE IF NEEDED codeine AdvReac Unknown PROJECTILE Verified 11/13/20 10:19 VOMITING,HEADACHE Consultations 12/07/20 02:02 ED Decision to Admit Stat 12/07/20 05:08 Consult Cardiology Routine Procedures Performed Operation Date: 12/07/20 15:00 Actual Procedures p Pacer with A/V Leads (Dual) - Faraz Jackson MD s Remove Cardiac Event Recorder - Faraz Jackson MD Ordered Studies 12/07/20 14:23 CL Cath Imgs for PACS use only Urgent Hospital Course (1) Tachy-zoltan syndrome: Tachy-zoltan syndrome/paroxysmal atrial fibrillation/symptomatic bradycardia/hypertension- Patient had had a loop recorder implanted to follow with episodes of paroxysmal atrial fibrillation. However, her Medtronic loop recorder revealed several episodes of heart rate down into the 30s, that were likely causing her most recent symptoms of lightheadedness and near syncope Cardiology consulted -- confirmed tachybradia manifest by paroxysmal afib and sinus bradycardia s/p placement of pacemaker on 12/[address] Jackson Usual medications resumed at discharge. Patient in NSR and no need for amiodarone at this time. Scheduled follow up in [address] Jackson for pacemaker check (2) Paroxysmal A-fib: See above --not on anticoagulation due to risk of bleeding. she is to further consider at discharge as she has considered watchman in the past as indicated but patient not ready to make that decision yet. rec'd continued discussion at discharge Continues on fleccanide No need for amiodarone at this time per cardio F/u as above (3) Symptomatic bradycardia: See above (4) History of loop recorder: removed and pacemaker placed as above (5) Hypercholesterolemia: Continue rosuvastatin 5 mg daily (6) Chronic reflux esophagitis: Continue omeprazole 40 mg p.o. twice daily/pantoprazole 40 mg p.o. twice daily (7) Hypertension: Controlled Resumed all home medications at discharge (8) BERTRAM on CPAP: CPAP at bedtime as needed Discharged home with . (2) Paroxysmal A-fib: (3) Symptomatic bradycardia: (4) History of loop recorder: (5) Hypercholesterolemia: (6) Chronic reflux esophagitis: (7) Hypertension: (8) BERTRAM on CPAP: Total Time Total Time Spent Total Time Spent (In Minutes): 70 Discharge Plan Discharge Items Patient Disposition: Home - Self-Care Reason For Visit: TACHYBRADY SYNDROME Discharge Diagnosis: Tachybrady Syndrome Goals: You have been hospitalized for an urgent problem which required surgery. During your stay at [facility], we have made an effort to correct the problem that brought you to the hospital while keeping you as comfortable as possible. Surgery and medications were used to bring your condition under control and your discharge instructions will include directions for any medications you should take after leaving the hospital. Please make sure to follow the advice of your surgeon regarding follow up with the surgeon and with your primary care provider. Activity: As commented below Non-emergency contact: Primary Care Provider and Escalator Installer Call non-emergency contact if: you have any medication questions, your symptoms worsen and your pain is not controlled Follow-up/Referrals: Faraz Jackson MD [Physician] - 12/11/20 10:00 am Patricia Gillis MD [Primary Care Provider] - 12/21/20 11:30 am Diet: Heart Healthy Addtl Attending Provider Instructions: ACTIVITY RECOMMENDATIONS: * Do not raise affected arm over head for 2 weeks. SPECIAL CARE INSTRUCTIONS: * If bleeding occurs, apply direct pressure to area for 5 minutes. * Call your doctor if you have severe pain, fever, drainage or bleeding at site. * Keep dressing on and dry for 48 hours then remove. * Keep any scheduled doctor's appointment. * Implant Card - hand held device with website information given. SKIN IRRITATION: * You may experience some redness and/or swelling in the area where radiation was administered. If any skin irritation occurs, please contact your family physician. FOLLOW UP VISIT: Keep any scheduled doctor appointments. Addtl Commercial Administrator Provider Instructions: You have been hospitalized and found to have tachy-zoltan syndrome that explained your symptoms. Cardiology was consulted and you underwent placement of pacemaker which also has settings to help manage irregular rhythms and to help prevent symptoms from recurring. You will have follow up with Dr. Jackson next week as already scheduled. You may take tylenol as needed for pain control, and this should subside over the next several days. Please follow up with cardiology and PCP in the next week to monitor your progr ess. Please return to the emergency department with any increased pain, drainage, redness, or for any other symptoms that are concerning for you. It has been a pleasure being a part of the medical team providing for you while you have been in the hospital. Take care! Pending Studies at Discharge: No Stand-Alone Forms: My [facility] Medications and DC Order Prescriptions: Continued aspirin [Adult Low Dose Aspirin] 81 mg tablet,delayed release (DR/EC) 81 mg PO DAILY RF: 0 albuterol sulfate [ProAir HFA] 90 mcg/actuation HFA aerosol inhaler 2 puffs INH Q6H PRN (Reason: shortness of breath or wheezing) Qty: 18 RF: 5 hydrochlorothiazide 25 mg tablet 25 mg PO DAILY Qty: 90 RF: 1 losartan 50 mg tablet 50 mg PO QAM Qty: 90 RF: 3 spironolactone 25 mg tablet 25 mg PO QAM Qty: 90 RF: 3 omeprazole 40 mg capsule,delayed release(DR/EC) See Rx Instructions .ROUTE .COMPLEX Qty: 180 RF: 1 rosuvastatin 5 mg tablet 5 mg PO HS Qty: 30 RF: 5 diltiazem HCl 120 mg capsule,extended release 24hr 120 mg PO HS Qty: 90 RF: 1 furosemide [Lasix] 20 mg tablet 20 mg PO Q OTHER DAY PRN (Reason: edema) Qty: 45 RF: 1 diltiazem HCl 240 mg capsule,extended release 24hr See Rx Instructions .ROUTE .COMPLEX Qty: 90 RF: 1 diclofenac sodium 1 % gel 2 g TOP QID Qty: 100 RF: 2 flecainide 150 mg tablet 150 mg PO Q12H Qty: 60 RF: 2 (DME) CPAP Machine Misc See Rx Instructions .MEDSUPPLY Qty: 1 RF: 0 cetirizine [Zyrtec] 10 mg tablet 5 mg PO QPM PRN (Reason: allergy symptoms) RF: 0 calcium carbonate [Calcium 600] 600 mg calcium (1,500 mg) Tablet 600 mg PO BIDM RF: 0 coenzyme Q10 [CoQ-10] 100 mg Capsule 200 mg PO QAM RF: 0 cholecalciferol (vitamin D3) [Vitamin D3] 5,000 unit Tablet 5,000 unit PO QAM RF: 0 magnesium oxide 400 mg Capsule 400 mg PO BID RF: 0 Discharge Orders: Discharge Order (Routine); Ordered 12/08/20 Ordered By: Angela Shea/Other Patient Handouts: Discharge Instructions for ... Admission Data Admit Date/Time: 12/07/20 03:23 Attending Provider: Jaxson Lazar Admit Provider: Pedro Tucker Primary Care Provider: Patricia Gillis Other Providers: Pedro Tucker ; Faraz Jackson Other Interventions: Discharge Summary Assessment (RN) Last Done: 12/08/20 10:41 Coding Level of Care Code D/C DAY MANAGEMENT >30 MINS Diagnoses Tachy-zoltan syndrome I49.5 Paroxysmal A-fib I48.0 Symptomatic bradycardia R00.1 History of loop recorder Z98.890 Hypercholesterolemia E78.00 Chronic reflux esophagitis K21.0 Hypertension I10 Hypertension type: primary hypertension BERTRAM on CPAP G47.33; Z99.89
--- NOTE | 2020-12-08 10:01 | Cardiology Progress Note ---
Date of Service December 08, 2020 Assessment & Plan (1) Status post placement of cardiac pacemaker: Plan: She is doing well post pacemaker implantation, the leads are in good position, the device is working well and she feels well. The incisions look good. She is stable for discharge. I have arranged a wound check for 3 days time. (2) Paroxysmal A-fib: Plan: We will need to monitor her atrial fibrillation with the pacemaker in place, I am hopeful she will have less of it now with control of her atrial rate. She should continue the flecainide. (3) Anticoagulant long-term use: Plan: At the moment I would continue to hold anticoagulation due to her bleeding problem, if she has a lot of atrial fibrillation identified on pacemaker monitoring we may have to consider alternatives such as watchman implantation rather than rhythm control. She has already discussed watchman with Libby who felt that it was indicated but she is not ready to make the decision to have it done as yet. Admission and Anticipated Discharge Date Admission Date: December 07, 2020 Subjective She is feeling much better today, she has minor incisional discomfort but no palpitations, lightheadedness or other cardiovascular symptoms. No chest discomfort or shortness of breath. Physical Exam Physical Exam: Both the pacemaker insertion site and the loop recorder explant site looks clean and dry with no significant bleeding, no swelling or erythema. Dressings changed. Lungs are clear Cardiac rhythm is regular with no rub Results & Data ([facility]) Vital Signs (Past 12 Hours) Vital Signs Temp Pulse Pulse Pulse Resp BP Pulse Ox 12/08/20 08:44 60 18 94 12/08/20 07:59 36.8 C 60 18 126/76 92 12/08/20 07:30 60 12/08/20 03:01 36.6 C 62 20 128/68 92 12/08/20 00:56 60 12/07/20 23:13 35.6 C L 60 18 140/84 97 12/07/20 21:50 83 16 94 Laboratory Results Cardiac Enzymes 12/08/20 Range/Units 07:48 AST 11 L (15-37) U/L Coagulation 12/08/20 Range/Units 07:48 PT 10.5 (9.0-12.0) Seconds APTT 27.1 (21.0-31.0) Seconds CBC 07/15/21 07/16/21 Range/Units 11:07 07:48 WBC 11.97 H 9.55 (4.8-10.8) K/uL RBC 5.21 5.23 (4.2-5.4) M/uL Hgb 13.7 13.7 (12.0-16.0) g/dL Hct 41.9 43.1 (37-47) % Plt Count 308 280 (130-400) K/uL Neut # (Auto) 9.19 H 7.09 H (1.4-6.5) K/uL Lymph # (Auto) 1.13 L 1.20 (1.2-3.4) K/uL [place] # (Auto) 1.46 H 0.92 H (0.11-0.59) K/uL Eos # (Auto) 0.14 0.27 (0-0.5) K/uL Baso # (Auto) 0.03 0.05 (0-0.2) K/uL Comprehensive Metabolic Panel 12/08/20 Range/Units 07:48 Sodium 138 (136-145) mmol/L Potassium 3.9 (3.5-5.1) mmol/L Chloride 109 H (98-107) mmol/L Carbon Dioxide 26 (21-32) mmol/L BUN 17 (7-18) mg/dl Creatinine 0.82 (0.6-1.2) mg/dl Glucose 87 (70-99) mg/dl Calcium 8.6 (8.5-10.1) mg/dl AST 11 L (15-37) U/L ALT 18 (12-78) U/L Alkaline Phosphatase 84 (45-117) U/L Total Protein 6.0 L (6.4-8.2) gm/dl Albumin 3.0 L (3.4-5.0) gm/dl Intake and Output 12/07/20 12/08/20 12/08/20 22:59 06:59 14:59 Intake Total 500 / 500 Balance 500 / 300 Intake: IV 500 / 500 Sodium Chloride 0.9% 500 ml @ 500 / 500 250 mls/hr IV .Q2H ALLISON Rx#: [id number] Other: # Unmeasured Voids 1 1 Weight 96.5 kg Weight Measurement Method Standing Scale Diagnostic Findings Postop ECG: Atrial pacing with intact AV conduction Telemetry: Appropriate atrial pacing Pacemaker evaluation: Excellent pacing and sensing characteristics in both chambers Chest x-ray: No pneumothorax, good lead position PG Care Time/CCT Total # of Minutes Spent Total Time Spent with Patient: Total time spent is greater than 50% in coordination of care (as documented) at patient's floor/unit and/or counseling patient: Coding Level of Care Code 49201 Post Operative Follow-Up Diagnoses Status post placement of cardiac pacemaker Z95.0 Paroxysmal A-fib I48.0 Anticoagulant long-term use Z79.01 CPT Codes Dual Lead Pacemaker System - [id number] ([id number])
--- NOTE | 2020-12-08 13:08 | Electrocardiogram Report ---
Test Reason : Blood Pressure : / mmHG Vent. Rate : 060 BPM Atrial Rate : 060 BPM P-R Int : 256 ms QRS Dur : 100 ms QT Int : 474 ms P-R-T Axes : 087 019 050 degrees QTc Int : 474 ms Atrial-paced rhythm with prolonged AV conduction Abnormal ECG When compared with ECG of 06-DEC-2020 23:43, Electronic atrial pacemaker has replaced Junctional rhythm Nonspecific T wave abnormality no longer evident in Inferior leads Confirmed by Nik Glasgow ([id number]) on 12/08/2020 1:07:57 PM Referred By: REFERRED SELF Confirmed By:Moustapha Glasgow
--- NOTE | 2020-12-08 13:16 | Electrocardiogram Report ---
Test Reason : Blood Pressure : / mmHG Vent. Rate : 060 BPM Atrial Rate : 060 BPM P-R Int : 250 ms QRS Dur : 096 ms QT Int : 478 ms P-R-T Axes : 070 021 052 degrees QTc Int : 478 ms Poor data quality, interpretation may be adversely affected Atrial-paced rhythm with prolonged AV conduction Low voltage QRS Abnormal ECG When compared with ECG of 07-DEC-2020 17:43, (unconfirmed) No significant change was found Confirmed by Nik Glasgow ([id number] on 12/08/2020 1:16:39 PM Referred By: REFERRED SELF Confirmed By:Moustapha Glasgow
== END 2020-12-08 11:50 | disposition home or self-care (01) | DRG 244 ==
LOC: ED 23:20 → EDINP 12-07 00:43 → SUATTDRO 12-07 03:23 → 2S 12-07 13:00

== ENCOUNTER 2024-12-10 15:01 | Inpatient (IN) ==
[2024-12-10 15:53] LABS: Appearance Urine Clear (Clear); Bacteria Urine Automated None Seen (None Seen); Cast Urine Automated 0-2 /lpf (0-2); Epithelial Cell Urine Auto 0-2 /hpf (0-2); Glucose Urine UA Negative (Negative); RBC Urine Automated 0-2 /hpf (0-2); WBC Urine Automated 0-5 /hpf (0-5)
[2024-12-10 15:58] LABS: Alanine Aminotransferase 348.0 U/L (7-52); Albumin Globulin Ratio 1.3 (0.9-2); Alkaline Phosphatase 468.0 U/L (34-104); Anion Gap 10.0 (3-11); Bilirubin,Total 9.3 mg/dl (0.2-1.0); Blood Urea Nitrogen 15.0 mg/dl (6-23); Calcium 9.5 mg/dl (8.6-10.3); Carbon Dioxide 24.0 mmol/L (21-32); Chloride 102.0 mmol/L (98-107); Creatinine Clr Calc Pharmacy 41.4 ml/min; Globulin 3.2 gm/dl (2.5-4.0); Glucose 98.0 mg/dl (70-99(Fasting)); Lipase 4.0 U/L (11-82); Potassium 3.9 mmol/L (3.5-5.1); Sodium 136.0 mmol/L (136-145); Total Protein 7.3 gm/dl (6.0-8.3)
--- NOTE | 2024-12-10 16:03 | Emergency Department Note ---
Impression & Plan Choledocholithiasis, Elevated bilirubin, Transaminitis ED Provider Note NAME: JCARLOS PRINCE AGE: 74 SEX: F : 1950 ARRIVES VIA: Walk-In INFORMANT: Patient ED PROVIDER(S): Juan Garcia DO CHIEF COMPLAINT: Elevated bilirubin and LFTs HPI: Patient is a 74-year-old female with a past medical history of dizziness, cardiac pacemaker, paroxysmal A-fib who presents to the ER referred in by the PCP for dilated common bile duct and combination with an elevated bilirubin and transaminitis. Patient notes that she felt constipated about 10 days ago. That resolved with Senokot. About 7 days ago she started feeling itching all over. She notes her stools have become pale yellow and her urine has become very dark in color she called her PCP and was seen and had blood work. She was referred in for possible choledocholithiasis. No fevers. No headache or change in vision. No chest pain or shortness of breath. No nausea, vomiting or diarrhea. ADDITIONAL HISTORY OBTAINED: Per HPI Chronic Medical/Social Conditions Affecting Care: Per HPI PAST MEDICAL HISTORY:See Below PAST SURGICAL HISTORY:See Below FAMILY HISTORY:See Below SOCIAL HISTORY:See Below HOME MEDICATIONS:See Below ALLERGIES:See Below VITALS:See Below PHYSICAL EXAMINATION: GENERAL: Sitting up in bed, alert, well appearing, well nourished, no distress, non-toxic EYE EXAM: normal conjunctiva. PERRL and EOM's grossly intact. OROPHARYNX: no exudate, no erythema, lips, buccal mucosa, and tongue normal and mucous membranes are moist NECK: supple, no nuchal rigidity, no adenopathy, non-tender LUNGS: Clear to auscultation. Normal chest wall mechanics HEART: no murmurs, S1 normal and S2 normal ABDOMEN: abdomen soft, non-tender, normo-active bowel sounds, no masses, no rebound or guarding. UPPER EXTREMITIES: upper extremities are grossly normal. LOWER EXTREMITIES: No pitting edema. NEURO EXAM: Normal sensorium, cranial nerves II-XII grossly intact, normal speech, no gross weakness of arms, no gross weakness of legs. MEDICAL DECISION MAKING: Patient is a 74-year-old female referred in by PCP for elevated bilirubin and LFTs concern for choledocholithiasis. Ultrasound was reviewed as an outpatient which showed dilated of the CBD. IV was established and blood work was obtained. Labs show no significant leukocytosis or anemia. INR unremarkable. BMP with a T. bili of 9 and it AST and ALT of 200 and 350. Lipase was normal. UA was clean. Discussed the case with Dr. Tony Correa from [facility] as he was a triage physician. He notes that they would not accept this transfer until Friday or Friday as the patient does not need an urgent procedure. Upon review of our on-call she Dr. Bonds will be her Friday morning he was able to do ERCPs. If the patient deteriorates Dr. King noted the patient can be emergently transferred to [facility] however if not patient would best served to have ERCP done here on Friday as opposed to at [facility] on Friday. Patient was updated bedside. Discussed this with the hospitalist. Did discuss with our GI Dr. Lim who is on-call and he agrees patient would be best served staying here due to the circumstances. Consults/Care Managements Discussions: Per [facility] Triage Nursing notes reviewed. Limited review of prior medical records performed Vital Signs: reviewed and remarkable for no significant abnormalities Differential diagnosis: Differential diagnoses includes but is not limited to gastritis, peptic ulcer disease, GERD, gallbladder disease, pancreatitis, small bowel obstruction, appendicitis, diverticulitis, hernia, urinary tract infection, torsion, perforation, trauma, infectious. ER treatment provided: See below Diagnostics interpreted by me include EKG and cardiac monitoring as listed below: -Cardiac Monitoring: An order was placed for continuous cardiac monitoring. The monitor shows a rate of 60 with sinus rhythm. -ECG: none -Laboratory studies:Interpreted by me as stated above in MDM and shown below. Imaging studies: Xrays: As interpreted by me:none CTs show: none Procedures:none Critical Care: None Past Med/Surg History Problem List (Updated 12/10/24 @ 21:26 by Juan Garcia DO) Transaminitis (Acute) Elevated bilirubin (Acute) Choledocholithiasis (Acute) Pruritus Acute dehydration Choledocholithiasis Osteopenia Dizziness Encounter for pre-operative examination Sinus node dysfunction Acute upper respiratory infection Cardiac pacemaker Encounter for examination following treatment at hospital Status post placement of cardiac pacemaker Symptomatic bradycardia (Acute) Paroxysmal A-fib (Acute) Breast tenderness Edema of lower extremity (Chronic) Routine health maintenance (Chronic) History of loop recorder Polycythemia (Chronic) Nocturnal hypoxemia BERTRAM on CPAP (Chronic) Leukocytosis (Acute) Hypertension (Chronic) Anticoagulant long-term use (Acute) Dyspnea on exertion Paroxysmal atrial fibrillation (Chronic) Hypercholesterolemia (Chronic) Chronic reflux esophagitis (Acute) Medical History (Updated 12/10/24 @ 21:26 by Juan Garcia DO) Tachy-milagros syndrome Psoas hematoma, left, secondary to anticoagulant therapy Gastric ulcer Scoliosis Osteoarthritis GERD (gastroesophageal reflux disease) Temporomandibular joint disorder Migraine HX OF Pulmonary embolism OVER 20 YEARS AGO (CAUSED BY HORMONE REPLACEMENT THERAPY) Low iron IV INFUSIONS PRN Surgical History History of oophorectomy History of knee surgery History of incision and drainage Of Skin Abscess History of hernia repair History of bladder surgery History of laparoscopy History of dilatation and curettage History of total abdominal hysterectomy History of total hip arthroplasty LEFT History of esophagogastroduodenoscopy (EGD) History of herniorrhaphy History of tooth extraction History of tonsillectomy History of adenoidectomy Family History (Updated 12/10/24 @ 19:27 by Christiano Horowitz MD, PhD) Father , at 86 years of age from natural causes. Atrial fibrillation COPD (chronic obstructive pulmonary disease) Mother , at 83 years of age from natural causes. Coronary heart disease Hx of CABG Grandfather (Maternal) Cerebral hemorrhage Sister Atrial fibrillation Leaky heart valve Celiac disease Son Myocardial infarction [place] at age 51 Denies family history of Ovarian cancer Prostate cancer Crohn's disease Breast cancer Colorectal cancer Social History Smoking Status: Never smoker Second Hand Exposure: No ( A CHILD); Do You Dip or Chew Tobacco: No; Hx Alcohol Use: Yes Alcohol type: wine Alcohol Intake Frequency: Monthly or Less Hx Substance Use: No Preferred Language: Togolese Communication Ability: Effective Visual Impairment: Limited Hearing Ability: Normal 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 Beliefs That Will Affect Care: None marital status: Current Living Situation: Spouse current occupational status: retired How many Children do You have: 2 Feels Safe at Home: Yes Childhood Exposure to Second-Hand Smoke: Yes Diet: other Diet Comment: Low Sugar caffeine: Yes during the past year weight has: remained stable Dental Care, Regularly: Yes Physical Activity Frequency: 1-2 Times per Week Physical Activity Frequency Comment: Due to hematoma Seatbelt Use: always Sunscreen Use: Yes Do you think of yourself as: straight/heterosexual Gender Identity: Female Assistive Devices: Cane and Glasses Allergies Allergies Allergy/AdvReac Type Severity Reaction Status Date / Time Sulfa (Sulfonamide Allergy Intermediate RASH/HIVES Verified 12/10/24 17:01 Antibiotics) NSAIDS (Non-Steroidal AdvReac Severe HX OF Verified 12/10/24 17:01 Anti-Inflamma BLEEDING ULCERS Penicillins AdvReac Intermediate UPSET Verified 12/10/24 17:01 STOMACH - CAN TOLERATE IF NEEDED codeine AdvReac Unknown PROJECTILE Verified 12/10/24 17:01 VOMITING,HEADACHE Home Meds Home Medications Medication Instructions Recorded Confirmed calcium carbonate (Calcium 600) 600 mg PO BIDM 08/06/18 12/10/24 cholecalciferol (vitamin D3) 125 5,000 unit PO QAM 08/06/18 12/10/24 mcg (5,000 unit) tablet (Vitamin D3) coenzyme Q10 100 mg capsule 200 mg PO QAM 08/06/18 12/10/24 (CoQ-10) magnesium oxide 400 mg PO BID 08/17/18 12/10/24 aspirin 81 mg tablet,delayed 81 mg PO DAILY 10/01/19 12/10/24 release (Adult Low Dose Aspirin) cetirizine 10 mg tablet (Zyrtec) 5 mg PO QPM PRN allergy symptoms 05/22/20 12/10/24 glucosamine [id number] 1 tab PO BID 07/20/21 12/10/24 500 mg-167 mg-400 mg tablet diclofenac sodium 1 % topical gel 2 g topical QID PRN JOINT/MUSCLE 12/10/24 12/10/24 PAIN Previous Rx's Medication Instructions Recorded CPAP Machine #1 ea 02/08/20 omeprazole 40 mg capsule,delayed 40 mg PO DAILY #90 caps 03/09/24 release losartan 50 mg tablet 50 mg PO QAM #90 tabs 05/18/24 spironolactone 25 mg tablet 25 mg PO QAM #90 tabs 05/18/24 flecainide 150 mg tablet 150 mg PO Q12H #180 tabs 05/31/24 furosemide 20 mg tablet (Lasix) 20 mg PO Q OTHER DAY PRN edema #45 01/13/25 tabs diltiazem HCl 240 mg 240 mg PO QAM #90 caps 07/19/24 capsule,extended release 24 hr rosuvastatin 5 mg tablet 5 mg PO HS #90 tabs 08/24/24 Results & Data (ED) Vital Signs Vital Signs - 24 hr 12/10/24 15:13 12/10/24 15:36 12/10/24 15:50 Temperature 36.9 C Temperature Source Temporal Artery Scan Pulse Rate 76 61 Pulse Rate [Apical] 62 Pulse Rate from SpO2 Sensor Pulse Rhythm [Apical] Regular Pulse Strength [Apical] Normal Respiratory Rate 18 18 Respiratory Effort / Characteristics Non-Labored Spontaneous Non-Labored Spontaneous Respiratory Depth Normal Normal Respiratory Pattern Regular Regular Blood Pressure 164/88 H Blood Pressure [Right Arm] 148/74 H Blood Pressure Mean 113 Blood Pressure Mean [Right Arm] 98 Blood Pressure Position [Right Arm] Lying Pulse Oximetry 94 97 Oxygen Delivery Method Room Air Room Air Sepsis Recent Fever Within 48 Hours No Sepsis New/Unexplained Change in Mental Status N/A Sepsis Action Taken by Nursing No Action Required 12/10/24 17:03 Temperature Temperature Source Pulse Rate 63 Pulse Rate [Apical] Pulse Rate from SpO2 Sensor 63 Pulse Rhythm [Apical] Pulse Strength [Apical] Respiratory Rate 18 Respiratory Effort / Characteristics Respiratory Depth Respiratory Pattern Blood Pressure 136/74 Blood Pressure [Right Arm] Blood Pressure Mean 94 Blood Pressure Mean [Right Arm] Blood Pressure Position [Right Arm] Pulse Oximetry 94 Oxygen Delivery Method Sepsis Recent Fever Within 48 Hours Sepsis New/Unexplained Change in Mental Status Sepsis Action Taken by Nursing Laboratory Data 12/10/24 15:25 12/10/24 15:25 Lab Results 12/10/24 Range/Units 15:25 WBC 10.57 (4.8-10.8) K/ul RBC 5.53 H (4.20-5.40) M/uL Hgb 14.1 (12.0-16.0) g/dl Hct 42.7 (37.0-47.0) % MCV 77.2 L (80.0-100.0) fL MCH 25.5 (25.0-34.0) pg MCHC 33.0 (32.0-36.0) g/dL RDW Std Deviation 55.3 H (36.4-46.3) fL RDW Coeff of Jeffery 21.0 H (11.5-14.5) % Plt Count 389 (130-400) K/uL MPV 10.7 (9.4-12.4) fL Immature Gran % (Auto) 0.3 % Neut % (Auto) 77.0 % Lymph % (Auto) 11.6 % Winston % (Auto) 9.3 % Eos % (Auto) 1.0 % Baso % (Auto) 0.8 % Neut # (Auto) 8.14 H (1.40-6.50) K/uL Lymph # (Auto) 1.23 (1.20-3.40) K/uL Winston # (Auto) 0.98 H (0.11-0.59) K/uL Eos # (Auto) 0.11 (0.00-0.50) K/uL Baso # (Auto) 0.08 (0.00-0.20) K/uL Immature Gran # (Auto) 0.03 (0.01-0.20) K/uL Polychromasia 1+ Anisocytosis Present PT Cancelled INR Cancelled Sodium 136 (136-145) mmol/L Potassium 3.9 (3.5-5.1) mmol/L Chloride 102 (98-107) mmol/L Carbon Dioxide 24 (21-32) mmol/L Anion Gap 10 (3-11) BUN 15 (6-23) mg/dl Creatinine 1.14 (0.6-1.2) mg/dl Est Cr Clr Drug Dosing 41.4 ml/min eGFR 49.89 BUN/Creatinine Ratio 13.2 (10-20) Glucose 98 (70-99(Fasting)) mg/dl Calcium 9.5 (8.6-10.3) mg/dl Total Bilirubin 9.3 H (0.2-1.0) mg/dl AST 194 H (13-39) U/L ALT 348 H (7-52) U/L Alkaline Phosphatase 468 H (34-104) U/L Total Protein 7.3 (6.0-8.3) gm/dl Albumin 4.1 (3.4-5.0) gm/dl Globulin 3.2 (2.5-4.0) gm/dl Albumin/Globulin Ratio 1.3 (0.9-2) Lipase 4 L (11-82) U/L Urine Color Dark Yellow Urine Appearance Clear (Clear) Urine pH 6.0 (4.5-7.5) Ur Specific [place] 1.006 (1.000-1.030) Urine Protein Negative (Negative) Urine Glucose (UA) Negative (Negative) Urine Ketones Negative (Negative) Urine Blood Negative (Negative) Urine Nitrite Negative (Negative) Urine Bilirubin 1+ H (Negative) Urine Urobilinogen Negative (Negative) Ur Leukocyte Esterase Trace H (Negative) Urine WBC (Auto) 0-5 (0-5) /hpf Urine RBC (Auto) 0-2 (0-2) /hpf U Hyaline Cast (Auto) 0-2 (0-2) /lpf U Epithel Cells (Auto) 0-2 (0-2) /hpf Urine Bacteria (Auto) None Seen (None Seen) Urine Comment Administered Medications Hydroxyzine HCl (Hydroxyzine Hcl 25 Mg Tab) 25 mg PO Q6H PRN PRN Reason: itch Stop: 01/09/25 17:49 Last Admin: 12/10/24 19:26 Dose: 25 mg Documented By: Discharge Plan Visit Data Chief Complaint: Referred by Doctor Stated Complaint: BILIRUBIN ED Provider: Juan Garcia Discharge Problem: Choledocholithiasis, Elevated bilirubin, Transaminitis Patient Disposition: Admitted As Inpatient Condition: Fair Discharge Instructions Interventions: ED Discharge Assessment Last Done: 12/10/24 20:50
[2024-12-10 16:08] LABS: Anisocytosis Present; Hematocrit (blood only) 42.7 % (37.0-47.0); Hemoglobin 14.1 g/dl (12.0-16.0); Immature Granulocytes # (auto) 0.03 K/uL (0.01-0.20); Immature Granulocytes % (auto) 0.3 %; Mean Corpuscular Hemoglobin 25.5 pg (25.0-34.0); Mean Corpuscular Volume 77.2 fL (80.0-100.0); Platelet Count 389 K/uL (130-400); Polychromasia 1+; RDW Standard Deviation 55.3 fL (36.4-46.3); Red Blood Count 5.53 M/uL (4.20-5.40); White Blood Count 10.57 K/ul (4.8-10.8)
--- NOTE | 2024-12-10 19:19 | History & Physical Report ---
Date of Service December 10, 2024 Assessment & Plan (1) Choledocholithiasis: Plan: As above in the HPI. (2) Pruritus: Plan: As above in the HPI. (3) Acute dehydration: Plan: As above in the HPI. History of Present Illness Chief Complaint: "I started seeing my stool turn from brown to light yusra and my pee turned from yellow to dark orange 5 days ago. No bleeding. No nausea or vomit or diarrhea or belly pain. No fevers or chills. Never had this happen to me before. Then my eyes started turning from white to light yellow 3 days ago. Then I started to itch all over my arms 2 days ago. Now I am in the ER trying to figure out what is going on." Primary Care Provider: Patricia Gillis MD 74 years old female with PMH of FULL CODE @ home, obesity with BMI 32.7 (height 157.5 cm; weight 81.0 kg), BERTRAM on nocturnal CPAP 13 cm H2O, allergic rhinitis on cetirizine 5mg PO qpm prn allergic rhinitis, peptic ulcer disease (diagnosed in 2023) on omeprazole 40mg PO daily, followed by microcytic, hypochromic anemia for which patient received ferrlecit IV x 6 doses (completed in January 2019), followed by the development of secondary polycythemia of unclear etiology and followed by [facility] Dr. Alba Pritchard, hyperlipidemia on rosuvastatin 5mg PO qhs, paroxysmal AFIB s/p [employer] PPM (implant date 06/10/2019, [facility] CARDS Dr. Faraz Jackson) on flecainide 150mg PO bid and diltiazem 240mg PO daily, and HTN on losartan 50mg PO qam and spironolactone 25mg PO qam, who reports: "I started seeing my stool turn from brown to light yusra and my pee turned from yellow to dark orange 5 days ago. No bleeding. No nausea or vomit or diarrhea or belly pain. No fevers or chills. Never had this happen to me before. Then my eyes started turning from white to light yellow 3 days ago. Then I started to itch all over my arms 2 days ago. Now I am in the ER trying to figure out what is going on." Patient denies antecedent/coincident fevers, chills, diaphoresis, cough, wheeze, sore throat, hemoptysis, chest pains, palpitations, pleurisy, nausea, vomiting, diarrhea, abdominal pain, pelvic pain, hematemesis, hematochezia, melena, hematuria, dysuria, frequency, urgency, headaches, dizziness, lightheadedness, visual changes, hearing changes, weakness, falls, syncope, trauma, travel histo ry, sick contacts, or food/drug ingestions novel or new. All other review of systems are reported as negative by the patient on admission date 12/10/2024. In [facility] ER bed #C12, patient was afebrile @ 36.9 degrees Celsius, HR 76, RR 18, O2 sat 97% on room air, and BP 164/88 (12/10/2024, 3:13pm). Exam was noted for sallow complexion, scleral icterus, and lichen ification/excoriation of bilateral forearms due to pruritus. Labs in [facility] ER bed #C12 included: WBC 9.48, Hb 14.2, MCV 79.0, MCHC 31.9, platelet 408 (12/10/2024, 10:05am). WBC 10.57, N77 L12 M9 E1 B1, Hb 14.1, MCV 77.2, MCHC 33.0, platelet 389 (12/10/2024, 3:25pm). Na 136, K 3.9, BUN 15, creatinine 1.14, GFR 49.9, glucose 98, Ca 9.5 (12/10/2024, 3:25pm). AST 203, ALT 366, ALK PHOS 456, TBili 9.3 (12/10/2024, 10:05am). AST 194, ALT 348, ALK PHOS 468, TBili 9.3 (12/10/2024, 3:25pm). Lipase 4 U/L (12/10/2024, 3:25pm). U/A: dark yellow, LE trace, nitrite-, 1+ bilirubin, urobilinogen-, WBC 0-2, RBC 0-2, epithelial cells 0-2, bacteria 0 (12/10/2024, 3:25pm). Additional testing in [facility] ER bed #C12 included: Abdominal U/S (12/10/2024, 11:32am): 1. Gallbladder sludge without evidence of acute cholecystitis. 2. Interval biliary dilatation. This could be due to common duct stone which is not visualized or a nonvisualized pancreatic head mass, or other finding. EKG (12/10/2024, 5:15pm): Atrial-pacing @ 60, RI 220, QTC 450 (by my review). Patient was subsequently admitted to the inpatient hospitalist service @ [facility] on 12/10/2024 with the following diagnoses: 1. R/O choledocholithiasis causing jaundice. 2. Pruritus caused by bile salts in skin in patient with jaundice with admission total bilirubin 9.3 mg/dL (12/10/2024, 10:05am, 3:25pm). 3. Mild dehydration with creatinine 1.14 mg/dL, GFR 49.9 mL/min (12/10/2024, 3:25pm). To address #1, patient was rejected by [facility] ER for patient transfer to [facility] ER to undergo ERCP @ [facility]. Patient subsequently will remain at [facility] until Friday morning (12/13/2024) when patient will undergo ERCP at [facility]. In the interim, I will trend LFT and bilirubin levels over the weekend. To address #2, patient was started on hydroxyzine 25mg PO q6 prn pruritus due to bile salts in skin in this patient with cholestatic liver disease. To address #3, patient was started on 1 liter of 0.9% NS @ 81 mL/hr (12/10/2024, 7:18pm), based on a delivery rate of 1 mL of 0.9% NS per kg of body weight per hour, and a body weight of 81.0 kg. I will check fluid-volume status and creatinine level in the 12/11/2024 am. Allergies Allergy/AdvReac Type Severity Reaction Status Date / Time Sulfa (Sulfonamide Allergy Intermediate RASH/HIVES Verified 12/10/24 17:01 Antibiotics) NSAIDS (Non-Steroidal AdvReac Severe HX OF Verified 12/10/24 17:01 Anti-Inflamma BLEEDING ULCERS Penicillins AdvReac Intermediate UPSET Verified 12/10/24 17:01 STOMACH - CAN TOLERATE IF NEEDED codeine AdvReac Unknown PROJECTILE Verified 12/10/24 17:01 VOMITING,HEADACHE Home Medications Medication Instructions Recorded Confirmed Type calcium carbonate (Calcium 600) 600 mg PO BIDM 08/06/18 12/10/24 History cholecalciferol (vitamin D3) 125 5,000 unit PO QAM 08/06/18 12/10/24 History mcg (5,000 unit) tablet (Vitamin D3) coenzyme Q10 100 mg capsule 200 mg PO QAM 08/06/18 12/10/24 History (CoQ-10) magnesium oxide 400 mg PO BID 08/17/18 12/10/24 History aspirin 81 mg tablet,delayed 81 mg PO DAILY 10/01/19 12/10/24 History release (Adult Low Dose Aspirin) CPAP Machine #1 ea 02/08/20 12/10/24 Rx cetirizine 10 mg tablet (Zyrtec) 5 mg PO QPM PRN allergy symptoms 05/22/20 12/10/24 History glucosamine [id number] 1 tab PO BID 07/20/21 12/10/24 History 500 mg-167 mg-400 mg tablet omeprazole 40 mg capsule,delayed 40 mg PO DAILY #90 caps 03/09/24 12/10/24 Rx release losartan 50 mg tablet 50 mg PO QAM #90 tabs 05/18/24 12/10/24 Rx spironolactone 25 mg tablet 25 mg PO QAM #90 tabs 05/18/24 12/10/24 Rx flecainide 150 mg tablet 150 mg PO Q12H #180 tabs 05/31/24 12/10/24 Rx furosemide 20 mg tablet (Lasix) 20 mg PO Q OTHER DAY PRN edema #45 06/07/24 12/10/24 Rx tabs diltiazem HCl 240 mg 240 mg PO QAM #90 caps 07/19/24 12/10/24 Rx capsule,extended release 24 hr rosuvastatin 5 mg tablet 5 mg PO HS #90 tabs 08/24/24 12/10/24 Rx diclofenac sodium 1 % topical gel 2 g topical QID PRN JOINT/MUSCLE 12/10/24 12/10/24 History PAIN Past Med/Surg History Problem List (Updated 12/10/24 @ 19:28 by Christaino Horowitz MD, PhD) Pruritus Acute dehydration Choledocholithiasis Osteopenia Dizziness Encounter for pre-operative examination Sinus node dysfunction Acute upper respiratory infection Cardiac pacemaker Encounter for examination following treatment at hospital Status post placement of cardiac pacemaker Symptomatic bradycardia (Acute) Paroxysmal A-fib (Acute) Breast tenderness Edema of lower extremity (Chronic) Routine health maintenance (Chronic) History of loop recorder Polycythemia (Chronic) Nocturnal hypoxemia BERTRAM on CPAP (Chronic) Leukocytosis (Acute) Hypertension (Chronic) Anticoagulant long-term use (Acute) Dyspnea on exertion Paroxysmal atrial fibrillation (Chronic) Hypercholesterolemia (Chronic) Chronic reflux esophagitis (Acute) Medical History (Updated 12/10/24 @ 19:28 by Christiano Horowitz MD, PhD) Tachy-milagros syndrome Psoas hematoma, left, secondary to anticoagulant therapy Gastric ulcer Scoliosis Osteoarthritis GERD (gastroesophageal reflux disease) Temporomandibular joint disorder Migraine HX OF Pulmonary embolism OVER 20 YEARS AGO (CAUSED BY HORMONE REPLACEMENT THERAPY) Low iron IV INFUSIONS PRN Surgical History History of oophorectomy History of knee surgery History of incision and drainage Of Skin Abscess History of hernia repair History of bladder surgery History of laparoscopy History of dilatation and curettage History of total abdominal hysterectomy History of total hip arthroplasty LEFT History of esophagogastroduodenoscopy (EGD) History of herniorrhaphy History of tooth extraction History of tonsillectomy History of adenoidectomy Family History Father , at 86 years of age from natural causes. Atrial fibrillation COPD (chronic obstructive pulmonary disease) Mother , at 83 years of age from natural causes. Coronary heart disease Hx of CABG Grandfather (Maternal) Cerebral hemorrhage Sister Atrial fibrillation Leaky heart valve Celiac disease Son Myocardial infarction MS at age 51 Denies family history of Ovarian cancer Prostate cancer Crohn's disease Breast cancer Colorectal cancer Social History Smoking Status: Never smoker Second Hand Exposure: No ( A CHILD); Do You Dip or Chew Tobacco: No; Hx Alcohol Use: Yes Alcohol type: wine Alcohol Intake Frequency: Monthly or Less Hx Substance Use: No Preferred Language: Frisian Communication Ability: Effective Visual Impairment: Limited Hearing Ability: Normal Metallographic Technician Required: No Beliefs That Will Affect Care: None marital status: Current Living Situation: Spouse current occupational status: retired How many Children do You have: 2 Feels Safe at Home: Yes Childhood Exposure to Second-Hand Smoke: Yes Diet: other Diet Comment: Low Sugar caffeine: Yes during the past year weight has: remained stable Dental Care, Regularly: Yes Physical Activity Frequency: 1-2 Times per Week Physical Activity Frequency Comment: Due to hematoma Seatbelt Use: always Sunscreen Use: Yes Do you think of yourself as: straight/heterosexual Gender Identity: Female Assistive Devices: Cane and Glasses Review of Systems Constitutional: As above in the HPI. Physical Exam Constitutional: General: Uncomfortable with patient actively scratching bilateral forearms (most probably due to bile salt deposition in skin in the setting of cholestatic liver disease), yet cooperative, coherent. Wide awake and alert. Not confused, lethargic, or obtunded. Patient speaks in complete, fluent, and articulate sentences without pause, interruption, cough, or wheeze. HEENT: Normocephalic, atraumatic. Pupils equally round and reactive to light. Scleral icterus. No nystagmus, gaze paresis, anisocoria, miosis, mydriasis, hyphema, scleral injection, conjunctivitis, or pterygium. No otorrhea. No pharyngeal erythema, edema, or discharge. Neck: Supple, no stridor, bruit, goiter, or hepato-jugular reflux. Jugular venous pressure is estimated to be 3 cm above the sternal angle of Ricky, which in turn, is 5 cm above the level of the right atrium; with jugular venous pressure estimated to be 8 cm, then, there is no jugular venous distention on 12/10/2024. Lymphatics: No cervical (anterior/posterior), supraclavicular, infraclavicular, axillary, epitrochlear, or inguinal adenopathy. Chest: Symmetric rise and fall with respirations. Non-tender to palpation. Lungs: Clear to auscultation and percussion. No audible expiratory wheeze, egophony, pectoriloquy, increase in tactile fremitus, or flatness/dullness to percussion at the bases. Heart: RRR. S1 and S2 noted. No S3 or S4 summation gallop. No tripartite friction rub. Grade II/ early systolic murmur @ LLSB without radiation to the carotids, axilla, or back, and which remains invariant in regards to the respiratory cycle. Abdomen: Soft, non-tender, non-distended. No rebound, guarding, Reyes's sign, or organomegaly. Bowel sounds auscultated in all 4 quadrants. Extremities: No clubbing, cyanosis, or edema in upper extremities or lower extremities bilaterally. 2+ pedal pulses bilaterally. Lichenification/excoriation of bilateral forearms due to pruritus. Skin: Sallow complexion. No decubitus ulcer or enanthem. Genito-urinary: No urethral discharge. No dodge catheter. Neurology: Alert and oriented in regards to person, place, time, and situation. 5/5 motor strength in all 4 extremities, both proximally and distally. No pronator drift. No dysarthria. No facial droop. Psychiatry: No homicidal ideation. No suicidal ideation. No flat affect; smiles appropriately. Results & Data Results & Data Vital Signs (Past 12 Hours) Vital Signs Temp Pulse Pulse Resp BP BP Pulse Ox 12/10/24 18:42 65 23 96 12/10/24 18:06 67 18 146/75 H 98 12/10/24 17:03 63 18 136/74 94 12/10/24 15:50 61 12/10/24 15:36 62 18 148/74 H 97 12/10/24 15:13 36.9 C 76 18 164/88 H 94 O2 Del Method 12/10/24 18:42 12/10/24 18:06 12/10/24 17:03 12/10/24 15:50 12/10/24 15:36 Room Air 12/10/24 15:13 Room Air Laboratory Results As above in the HPI. Diagnostic Findings As above in the HPI. Medications Administered As above in the HPI. Code Status & VTE Plan VTE Prophylaxis Plan VTE Prophylaxis will be ordered: Yes PG Care Time/CCT Total # of Minutes Spent Total Time Spent with Patient: Total time spent is greater than 50% in coordination of care (as documented) at patient's floor/unit and/or counseling patient: Coding Level of Care Code 04875 INT INP/OBS CARE 2/55MIN Diagnoses Choledocholithiasis K80.50 Pruritus L29.9 Acute dehydration E86.0
[2024-12-10 20:33] LABS: INR 1.0 (0.9-1.1); Prothrombin Time 10.9 Seconds (9.0-12.0)
[2024-12-10] MEDS: FLECAINIDE ACETATE 100 MG TABLET PO SCH (22:48)
[2024-12-10] MEDS: HEPARIN SOD 5,000 UNIT/0.5 ML VIAL SQ SCH (22:51)
[2024-12-10] MEDS: SODIUM CHLORIDE 0.9% 1,000 ML IV ONE (22:52)
[2024-12-11] MEDS: MELATONIN 3 MG TAB PO PRN (02:05)
[2024-12-11 07:26] LABS: Hematocrit (blood only) 35.5 % (37.0-47.0); Hemoglobin 12.1 g/dl (12.0-16.0); Immature Granulocytes # (auto) 0.04 K/uL (0.01-0.20); Immature Granulocytes % (auto) 0.5 %; Mean Corpuscular Hemoglobin 25.7 pg (25.0-34.0); Mean Corpuscular Volume 75.4 fL (80.0-100.0); Platelet Count 345 K/uL (130-400); RDW Standard Deviation 53.5 fL (36.4-46.3); Red Blood Count 4.71 M/uL (4.20-5.40); White Blood Count 8.20 K/ul (4.8-10.8)
[2024-12-11 07:47] LABS: Alanine Aminotransferase 240.0 U/L (7-52); Albumin Globulin Ratio 1.3 (0.9-2); Alkaline Phosphatase 363.0 U/L (34-104); Anion Gap 8.0 (3-11); Bilirubin,Total 8.1 mg/dl (0.2-1.0); Blood Urea Nitrogen 16.0 mg/dl (6-23); Calcium 8.5 mg/dl (8.6-10.3); Carbon Dioxide 22.0 mmol/L (21-32); Chloride 107.0 mmol/L (98-107); Creatinine Clr Calc Pharmacy 46.6 ml/min; Globulin 2.4 gm/dl (2.5-4.0); Glucose 95.0 mg/dl (70-99(Fasting)); Potassium 4.1 mmol/L (3.5-5.1); Sodium 137.0 mmol/L (136-145); Total Protein 5.6 gm/dl (6.0-8.3)
[2024-12-11 07:52] LABS: Anisocytosis Present; Ovalocytes 1+; Polychromasia 1+; Target Cells 1+
[2024-12-11] MEDS: ASPIRIN 81 MG ECTAB PO SCH (10:08)
[2024-12-11] MEDS: LOSARTAN POTASSIUM 50 MG TAB PO SCH (10:09)
[2024-12-11] MEDS: HYDROCORTISONE 1% CRM 30 GM TUBE EXT PRN (14:39)
--- NOTE | 2024-12-11 18:21 | Hospitalist Progress Note ---
Date of Service December 11, 2024 Assessment & Plan (1) Choledocholithiasis: Plan: To address #1, patient was rejected by [facility] ER for patient transfer to [facility] ER to undergo ERCP @ [facility]. Patient subsequently will remain at [facility] until Friday morning (12/13/2024) when patient will undergo ERCP at [facility]. In the interim, I will trend LFT and bilirubin levels over the weekend. cf., AST 203, ALT 366, ALK PHOS 456, TBili 9.3 (12/10/2024, 10:05am). cf., AST 194, ALT 348, ALK PHOS 468, TBili 9.3 (12/10/2024, 3:25pm). cf., AST 127, ALT 240, ALK PHOS 363, TBili 8.1 (12/11/2024, 6:44am). (2) Pruritus: Plan: To address #2, patient was started on hydroxyzine 25mg PO q6 prn pruritus due to bile salts in skin in this patient with cholestatic liver disease. Patient subsequently reports that pruritus of the bilateral forearms persists and remains unchanged even after having received hydroxyzine 25mg PO q6 prn pruritus due to bile salts in skin in this patient with cholestatic liver disease, x 3 doses (12/10/2024, 7:26pm; 12/11/2024, 12:32am, 10:09am). Hence, I have opted to D/C hydrozyzine 25mg PO q6 prn pruritus due to bile salts in skin in this patient with cholestatic liver disease on 12/11/2024. In its place, I have started patient on hydrocortisone 1% ointment applied topically to the bilateral forearms qid prn pruritus due to bile salts in skin in this patient with cholestatic liver disease (12/11/2024, 2:39pm). Patient subsequently reports significant improvement in pruritus due to bile salts in skin in this patient with cholestatic liver disease. (3) Acute dehydration: Plan: To address #3, patient was started on 1 liter of 0.9% NS @ 81 mL/hr (12/10/2024, 7:18pm), based on a delivery rate of 1 mL of 0.9% NS per kg of body weight per hour, and a body weight of 81.0 kg. Acute dehydration subsequently RESOLVED. cf., creatinine 1.14, GFR 49.9 mL/min (12/10/2024, 3:25pm). cf., creatinine 1.01, GFR 57.7 mL/min (12/11/2024, 6:44am). Hence, I have opted to hold off further IV fluid rehydration, as patient continues to tolerate a regular diet well since 12/10/2024 dinner meal. I will check fluid-volume status and creatinine level in the 12/12/2024 am. Admission and Anticipated Discharge Date Admission Date: December 10, 2024 Subjective "I feel better than yesterday, but my forearms are still itchy. The hydroxyzine is not working. Can I try something else to cut the itch down?" Review of Systems Constitutional: Positive for bilateral forearm pruritus, most probably due to bile salt deposition in the forearms in the setting of acute cholestatic liver disease. Negative for antecedent/coincident fevers, chills, diaphoresis, cough, wheeze, sore throat, hemoptysis, chest pains, palpitations, pleurisy, nausea, vomiting, diarrhea, abdominal pain, pelvic pain, hematemesis, hematochezia, melena, hematuria, dysuria, frequency, urgency, headaches, dizziness, lightheadedness, visual changes, hearing changes, weakness, falls, syncope, trauma, travel history, sick contacts, or food/drug ingestions novel or new. All other review of systems are reported as negative by the patient on 12/11/2024. Physical Exam Constitutional: General: Uncomfortable with patient actively scratching bilateral forearms (most probably due to bile salt deposition in skin in the setting of cholestatic liver disease), yet cooperative, coherent. Wide awake and alert. Not confused, lethargic, or obtunded. Patient speaks in complete, fluent, and articulate sentences without pause, interruption, cough, or wheeze. HEENT: Normocephalic, atraumatic. Pupils equally round and reactive to light. Scleral icterus. No nystagmus, gaze paresis, anisocoria, miosis, mydriasis, hyphema, scleral injection, conjunctivitis, or pterygium. No otorrhea. No pharyngeal erythema, edema, or discharge. Neck: Supple, no stridor, bruit, goiter, or hepato-jugular reflux. Jugular venous pressure is estimated to be 3 cm above the sternal angle of Ricky, which in turn, is 5 cm above the level of the right atrium; with jugular venous pressure estimated to be 8 cm, then, there is no jugular venous distention on 12/11/2024. Lymphatics: No cervical (anterior/posterior), supraclavicular, infraclavicular, axillary, epitrochlear, or inguinal adenopathy. Chest: Symmetric rise and fall with respirations. Non-tender to palpation. Lungs: Clear to auscultation and percussion. No audible expi ratory wheeze, egophony, pectoriloquy, increase in tactile fremitus, or flatness/dullness to percussion at the bases. Heart: RRR. S1 and S2 noted. No S3 or S4 summation gallop. No tripartite friction rub. Grade II/ early systolic murmur @ LLSB without radiation to the carotids, axilla, or back, and which remains invariant in regards to the respiratory cycle. Abdomen: Soft, non-tender, non-distended. No rebound, guarding, Reyes's sign, or organomegaly. Bowel sounds auscultated in all 4 quadrants. Extremities: No clubbing, cyanosis, or edema in upper extremities or lower extremities bilaterally. 2+ pedal pulses bilaterally. Lichenification/excoriation of bilateral forearms due to pruritus. Skin: Sallow complexion. No decubitus ulcer or enanthem. Genito-urinary: No urethral discharge. No dodge catheter. Neurology: Alert and oriented in regards to person, place, time, and situation. 5/5 motor strength in all 4 extremities, both proximally and distally. No pronator drift. No dysarthria. No facial droop. Psychiatry: No homicidal ideation. No suicidal ideation. No flat affect; smiles appropriately. Results & Data Results & Data Vital Signs (Past 12 Hours) Vital Signs Temp Pulse Resp BP Pulse Ox O2 Del Method 12/11/24 14:53 36.5 C 59 L 18 103/65 95 Room Air 12/11/24 07:39 36.7 C 62 15 106/65 95 Room Air Laboratory Results WBC 9.48, Hb 14.2, MCV 79.0, MCHC 31.9, platelet 408 (12/10/2024, 10:05am). WBC 10.57, N77 L12 M 9 E1 B1, Hb 14.1, MCV 77.2, MCHC 33.0, platelet 389 (12/10/2024, 3:25pm). WBC 8.20, N72 L12 M12 E2 B1, Hb 12.1, MCV 75.4, MCHC 34.1, platelet 345 (12/11/2024, 6:44am). Na 136, K 3.9, BUN 15, creatinine 1.14, GFR 49.9, glucose 98, Ca 9.5 (12/10/2024, 3:25pm). Na 137, K 4.1, BUN 16, creatinine 1.01, GFR 57.7, glucose 95, Ca 8.5 (2024, 6:44am). AST 203, ALT 366, ALK PHOS 456, TBili 9.3 (12/10/2024, 10:05am). AST 194, ALT 348, ALK PHOS 468, TBili 9.3 (12/10/2024, 3:25pm). AST 127, ALT 240, ALK PHOS 363, TBili 8.1 (12/11/2024, 6:44am). Lipase 4 U/L (12/10/2024, 3:25pm). U/A: dark yellow, LE trace, nitrite-, 1+ bilirubin, urobilinogen-, WBC 0-2, RBC 0-2, epithelial cells 0-2, bacteria 0 (12/10/2024, 3:25pm). Diagnostic Findings Abdominal U/S (12/10/2024, 11:32am): 1. Gallbladder sludge without evidence of acute cholecystitis. 2. Interval biliary dilatation. This could be due to common duct stone which is not visualized or a nonvisualized pancreatic head mass, or other finding. EKG (12/10/2024, 5:15pm): Atrial-pacing @ 60, HI 220, QTC 450 (by my review). PG Care Time/CCT Total # of Minutes Spent Total Time Spent with Patient: Total time spent is greater than 50% in coordination of care (as documented) at patient's floor/unit and/or counseling patient: Coding Level of Care Code 71492 SUB INP/OBS CARE 2MIN Diagnoses Choledocholithiasis K80.50 Pruritus L29.9 Acute dehydration E86.0
[2024-12-12 07:43] LABS: Alanine Aminotransferase 218.0 U/L (7-52); Alkaline Phosphatase 380.0 U/L (34-104); Bilirubin,Total 9.2 mg/dl (0.2-1.0); Total Protein 5.8 gm/dl (6.0-8.3)
--- NOTE | 2024-12-12 09:42 | Gastrointestinal Consultation ---
Date of Consultation December 12, 2024 Assessment & Plan (1) Transaminitis: Pleasant woman with jaundice, dilated biliary system and sludge. More than likely she has choledocholithiasis but she could have ampullary or pancreatic tumor. I agree ERCP is warranted perhaps also EUS at some point. Will arrange ERCP tomorrow with Dr. Bonds. Could consider MRCP but don't necessarily see the need for that. History of Present Illness Reason for Consultation: evaluate for choledocholithiasis Attending Physician: Christiano Horowitz MD, PhD History of Present Illness 74 year old female with new jaundice she says started about a week ago. She also noticed her urine turning dark and her stool getting pale. She denies abdominal pain but does report pain in her back. Prior to this onset she has had no weight loss but since her symptoms started she has lost five pounds. When she had her ultrasound yesterday the examination was tender when the probe was pressed under her liver. LFT's were normal in June and CT was normal. Ultrasound shows sludge and intra and extrahepatic ductal dilatation. She has a history of bleeding ulcers. She has never had a colonoscopy. She has had negative cologuard testing. Allergies Allergy/AdvReac Type Severity Reaction Status Date / Time Sulfa (Sulfonamide Allergy Intermediate RASH/HIVES Verified 12/10/24 17:01 Antibiotics) NSAIDS (Non-Steroidal AdvReac Severe HX OF Verified 12/10/24 17:01 Anti-Inflamma BLEEDING ULCERS Penicillins AdvReac Intermediate UPSET Verified 12/10/24 17:01 STOMACH - CAN TOLERATE IF NEEDED codeine AdvReac Unknown PROJECTILE Verified 12/10/24 17:01 VOMITING,HEADACHE Home Medications Medication Instructions Recorded Confirmed Type calcium carbonate (Calcium 600) 600 mg PO BIDM 08/06/18 12/10/24 History cholecalciferol (vitamin D3) 125 5,000 unit PO QAM 08/06/18 12/10/24 History mcg (5,000 unit) tablet (Vitamin D3) coenzyme Q10 100 mg capsule 200 mg PO QAM 08/06/18 12/10/24 History (CoQ-10) magnesium oxide 400 mg PO BID 08/17/18 12/10/24 History aspirin 81 mg tablet,delayed 81 mg PO DAILY 10/01/19 12/10/24 History release (Adult Low Dose Aspirin) CPAP Machine #1 ea 02/08/20 12/10/24 Rx cetirizine 10 mg tablet (Zyrtec) 5 mg PO QPM PRN allergy symptoms 05/22/20 12/10/24 History glucosamine BGm-gkq-wgnebydejqs 1 tab PO BID 07/20/21 12/10/24 History 500 mg-167 mg-400 mg tablet omeprazole 40 mg capsule,delayed 40 mg PO DAILY #90 caps 03/09/24 12/10/24 Rx release losartan 50 mg tablet 50 mg PO QAM #90 tabs 05/18/24 12/10/24 Rx spironolactone 25 mg tablet 25 mg PO QAM #90 tabs 05/18/24 12/10/24 Rx flecainide 150 mg tablet 150 mg PO Q12H #180 tabs 05/31/24 12/10/24 Rx furosemide 20 mg tablet (Lasix) 20 mg PO Q OTHER DAY PRN edema #45 06/07/24 12/10/24 Rx tabs diltiazem HCl 240 mg 240 mg PO QAM #90 caps 07/19/24 12/10/24 Rx capsule,extended release 24 hr rosuvastatin 5 mg tablet 5 mg PO HS #90 tabs 08/24/24 12/10/24 Rx diclofenac sodium 1 % topical gel 2 g topical QID PRN JOINT/MUSCLE 12/10/24 12/10/24 History PAIN Patient History Medical History Tachy-milagros syndrome Psoas hematoma, left, secondary to anticoagulant therapy Gastric ulcer Scoliosis Osteoarthritis GERD (gastroesophageal reflux disease) Temporomandibular joint disorder Migraine HX OF Pulmonary embolism OVER 20 YEARS AGO (CAUSED BY HORMONE REPLACEMENT THERAPY) Low iron IV INFUSIONS PRN Surgical History History of oophorectomy History of knee surgery History of incision and drainage Of Skin Abscess History of hernia repair History of bladder surgery History of laparoscopy History of dilatation and curettage History of total abdominal hysterectomy History of total hip arthroplasty LEFT History of esophagogastroduodenoscopy (EGD) History of herniorrhaphy History of tooth extraction History of tonsillectomy History of adenoidectomy Family History Father , at 86 years of age from natural causes. Atrial fibrillation COPD (chronic obstructive pulmonary disease) Mother , at 83 years of age from natural causes. Coronary heart disease Hx of CABG Grandfather (Maternal) Cerebral hemorrhage Sister Atrial fibrillation Leaky heart valve Celiac disease Son Myocardial infarction [place] at age 51 Denies family history of Ovarian cancer Prostate cancer Crohn's disease Breast cancer Colorectal cancer Social History Smoking Status: Never smoker Second Hand Exposure: No; Do You Dip or Chew Tobacco: No; Hx Alcohol Use: No Hx Substance Use: No Preferred Language: Swedish Communication Ability: Effective Visual Impairment: Limited Hearing Ability: Normal Conference Service Coordinator Required: No Beliefs That Will Affect Care: None marital status: Current Living Situation: Spouse current occupational status: retired How many Children do You have: 2 Feels Safe at Home: Yes Childhood Exposure to Second-Hand Smoke: Yes Diet: other Diet Comment: Low Sugar caffeine: Yes during the past year weight has: remained stable Dental Care, Regularly: Yes Physical Activity Frequency: 1-2 Times per Week Physical Activity Frequency Comment: Due to hematoma Seatbelt Use: always Sunscreen Use: Yes Do you think of yourself as: straight/heterosexual Gender Identity: Female Assistive Devices: Cane, CPAP, Glasses, Hearing Aid - Bilateral and Walker Review of Systems Review of Systems: All systems reviewed & are unremarkable except as noted in HPI & below Physical Exam Physical Exam: Pleasant icteric female in no distress Constitutional: WD/WN, vitals as above Neck: trachea midline, no thyromegaly Respiratory: normal respiratory effort, lungs clear to auscultation Cardiovascular: RRR, no murmur, no edema Gastrointestinal (Abdomen): normal bowel sounds, soft, nontender, no hepatosplenomegaly Results & Data Vital Signs (Past 12 Hours) Vital Signs Temp Pulse Resp BP Pulse Ox O2 Del Method 12/12/24 07:13 36.3 C L 65 16 113/65 93 Room Air Laboratory Results 12/12/24 Range/Units 06:38 Total Bilirubin 9.2 H (0.2-1.0) mg/dl Direct Bilirubin 5.8 H (0-0.2) mg/dl AST 123 H (13-39) U/L ALT 218 H (7-52) U/L Alkaline Phosphatase 380 H (34-104) U/L Total Protein 5.8 L (6.0-8.3) gm/dl Albumin 3.3 L (3.4-5.0) gm/dl
[2024-12-12] MEDS: HYDROCORTISONE 2.5% OINT 20 GM TUBE EXT PRN (11:49)
--- NOTE | 2024-12-12 12:20 | Hospitalist Progress Note ---
Date of Service December 12, 2024 Assessment & Plan (1) Choledocholithiasis: Plan: To address #1, patient was rejected by [facility] ER for patient transfer to [facility] ER to undergo ERCP @ [facility]. Patient subsequently will remain at [facility] until Friday morning (12/13/2024) when patient will undergo ERCP at [facility]. Of note, patient has a Medtronic PPM and does not know if Medtronic PPM is MRI compatible or not MRI compatible. Hence, I have not ordered MRCP for this patient. In the interim, I will trend LFT and bilirubin levels over the weekend. cf., AST 203, ALT 366, ALK PHOS 456, TBili 9.3 (12/10/2024, 10:05am). cf., AST 194, ALT 348, ALK PHOS 468, TBili 9.3 (12/10/2024, 3:25pm). cf., AST 127, ALT 240, ALK PHOS 363, TBili 8.1 (12/11/2024, 6:44am). cf., AST 123, ALT 218, ALK PHOS 380, TBili 9.2 (12/12/2024, 6:38am). (2) Pruritus: Plan: To address #2, patient was started on hydroxyzine 25mg PO q6 prn pruritus due to bile salts in skin in this patient with cholestatic liver disease. Patient subsequently reports that pruritus of the bilateral forearms persists and remains unchanged even after having received hydroxyzine 25mg PO q6 prn pruritus due to bile salts in skin in this patient with cholestatic liver disease, x 3 doses (12/10/2024, 7:26pm; 12/11/2024, 12:32am, 10:09am). Hence, I have opted to D/C hydrozyzine 25mg PO q6 prn pruritus due to bile salts in skin in this patient with cholestatic liver disease on 12/11/2024. In its place, I started patient on hydrocortisone 1% ointment applied topically to the bilateral forearms qid prn pruritus due to bile salts in skin in this patient with cholestatic liver disease (12/11/2024, 2:39pm). Patient subsequently reports modest improvement in pruritus due to bile salts in skin in this patient with cholestatic liver disease. I subsequently discontinued hydrocortisone 2.5% ointment applied topically to the bilateral forearms qid prn pruritus due to bile salts in skin in this patient with cholestatic liver disease (,11:49am). Patient also requested a one-time dose of hydroxyzine 25mg PO x 1 dose; patient subsequently received hydroxyzine 25mg PO x 1 dose (12/12/2024, 11:49am). (3) Acute dehydration: Plan: To address #3, patient received 1 liter of 0.9% NS @ 81 mL/hr (12/10/2024, 7:18pm), based on a delivery rate of 1 mL of 0.9% NS per kg of body weight per hour, and a body weight of 81.0 kg. Acute dehydration subsequently RESOLVED. cf., creatinine 1.14, GFR 49.9 mL/min (12/10/2024, 3:25pm). cf., creatinine 1.01, GFR 57.7 mL/min (12/11/2024, 6:44am). Hence, I have opted to hold off further IV fluid rehydration, as patient continues to tolerate a regular diet well since 12/10/2024 dinner meal. I will check fluid-volume status and creatinine level in the 12/13/2024 am. Admission and Anticipated Discharge Date Admission Date: December 10, 2024 Subjective "I feel better than yesterday, but my forearms are still itchy. The hydrocortisone 1% cream is helping, but is there anything stronger I can use to cut down the itching in my forearms more?" Review of Systems Constitutional: Positive for bilateral forearm pruritus, most probably due to bile salt deposition in the forearms in the setting of acute cholestatic liver disease. Negative for antecedent/coincident fevers, chills, diaphoresis, cough, wheeze, sore throat, hemoptysis, chest pains, palpitations, pleurisy, nausea, vomiting, diarrhea, abdominal pain, pelvic pain, hematemesis, hematochezia, melena, hematuria, dysuria, frequency, urgency, headaches, dizziness, lightheadedness, visual changes, hearing changes, weakness, falls, syncope, trauma, travel history, sick contacts, or food/drug ingestions novel or new. All other review of systems are reported as negative by the patient on 12/12/2024. Physical Exam Constitutional: General: Uncomfortable with patient actively scratching bilateral forearms (most probably due to bile salt deposition in skin in the setting of cholestatic liver disease), yet cooperative, coherent. Wide awake and alert. Not confused, lethargic, or obtunded. Patient speaks in complete, fluent, and articulate sentences without pause, interruption, cough, or wheeze. HEENT: Normocephalic, atraumatic. Pupils equally round and reactive to light. Scleral icterus. No nystagmus, gaze paresis, anisocoria, miosis, mydriasis, hyphema, scleral injection, conjunctivitis, or pterygium. No otorrhea. No pharyngeal erythema, edema, or discharge. Neck: Supple, no stridor, bruit, goiter, or hepato-jugular reflux. Jugular venous pressure is estimated to be 3 cm above the sternal angle of Ricky, which in turn, is 5 cm above the level of the right atrium; with jugular venous pressure estimated to be 8 cm, then, there is no jugular venous distention on 12/12/2024. Lymphatics: No cervical (anterior/posterior), supraclavicular, infraclavicular, axillary, epitrochlear, or inguinal adenopathy. Chest: Symmetric rise and fall with respirations. Non-tender to palpation. Medtronic PPM in left chest wall in situ; unclear if Medtronic PPM is MRI compatible or not MRI compatible. Lungs: Clear to auscultation and percussion. No audible expiratory wheeze, egophony, pectoriloquy, increase in tactile fremitus, or flatness/dullness to percussion at the bases. Heart: RRR. S1 and S2 noted. No S3 or S4 summation gallop. No tripartite friction rub. Grade II/ early systolic murmur @ LLSB without radiation to the carotids, axilla, or back, and which remains invariant in regards to the respiratory cycle. Abdomen: Soft, non-tender, non-distended. No rebound, guarding, Reyes's sign, or organomegaly. Bowel sounds auscultated in all 4 quadrants. Extremities: No clubbing, cyanosis, or edema in upper extremities or lower extremities bilaterally. 2+ pedal pulses bilaterally. Lichenification/excoriation of bilateral forearms due to pruritus. Skin: Sallow complexion. No decubitus ulcer or enanthem. Genito-urinary: No urethral discharge. No dodge catheter. Neurology: Alert and oriented in regards to person, place, time, and situation. 5/5 motor strength in all 4 extremities, both proximally and distally. No pronator drift. No dysarthria. No facial droop. Psychiatry: No homicidal ideation. No suicidal ideation. No flat affect; smiles appropriately. Results & Data Results & Data Vital Signs (Past 12 Hours) Vital Signs Temp Pulse Resp BP Pulse Ox O2 Del Method 12/12/24 07:13 36.3 C L 65 16 113/65 93 Room Air Laboratory Results WBC 9.48, Hb 14.2, MCV 79.0, MCHC 31.9, platelet 408 (12/10/2024, 10:05am). WBC 10.57, N77 L12 M 9 E1 B1, Hb 14.1, MCV 77.2, MCHC 33.0, platelet 389 (12/10/2024, 3:25pm). WBC 8.20, N72 L12 M12 E2 B1, Hb 12.1, MCV 75.4, MCHC 34.1, platelet 345 (12/11/2024, 6:44am). Na 136, K 3.9, BUN 15, creatinine 1.14, GFR 49.9, glucose 98, Ca 9.5 (12/10/2024, 3:25pm). Na 137, K 4.1, BUN 16, creatinine 1.01, GFR 57.7, glucose 95, Ca 8.5 (12/11/2024, 6:44am). AST 203, ALT 366, ALK PHOS 456, TBili 9.3 (12/10/2024, 10:05am). AST 194, ALT 348, ALK PHOS 468, TBili 9.3 (12/10/2024, 3:25pm). AST 127, ALT 240, ALK PHOS 363, TBili 8.1 (12/11/2024, 6:44am). AST 123, ALT 218, ALK PHOS 380, TBili 9.2 (12/12/2024, 6:38am). Lipase 4 U/L (12/10/2024, 3:25pm). U/A: dark yellow, LE trace, nitrite-, 1+ bilirubin, urobilinogen-, WBC 0-2, RBC 0-2, epithelial cells 0-2, bacteria 0 (12/10/2024, 3:25pm). Diagnostic Findings Abdominal U/S (12/10/2024, 11:32am): 1. Gallbladder sludge without evidence of acute cholecystitis. 2. Interval biliary dilatation. This could be due to common duct stone which is not visualized or a nonvisualized pancreatic head mass, or other finding. EKG (12/10/2024, 5:15pm): Atrial-pacing @ 60, VT 220, QTC 450 (by my review). PG Care Time/CCT Total # of Minutes Spent Total Time Spent with Patient: Total time spent is greater than 50% in coordination of care (as documented) at patient's floor/unit and/or counseling patient: Coding Level of Care Code 17133 SUB INP/OBS CARE 2/35MIN Diagnoses Choledocholithiasis K80.50 Pruritus L29.9 Acute dehydration E86.0
--- NOTE | 2024-12-12 15:59 | Electrocardiogram Report ---
Test Reason : Blood Pressure : */* mmHG Vent. Rate : 60 BPM Atrial Rate : 60 BPM P-R Int : 220 ms QRS Dur : 86 ms QT Int : 450 ms P-R-T Axes : 113 -28 28 degrees QTcB Int : 450 ms Atrial-paced rhythm with prolonged AV conduction Low voltage QRS Abnormal ECG When compared with ECG of 29-Jun-2024 03:16, Electronic atrial pacemaker has replaced Electronic ventricular pacemaker Confirmed by Faraz Jackson ([id number]) on 12/12/2024 3:58:51 PM Referred By: Patricia Gillis Confirmed By: Faraz Jackson
--- NOTE | 2024-12-12 16:58 | Electrocardiogram Report ---
Test Reason : Blood Pressure : */* mmHG Vent. Rate : 72 BPM Atrial Rate : 227 BPM P-R Int : 246 ms QRS Dur : 104 ms QT Int : 438 ms P-R-T Axes : * 22 29 degrees QTcB Int : 479 ms Atrial-paced rhythm with prolonged AV conduction Low voltage QRS Abnormal ECG When compared with ECG of 10-Dec-2024 17:15, (unconfirmed) QRS voltage has decreased Nonspecific T wave abnormality now evident in Inferior leads Confirmed by Faraz Jackson ([id number]) on 12/12/2024 4:58:00 PM Referred By: Patricia Gillis Confirmed By: Faraz Jackson
--- NOTE | 2024-12-13 07:09 | Communication Note ---
Date of Service: December 13, 2024 OBSTRUCTIVE JAUNDICE, stone vs neoplasm. MRCP if pacemaker MRI safe. If not CT pancreatic protocol. Need diagnosis and potential resectabilty information prior to ercp.
[2024-12-13 07:26] VITALS: TEMP 98.6
[2024-12-13 09:18] LABS: Alanine Aminotransferase 201.0 U/L (7-52); Alkaline Phosphatase 399.0 U/L (34-104); Bilirubin,Total 11.4 mg/dl (0.2-1.0); Total Protein 5.9 gm/dl (6.0-8.3)
--- NOTE | 2024-12-13 12:44 | CT Scan Report ---
CT pancreas 3-phase wo/w con CLINICAL HISTORY: Elevated LFTs, weight loss, abd fullness, back pain. COMPARISON STUDY: CT of the abdomen and pelvis June 29, 2024. Right upper quadrant ultrasound Nov. TECHNIQUE: Unenhanced, arterial and venous phase imaging of the abdomen was performed. Intravenous in jection of 94 cc of Optiray 320 IV was uneventful. A dose lowering technique was utilized adhering to the principles of ALARA. FINDINGS: Dilatation of visualized portions of the ascending aorta measuring up to 4.3 cm remains unc hanged from earlier exams. Pacer leads are partially imaged. A large hiatal hernia with partially int rathoracic stomach is again noted. No pneumatosis, free air or portal venous gas is present. There ar e no hepatic lesions. Moderate intra and extrahepatic biliary ductal dilatation has developed since C T of June 29, 2024. There is abrupt narrowing of the common bile duct on image 125 of 193 within t he region of the pancreatic head. Moderate pancreatic ductal dilatation is also noted. The main pancr eatic duct measures 8 mm in caliber. There is a hypodense lesion within the pancreatic head which blue sures approximately 2.9 x 2.6 cm. This is somewhat cystic-appearing on the venous phase portion of th is examination. There is also a possible enhancing lesion within the pancreatic head on image 127 whi ch measures 2.4 x 2.3 cm. There is minimal peripancreatic stranding. No peripancreatic fluid collecti ons are present. There is mild narrowing of the portosplenic confluence. No involvement of the superi or mesenteric artery is identified. There is no abdominal lymphadenopathy. Spleen, adrenal glands and kidneys are unremarkable. Caliber and wall thickness of visualized small and large bowel are normal. Severe lumbar spine levoscoliosis is incidentally noted. IMPRESSION: 1. Moderate biliary and pancreatic ductal dilatation with abrupt cut off of the common bile and main pancreatic duct at the level the pancreatic head. 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 Minimal peripancreatic stranding. No peripancreatic flu id collections. Consideration for ERCP and EUS is recommended. 2. No evidence for metastatic disease within the abdomen. The suspected tumor abuts and mildly narrow s the portosplenic confluence. No involvement of the superior mesenteric artery. ACT 112: Positive. There are findings on this exam that require communication between the performing entity and the patient following Patient Test Result Information Act ([place] Act 112) guidelines. Electronically signed by: Rj Sin M.D. 12/13/2024 12:42 PM
[2024-12-13 15:09] VITALS: RESP 18; O2SAT 96
--- NOTE | 2024-12-13 15:11 | Communication Note ---
Date of Service: December 13, 2024 CT was reviewed at bedside w/ patient and requested family members present. We recommend transfer for EUS evaluation. [place] Text sent to primary team to recruiter coordinator rdinate. Recall [facility] as needed.
--- NOTE | 2024-12-13 16:03 | Discharge Summary ---
Discharge Summary Date of Service December 13, 2024 Principal Dx & Hospital Course #1 = Principal Diagnosis (1) Choledocholithiasis: To address #1, patient was rejected by [facility] ER for patient transfer from [facility] ER to [facility] ER to undergo ERCP @ [facility] on admission date 12/10/2024.. Patient subsequently remained at [facility] to undergo continued evaluation of her painless jaundice. Of note, patient has a Medtronic PPM and does not know if Medtronic PPM is MRI compatible or not MRI compatible. Hence, I did not order MRCP for this patient. In the interim, I trended LFT and bilirubin levels, as shown below: cf., AST 203, ALT 366, ALK PHOS 456, total bilirubin 9.3, direct bilirubin 5.4, indirect bilirubin 3.9 (12/10/2024, 10:05am). cf., AST 194, ALT 348, ALK PHOS 468, total bilirubin 9.3 (12/10/2024, 3:25pm). cf., AST 127, ALT 240, ALK PHOS 363, total bilirubin 8.1 (12/11/2024, 6:44am). cf., AST 123, ALT 218, ALK PHOS 380, total bilirubin 9.2, direct bilirubin 5.8, indirect bilirubin 3.4 (12/12/2024, 6:38am). cf., AST 109, ALT 201, ALK PHOS 399, total bilirubin 11.4, direct bilirubin 6.9, indirect bilirubin 4.5 (12/13/2024, 7:56am). cf., abdominal ultrasound (12/10/2024, 11:32am): 1. Pancreas is obscured by bowel gas artifact. 2. Large amount of gallbladder sludge. 3. No gallbladder wall thickening. 4. No pericholecystic fluid or ascites. 5. Common bile duct measures 11 mm diameter, dilated. Intrahepatic bile ducts are also dilated. This is an interval finding compared to the prior CT. 6. Deep portion of the liver is not well seen. Visualized liver is grossly unremarkable otherwise. 7. Right kidney shows no hydronephrosis. cf., CT abd/pelvis, 3 phase without/with IV contrast (12/13/2024, 10:31am): 1. Dilatation of visualized portions of the ascending aorta measuring up to 4.3 cm remains unchanged from earlier exams. 2. Pacer leads are partially imaged. 3. Large hiatal hernia with partially intrathoracic stomach is again noted. 4. No pneumatosis, free air or portal venous gas is present. 5. No hepatic lesions. 6. Moderate intra and extrahepatic biliary ductal dilatation has developed since CT of June 29, 2024. 7. Abrupt narrowing of the common bile duct on image 125 of 193 within the region of the pancreatic head. 8. Moderate pancreatic ductal dilatation is also noted. 9. Main pancreatic duct measures 8 mm in caliber. 10.Hypodense lesion within the pancreatic head which measures approximately 2.9 x 2.6 cm. This is somewhat cystic-appearing on the venous phase portion of this examination. 11.Possible enhancing lesion within the pancreatic head on image 127 which me asures 2.4 x 2.3 cm. 12.Minimal peripancreatic stranding. 13.No peripancreatic fluid collections are present. 14.Mild narrowing of the gamal-splenic confluence. 15.No involvement of the superior mesenteric artery is identified. 16.No abdominal lymphadenopathy. 17.Spleen, adrenal glands and kidneys are unremarkable. 18.Caliber and wall thickness of visualized small and large bowel are normal. 19.Severe lumbar spine levoscoliosis is incidentally noted. [facility] GI Dr. Emmanuel Bonds ordered above CT abd/pelvis, 3 phase without/with IV contrast (12/13/2024, 10:31am). Subsequently, Dr. Bonds recommended that patient be transferred to a tertiary facility capable of performing endoscopic ultrasound with biopsies of the 2 pancreatic head mass lesions. Subsequently, I called [facility] and [facility] ER Dr. Jourdan Tamayo graciously accepted patient to [facility] [place] for endoscopic ultrasound with biopsies of the 2 pancreatic head mass lesions @ [facility] [place] in the 12/14/[address] Tamayo stated that the same GI Service would perform endoscopic ultrasound with biopsies of the 2 pancreatic head mass lesions, irrespective of whether patient would be transferred to [facility] [place] or [facility] [place]. Hence, the deciding factor for patient to be transferred to [facility] in the 12/14/2024 am was that [facility] is [place]6 miles away from [facility]. In contrast, [facility] is 79.[address] away from [facility]. Hence, Dr. Tamayo reasoned that the shorter transport time to [facility] would appeal to the patient as the same GI Service would perform the endoscopic ultrasound with biopsies of the 2 pancreatic head mass lesions at either [facility] or [facility], and that in either case, the earliest that endoscopic ultrasound with biopsies of the 2 pancreatic head mass lesions could take place would be 12/14/2024 am, and not 12/13/2024 pm. To this end, Dr. Tamayo recommended that patient be made NPO after 12/14/2024, 12:00am, in preparation for endoscopic ultrasound with biopsies of the 2 pancreatic head mass lesions @ [facility] in the 12/14/2024 am. Patient concurs with this plan above. (2) Pruritus: To address #2, patient was started on hydroxyzine 25mg PO q6 prn pruritus due to bile salts in skin in this patient with cholestatic liver disease. Patient subsequently reported that pruritus of the bilateral forearms persisted and remained unchanged even after having received hydroxyzine 25mg PO q6 prn pruritus due to bile salts in skin in this patient with cholestatic liver disease, x 3 doses (12/10/2024, 7:26pm; 12/11/2024, 12:32am, 10:09am). Hence, I discontinued hydrozyzine 25mg PO q6 prn pruritus due to bile salts in skin in this patient with cholestatic liver disease on 12/11/2024. In its place, I started patient on hydrocortisone 1% ointment applied topically to the bilateral forearms qid prn pruritus due to bile salts in skin in this patient with cholestatic liver disease (12/11/2024, 2:39pm). Patient subsequently reported modest improvement in pruritus due to bile salts in skin in this patient with cholestatic liver disease. Hence, I subsequently started hydrocortisone 2.5% ointment applied topically to the bilateral forearms qid prn pruritus due to bile salts in skin in this patient with cholestatic liver disease (12/12/2024,11:49am). Patient also requested a one-time dose of hydroxyzine 25mg PO x 1 dose; patient subsequently received hydroxyzine 25mg PO x 1 dose (12/12/2024, 11:49am). Patient reported greater improvement in her complaint of pruritus of the bilateral forearms on 12/12/2024 pm and on 12/13/2024. [facility] subsequently received an electronic prescription for hydrocortisone 2.5% ointment applied topically to the bilateral forearms qid prn pruritus due to bile salts in skin in this patient with cholestatic liver disease, #30 grams, no refills, on 12/13/2024, 3:36pm. (3) Acute dehydration: To address #3, patient received 1 liter of 0.9% NS @ 81 mL/hr (12/10/2024, 7:18pm), based on a delivery rate of 1 mL of 0.9% NS per kg of body weight per hour, and a body weight of 81.0 kg. Acute dehydration subsequently RESOLVED. cf., creatinine 1.14, GFR 49.9 mL/min (12/10/2024, 3:25pm). cf., creatinine 1.01, GFR 57.7 mL/min (12/11/2024, 6:44am). Hence, I opted to hold off further IV fluid rehydration, as patient continued/continues to tolerate a regular diet well since 12/10/2024 dinner meal. 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 Alba Pritchard, hyperlipidemia on rosuvastatin 5mg PO qhs, paroxysmal AFIB s/p Medtronic PPM (implant date 06/10/2019, [facility] CARDS Dr. Faraz Jackson) on flecainide 150mg PO bid and diltiazem 240mg PO daily, and HTN on losartan 50mg PO qam and spironolactone 25mg PO qam, who reports: "I started seeing my stool turn from brown to light yusra and my pee turned from yellow to dark orange 5 days ago. No bleeding. No nausea or vomit or diarrhea or belly pain. No fevers or chills. Never had this happen to me before. Then my eyes started turning from white to light yellow 3 days ago. Then I started to itch all over my arms 2 days ago. Now I am in the ER trying to figure out what is going on." Patient denies antecedent/coincident fevers, chills, diaphoresis, cough, wheeze, sore throat, hemoptysis, chest pains, palpitations, pleurisy, nausea, vomiting, diarrhea, abdominal pain, pelvic pain, hematemesis, hematochezia, melena, hematuria, dysuria, frequency, urgency, headaches, dizziness, lightheadedness, visual changes, hearing changes, weakness, falls, syncope, trauma, travel history, sick contacts, or food/drug ingestions novel or new. All other review of systems are reported as negative by the patient on admission date 12/10/2024. In [facility] ER bed #C12, patient was afebrile @ 36.9 degrees Celsius, HR 76, RR 18, O2 sat 97% on room air, and BP 164/88 (12/10/2024, 3:13pm). Exam was noted for sallow complexion, scleral icterus, and lichenification/excoriation of bilateral forearms due to pruritus. Labs in [facility] ER bed #C12 included: WBC 9.48, Hb 14.2, MCV 79.0, MCHC 31.9, platelet 408 (12/10/2024, 10:05am). WBC 10.57, N77 L12 M9 E1 B1, Hb 14.1, MCV 77.2, MCHC 33.0, platelet 389 (12/10/2024, 3:25pm). Na 136, K 3.9, BUN 15, creatinine 1.14, GFR 49.9, glucose 98, Ca 9.5 (0 12/10/2024, 3:25pm). AST 203, ALT 366, ALK PHOS 456, TBili 9.3 (12/10/2024, 10:05am). AST 194, ALT 348, ALK PHOS 468, TBili 9.3 (12/10/2024, 3:25pm). Lipase 4 U/L (12/10/2024, 3:25pm). U/A: dark yellow, LE trace, nitrite-, 1+ bilirubin, urobilinogen-, WBC 0-2, RBC 0-2, epithelial cells 0-2, bacteria 0 (12/10/2024, 3:25pm). Additional testing in [facility] ER bed #C12 included: Abdominal U/S (12/10/2024, 11:32am): 1. Gallbladder sludge without evidence of acute cholecystitis. 2. Interval biliary dilatation. This could be due to common duct stone which is not visualized or a nonvisualized pancreatic head mass, or other finding. EKG (12/10/2024, 5:15pm): Atrial-pacing @ 60, NV 220, QTC 450 (by my review). Patient was subsequently admitted to the inpatient hospitalist service @ [facility] on 12/10/2024 with the following diagnoses: 1. R/O choledocholithiasis causing jaundice. 2. Pruritus caused by bile salts in skin in patient with jaundice with admission total bilirubin 9.3 mg/dL (12/10/2024, 10:05am, 3:25pm). 3. Mild dehydration with creatinine 1.14 mg/dL, GFR 49.9 mL/min (12/10/2024, 3:25pm). To address #1, patient was rejected by [facility] ER for patient transfer to [facility] ER to undergo ERCP @ [facility]. Patient subsequently will remain at [facility] until Friday morning (12/13/2024) when patient will undergo ERCP at [facility]. In the interim, I will trend LFT and bilirubin levels over the weekend. To address #2, patient was started on hydroxyzine 25mg PO q6 prn pruritus due to bile salts in skin in this patient with cholestatic liver disease. To address #3, patient was started on 1 liter of 0.9% NS @ 81 mL/hr (12/10/2024, 7:18pm), based on a delivery rate of 1 mL of 0.9% NS per kg of body weight per hour, and a body weight of 81.0 kg. I will check fluid-volume status and creatinine level in the 12/11/2024 am. Discharge Exam Constitutional General: Uncomfortable with patient actively scratching bilateral forearms (most probably due to bile salt deposition in skin in the setting of cholestatic liver disease), yet cooperative, coherent. Wide awake and alert. Not confused, lethargic, or obtunded. Patient speaks in complete, fluent, and articulate sentences without pause, interruption, cough, or wheeze. HEENT: Normocephalic, atraumatic. Pupils equally round and reactive to light. Scleral icterus. No nystagmus, gaze paresis, anisocoria, miosis, mydriasis, hyphema, scleral injection, conjunctivitis, or pterygium. No otorrhea. No pharyngeal erythema, edema, or discharge. Neck: Supple, no stridor, bruit, goiter, or hepato-jugular reflux. Jugular venous pressure is estimated to be 3 cm above the sternal angle of Ricky, which in turn, is 5 cm above the level of the right atrium; with jugular venous pressure estimated to be 8 cm, then, there is no jugular venous distention on 12/13/2024. Lymphatics: No cervical (anterior/posterior), supraclavicular, infraclavicular, axillary, epitrochlear, or inguinal adenopathy. Chest: Symmetric rise and fall with respirations. Non-tender to palpation. Medtronic PPM in left chest wall in situ; unclear if Medtronic PPM is MRI compatible or not MRI compatible. Lungs: Clear to auscultation and percussion. No audible expiratory wheeze, egophony, pectoriloquy, increase in tactile fremitus, or flatness/dullness to percussion at the bases. Heart: RRR. S1 and S2 noted. No S3 or S4 summation gallop. No tripartite friction rub. Grade II/ early systolic murmur @ LLSB without radiation to the carotids, axilla, or back, and which remains invariant in regards to the respiratory cycle. Abdomen: Soft, non-tender, non-distended. No rebound, guarding, Reyes's sign, or organomegaly. Bowel sounds auscultated in all 4 quadrants. Extremities: No clubbing, cyanosis, or edema in upper extremities or lower extremities bilaterally. 2+ pedal pulses bilaterally. Lichenification/excoriation of bilateral forearms due to pruritus. Skin: Sallow complexion. No decubitus ulcer or enanthem. Genito-urinary: No urethral discharge. No dodge catheter. Neurology: Alert and oriented in regards to person, place, time, and situation. 5/5 motor strength in all 4 extremities, both proximally and distally. No pronator drift. No dysarthria. No facial droop. Psychiatry: No homicidal ideation. No suicidal ideation. No flat affect; smiles appropriately. Discharge Plan Discharge Items Patient Disposition: Transfer Acute Care Hospital Reason For Visit: CHOLEDOCHOLITHIASIS Discharge Diagnosis: 1. Painless jaundice, due to presumed pancreatic adenocarcinoma with 2 pancreatic head lesions (cf., 2.9 cm x 2.7 cm and 2.4 cm x 2.3 cm, as noted on 12/13/2024, 10:31am CT pancreas, 3 phase, with/without IV contrast), awaiting transfer to [facility] on 12/14/[address] am [address] Jourdan Tamayo, and awaiting Endoscopic UltraSound (EUS) with biopsy of 2 pancreatic head lesions with GI Service @ [facility] on 12/14/2024 am. Condition on Discharge: Fair Activity: Resume your previous activity Lifting: Gradually increase as tolerated Bathing: No limitations Weightbearing: Full weightbearing Non-emergency contact: Primary Care Provider Call non-emergency contact if: you have any medication questions Follow-up/Referrals: Patricia Gillis MD [Primary Care Provider] - Dietitian Info: NPO after 12/14/24, 12:00am for EUS @ [facility] [place] Diet: Other - See Diet Comment Addtl Attending Provider Instructions: See your PCP Dr. Patricia Gillis within 5-7 days of hospital discharge. Pending Studies at Discharge: Yes Studies:: Endoscopic U/S @ [facility] [place] on 12/14/2024 am to rule out pancreatic CA. 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 DO OVERNIGHT PULSE OX 3 WEEKS AFTER CHANGE IS MADE WITH CPAP ON Held aspirin [Adult Low Dose Aspirin] 81 mg tablet,delayed release (DR/EC) 81 mg PO DAILY Hold Instructions: Resume on 12/15/24. Resume on 12/15/2024. Hold OFF this medication until AFTER endoscopic ultrasound with biopsies of 2 pancreatic head lesions is completed on 12/14/2024 am @ [facility] [place], a nd you are able to eat food/liquid and resume taking your home-scheduled medications, including this medication. omeprazole 40 mg capsule,delayed release(DR/EC) 40 mg PO DAILY Qty: 90 3RF Hold Instructions: Resume on 12/15/24. Resume on 12/15/2024. Hold OFF this medication until AFTER endoscopic ultrasound with biopsies of 2 pancreatic head lesions is completed on 12/14/2024 am @ [facility] [place], and you are able to eat food/liquid and resume taking your home-scheduled medications, including this medication. losartan 50 mg tablet 50 mg PO QAM Qty: 90 3RF Hold Instructions: Resume on 12/15/24. Resume on 12/15/2024. Hold OFF this medication until AFTER endoscopic ultrasound with biopsies of 2 pancreatic head lesions is completed on 12/14/2024 am @ [facility] [place], and you are able to eat food/liquid and resume taking your home-scheduled medications, including this medication. spironolactone 25 mg tablet 25 mg PO QAM Qty: 90 3RF Hold Instructions: Resume on 12/15/24. Resume on 12/15/2024. Hold OFF this medication until AFTER endoscopic ultrasound with biopsies of 2 pancreatic head lesions is completed on 12/14/2024 am @ [facility] [place], and you are able to eat food/liquid and resume taking your home-scheduled medications, including this medication. flecainide 150 mg tablet 150 mg PO Q12H Qty: 180 3RF Hold Instructions: Resume on 12/15/24. Resume on 12/15/2024. Hold OFF this medication until AFTER endoscopic ultrasound with biopsies of 2 pancreatic head lesions is completed on 12/14/2024 am @ [facility] [place], and you are able to eat food/liquid and resume taking your home-scheduled medications, including this medication. furosemide [Lasix] 20 mg tablet 20 mg PO Q OTHER DAY PRN (Reason: edema) Qty: 45 2RF Hold Instructions: Resume on 12/15/24. Resume on 12/15/2024. Hold OFF this medication until AFTER endoscopic ultrasound with biopsies of 2 pancreatic head lesions is completed on 12/14/2024 am @ [facility] [place], and you are able to eat food/liquid and resume taking your home-scheduled medications, including this medication. diltiazem HCl 240 mg capsule,extended release 24hr 240 mg PO QAM Qty: 90 1RF Hold Instructions: Resume on 12/15/24. Resume on 12/15/2024. Hold OFF this medication until AFTER endoscopic ultrasound with biopsies of 2 pancreatic head lesions is completed on 12/14/2024 am @ [facility] [place], and you are able to eat food/liquid and resume taking your home-scheduled medications, including this medication. Rx Instructions: TAKE 1 CAPSULE BY MOUTH EVERY MORNING rosuvastatin 5 mg tablet 5 mg PO HS Qty: 90 1RF Hold Instructions: Resume on 12/15/24. Resume on 12/15/2024. Hold OFF this medication until AFTER endoscopic ultrasound with biopsies of 2 pancreatic head lesions is completed on 12/14/2024 am @ [facility] [place], and you are able to eat food/liquid and resume taking your home-scheduled medications, including this medication. cetirizine [Zyrtec] 10 mg tablet 5 mg PO QPM PRN (Reason: allergy symptoms) Hold Instructions: Resume on 12/15/24. Resume on 12/15/2024. Hold OFF this medication until AFTER endoscopic ultrasound with biopsies of 2 pancreatic head lesions is completed on 12/14/2024 am @ [facility] [place], and you are able to eat food/liquid and resume taking your home-scheduled medications, including this medication. glucosamine [id number]-rpmffqfegs 500-167-400 mg tablet 1 tab PO BID Hold Instructions: Resume on 12/15/24. Resume on 12/15/2024. Hold OFF this medication until AFTER endoscopic ultrasound with biopsies of 2 pancreatic head lesions is completed on 12/14/2024 am @ [facility] [place], and you are able to eat food/liquid and resume taking your home-scheduled medications, including this medication. Rx Instructions: give with meal/snack calcium carbonate [Calcium 600] 600 mg calcium (1,500 mg) Tablet 600 mg PO BIDM Hold Instructions: Resume on 12/15/24. Resume on 12/15/2024. Hold OFF this medication until AFTER endoscopic ultrasound with biopsies of 2 pancreatic head lesions is completed on 12/14/2024 am @ [facility] [place], and you are able to eat food/liquid and resume taking your home-scheduled medications, including this medication. coenzyme Q10 [CoQ-10] 100 mg Capsule 200 mg PO QAM Hold Instructions: Resume on 12/15/24. Resume on 12/15/2024. Hold OFF this medication until AFTER endoscopic ultrasound with biopsies of 2 pancreatic head lesions is completed on 12/14/2024 am @ [facility] [place], and you are able to eat food/liquid and resume taking your home-scheduled medications, including this medication. cholecalciferol (vitamin D3) [Vitamin D3] 5,000 unit Tablet 5,000 unit PO QAM Hold Instructions: Resume on 12/15/24. Resume on 12/15/2024. Hold OFF this medication until AFTER endoscopic ultrasound with biopsies of 2 pancreatic head lesions is completed on 12/14/2024 am @ [facility] [place], and you are able to eat food/liquid and resume taking your home-scheduled medications, including this medication. magnesium oxide 400 mg Capsule 400 mg PO BID Hold Instructions: Resume on 12/15/24. Resume on 12/15/2024. Hold OFF this medication until AFTER endoscopic ultrasound with biopsies of 2 pancreatic head lesions is completed on 12/14/2024 am @ [facility] [place], and you are able to eat food/liquid and resume taking your home-scheduled medications, including this medication. diclofenac sodium 1 % gel 2 g TOP QID PRN (Reason: JOINT/MUSCLE PAIN) Hold Instructions: Resume on 12/15/24. Resume on 12/15/2024. Hold OFF this medication until AFTER endoscopic ultrasound with biopsies of 2 pancreatic head lesions is completed on 12/14/2024 am @ [facility] [place], and you are able to eat food/liquid and resume taking your home-scheduled medications, including this medication. Discharge Orders: Discharge Order (Routine); Ordered 12/13/24 Ordered By: Christiano Horowitz Admission Data Admit Date/Time: 12/10/24 17:05 Attending Provider: Christiano Horowitz Admit Provider: Christiano Horowitz Primary Care Provider: Patricia Gillis Other Providers: Christiano Horowitz; Tiffanie Warner Jr Hospital Stay Data Consultations 12/10/24 16:46 ED Decision to Admit Stat 12/12/24 08:53 Consult Gastroenterology Routine Procedures Performed Operation Date: 12/13/24 08:20 <No data on this case meets the specified criteria> Diagnostic Imagining Performed 12/13/24 10:31 CT pancreas 3-phase wo/w con Routine Pending Results Patient Have Any Pending Studies at Discharge: Yes Discharge Instructions Given to Patient (Per Discharging Provider) See your PCP Dr. Patricia Gillis within 5-7 days of hospital discharge. Total Time Total Time Spent Total Time Spent (In Minutes): 35 minutes. Of this time period, 19 minutes were spent in coordinating patient's discharge. Coding Level of Care Code 29665 INP/OBS DISCH >30 MIN Diagnoses Choledocholithiasis K80.50 Pruritus L29.9 Acute dehydration E86.0
--- NOTE | 2024-12-13 16:54 | Communication Note ---
Date of Service: December 13, 2024 CT imaging confirms concern for pancreatic neoplasia. At least 2 lesions of the head of the pancreas with double duct sign. No obvious filling defects within the bile duct itself. Patient will benefit from an endoscopic ultrasound to confirm resectability. May then benefit from biliary drainage once staging has been completed. Pruritus primary indication for drainage at this point no signs for cholangitis. Reviewed anatomy through diagram and discussion of obstruction of the pancreatic and bile duct by head of the pancreas lesion. Patient and at the bedside voiced understanding. For transfer and EUS tomorrow.
[2024-12-13 18:33] VITALS: BP 113/65; PULSE 62
== END 2024-12-13 18:59 | disposition short-term general hospital (02) | DRG 445 ==
LOC: ED 15:01 → EDINP 17:05 → 3N 20:31